=== PATIENT | female | born 1985 | race Caucasian/White ===

== ENCOUNTER 2019-12-17 14:25 | Emergency (ER) | payer OTHER, SELFPAY ==
--- NOTE | ~2019-12-17 | XR_ITS ---
EXAMINATION: XR foot RT min 3V EXAM DATE: 12/17/2019 15:22 INDICATION: Initial encounter following injury, with pain of the right foot. TECHNIQUE: Right foot dorsoplantar, lateral and oblique projections obtained and reviewed. Compariso n is made to prior examination from 11/28/2016. FINDINGS: Right metatarsal bones unremarkable. Small calcaneal spurs. There are no acute fractures or dislocations identified. There is no subcutaneous gas. The soft tissue is unremarkable. There are no radiopaque foreign bodies. IMPRESSION: 1. XR foot RT min 3V exam without acute osseous findings. Reviewed, dictated and finalized at location B. LAB TECHNICIAN
[2019-12-17 14:27] VITALS: BP 145/98; PULSE 103; RESP 18; TEMP 36.2; O2SAT 97
--- NOTE | 2019-12-17 15:18 | PC.NURSE ---
Pt at xray at this time
--- NOTE | 2019-12-17 16:00 | ED.LOWEXIN ---
HPI - Extremity Injury (Lower) General Chief Complaint: Extremity Injury, Lower Stated Complaint: right foot injury Time Seen by Provider: 12/17/19 15:36 Source: patient Mode of arrival: ambulatory Limitations: no limitations History of Present Illness HPI Narrative: This is a 34 year old female that presents to the ER for right foot pain x 1 week. Reports she rolled the ankle. Since she has had increasing pain in the dorsal and lateral surface of the foot. Denies decreased ROM or numbness. Related Data Allergies Allergy/AdvReac Type Severity Reaction Status Date / Time Penicillins Allergy Unknown HIVES Verified 12/17/19 14:29 Review of Systems Review of Systems: Narrative: CONSTITUTIONAL: Denies fever MUSCULOSKELETAL: Reports joint pain, and myalgia. All systems reviewed & are unremarkable except as noted in HPI and below PMFSH Past Medical History Medical History (Updated 12/17/19 @ 16:08 by Marissa Mendoza PA-C) History of depression History of hypertension Surgical History Surgical History (Updated 12/17/19 @ 16:04 by Marissa Mendoza PA-C) History of cholecystectomy History of hernia repair Exam Narrative: Exam Narrative: GENERAL: Well-appearing, well-nourished, and in no acute distress. HEAD: Normocephalic, atraumatic. EYES: EOMI. EXTREMITIES: Normal range of motion. No edema or obvious deformity. Normal DP pulses. Normal sensation SKIN: Warm, dry, no rash. NEURO: No focal deficits. Alert and oriented x3. PSYCH: Normal mood and affect Course Vital Signs Vital signs: Vital Signs Temperature 97.1 F L 12/17/19 14:27 Pulse Rate 103 H 12/17/19 14:27 Respiratory Rate 18 12/17/19 14:27 Blood Pressure 145/98 H 12/17/19 14:27 Pulse Oximetry 97 12/17/19 14:27 Temperature 97.1 F L 12/17/19 14:27 Pulse Rate 103 H 12/17/19 14:27 Respiratory Rate 18 12/17/19 14:27 Blood Pressure 145/98 H 12/17/19 14:27 Pulse Oximetry 97 12/17/19 14:27 MDM - Extremity Injury (Lower) MDM Narrative Medical decision making narrative: Patient presents to the emergency department for right foot pain after an injury 1 week ago. Right foot x-rays without acute osseous abnormalities. Patient was instructed on care of foot sprain. She is to follow-up with primary care doctor. She was given warnings to return to the ER Imaging Data Radiologist's impression: ITS Impressions Foot X-Ray 12/17/19 15:23 IMPRESSION: 1. XR foot RT min 3V exam without acute osseous findings. Critical Care Time Critical Care Time Critical Care Time: No Discharge Plan Discharge Clinical Impression: Right foot sprain Qualifiers: Encounter type: initial encounter Qualified Code(s): S93.601A - Unspecified sprain of right foot, initial encounter Patient Disposition: Home, Self-Care Condition: Stable Instructions: Foot Sprain (ED) Additional Instructions: Return to the emergency department if you experience fever, redness and swelling of your leg, or any other symptoms that are concerning to you Wear BECKI wrap and use crutches. No weight on the affected leg until able to bear weight without pain. Ice and elevate extremity. Pain medication as needed and directed. Follow up with your doctor for further care. Follow-up/Referrals: Jesus,Mesfin Shanks MD [Primary Care Provider] - 1 Week
[2019-12-17] MEDS: KETOROLAC (*BKC) 60 MG/2 ML VIAL IM (16:07)
[2019-12-17 16:22] VITALS: BP 146/100; PULSE 79; RESP 16; TEMP 37; O2SAT 97
== END 2019-12-17 16:23 | disposition home or self-care (01) ==
PROVIDERS: Emergency Provider Emergency Medicine; PCP Family Medicine
DX: S93.601A Unspecified sprain of right foot, initial encounter (principal); X50.0XXA Overexertion from strenuous movement or load, initial encounter
CPT/HCPCS: 73630; 96372; 99283; J1885

== ENCOUNTER 2020-04-21 20:57 | Emergency (ER) | payer OTHER, SELFPAY ==
--- NOTE | ~2020-04-21 | CT_ITS ---
EXAMINATION: CT abdomen pelvis w con INDICATION: Left lower quadrant pain TECHNIQUE: Computed tomographic images of the abdomen and pelvis were obtained after the administrati on of 100 cc of Omnipaque 350 intravenous contrast. The dose-length product (DLP) was 1532.37 mGy-cm. Automated exposure control and iterative reconstruction technique were employed. COMPARISON: 10/18/2012 FINDINGS: Minimal dependent atelectasis is present in the lung bases. The heart size is normal. The g allbladder is surgically absent. There is mild enlargement of the common bile duct and central intrah epatic ducts which is likely due to post cholecystectomy state. The liver, spleen, pancreas,, and adr enal glands are normal. The kidneys are unremarkable. No pathologically enlarged abdominal or pelvic lymph nodes are identified. There is no free intraperitoneal gas or evidence of bowel obstruction. Co lonic diverticula are noted. There is acute inflammatory change adjacent to the distal descending col on. The appendix is normal. There is severe lumbar spondylosis at L4-5. IMPRESSION: 1. Acute, uncomplicated diverticulitis of the distal descending colon. Reviewed, dictated and finalized at location A. R CUTTER
[2020-04-21 21:00] VITALS: BP 148/99; PULSE 87; RESP 16; TEMP 36.4; O2SAT 100
[2020-04-21 22:14] LABS: Add Urine Microscopic? YES; Appearance Urine Clear (Clear); Bilirubin Urine Negative (Negative); Blood Urine 2+ (Negative); Color Urine Yellow (Yellow); Glucose Urine UA Negative (Negative); Ketones Urine Negative (Negative); Leukocyte Esterase Ur Negative LEU/UL (Negative); Mucus Urine Rare /lpf; Nitrate Urine Negative (Negative); Protein Urine Negative (Negative); RBC Urine 0-2 /hpf (0-2); Specific Grav Ur 1.013 (1.001-1.035); Squamous Epithelial Cell Urine Occasional /hpf (Few); Urobilinogen Urine Negative mg/dL (<2.0); WBC Urine 0-3 /hpf
[2020-04-21 22:39] LABS: Basophils Absolute Auto 0.1 K/mm3 (0.0-0.1); Basophils Percent Auto 0.5 % (0.2-1.2); Eosinophils Absolute Auto 1.2 K/mm3 (0-0.3); Eosinophils Percent Auto 6.3 % (0-4.4); Hematocrit 40.2 % (37.0-47.0); Hemoglobin 12.5 g/dL (12.0-15.0); Immature Granulocyte Absolute 0.08 K/mm3 (0.00-0.031); Immature Granulocyte Percent A 0.4 % (0-0.5); Lymphocytes Absolute Auto 4.67 K/mm3 (0.9-3.2); Lymphocytes Percent Auto 24.7 % (18.3-44.2); Mean Corpuscular HGB Conc 31.1 g/dl (32-36); Mean Corpuscular Hemoglobin 25.3 pg (26-34); Mean Corpuscular Volume 81.4 fl (80-100); Mean Platelet Volume 11.1 fl (7.4-10.4); Monocytes Absolute Auto 1.5 K/mm3 (0.1-0.6); Monocytes Percent Auto 7.8 % (2.6-8.5); Neutrophils Absolute Auto 11.4 K/mm3 (1.3-6.7); Neutrophils Percent Auto 60.3 % (45.5-73.1); Platelet Count Result 378 k/mm3 (150-375); Red Blood Count 4.94 M/mm3 (4.2-5.4); Red Cell Distribution Width 16.3 % (11.5-14.5); White Blood Count 18.9 K/mm3 (4.5-10.0)
[2020-04-21 22:50] LABS: Alanine Aminotransferase 16 U/L (4-35); Albumin Level 3.7 g/dL (3.5-5.1); Alkaline Phosphatase 103 U/L (38-126); Anion Gap 5 mmol/L (8-16); Aspartate Amino Transferase 18 U/L (14-36); Bilirubin,Total 0.2 mg/dL (0.2-1.3); Blood Urea Nitrogen 10 mg/dL (7-17); Calcium 8.7 mg/dL (8.4-10.2); Carbon Dioxide 28 mmol/L (22-30); Chloride 107 mmol/L (98-107); Estimated CRCL calculation 175 ml/min; Estimated Glomerular Filt Rate > 60; Glucose 109 mg/dL (65-105); Lipase 94 U/L (23-300); Potassium 3.5 mmol/L (3.4-5.0); Sodium 140 mmol/L (137-145)
--- NOTE | 2020-04-22 00:15 | ED.ABDPAIN ---
HPI - Abdominal Pain General Chief Complaint: Abdominal Pain Stated Complaint: ovarian cyst rupture Time Seen by Provider: 04/21/20 23:38 History of Present Illness HPI narrative: Severe lower abdominal pain since this afternoon. Feels sharp. Assocaited with vaginal spotting. Similar to the pain she had with a rupture ovarian cyst. She does report mild constipation. No nausea, fever, dysuria, hematuria. Related Data Allergies Allergy/AdvReac Type Severity Reaction Status Date / Time Penicillins Allergy Unknown HIVES Verified 12/17/19 14:29 Review of Systems Review of Systems: All systems reviewed & are unremarkable except as noted in HPI and below Constitutional: Constitutional: Denies fever(s) Eyes: Eyes: Reports no additional eye complaints ENT: Reports system reviewed and no additional complaints, except as documented Cardiovascular: Cardiovascular: Denies chest pain Respiratory: Respiratory: Denies dyspnea Gastrointestinal: Gastrointestinal: Reports abdominal pain, Reports constipation, Denies nausea and Denies vomiting Genitourinary: Genitourinary: Reports as per HPI Musculoskeletal: Musculoskeletal: Denies back pain Neurologic: Reports system reviewed and no additional complaints, except as documented [facility] Past Medical History Medical History History of depression History of hypertension Surgical History Surgical History History of cholecystectomy History of hernia repair Social History Social History (Updated 04/22/20 @ 02:50 by Warren Jay MD) Smoking status: Never smoker Exam Const: General: no acute distress and alert Nutritional Appearance: obese Orientation/consciousness: patient oriented x3 HENMT: Head: normal to inspection Neck: Neck: normal visual inspection and no lymphadenopathy Chest: Chest palpation & inspection: no tenderness Resp: Effort & Inspection: normal respiratory effort Auscultation: clear to auscultation bilaterally, no rales, no rhonchi and no wheezes Cardio: Jugular venous distension: no JVD Rate: regular rate Rhythm: regular rhythm Heart sounds: no murmurs GI: Inspection: non-distended GI Palp: Yes Soft to palpation and Yes Tenderness to palpation present (GI) (periumbilical) Skin: General skin exam: normal color Neuro: General: patient oriented x3, moves all extremities, no focal motor deficits and CN's II-XI intact bilaterally Speech: normal speech Extrem: General: normal to inspection and no edema Psych: Appearance: well kempt Affect: normal affect Course Vital Signs Vital signs: Vital Signs Temperature 36.4 C 04/21/20 21:00 Pulse Rate 87 04/21/20 21:00 Respiratory Rate 16 04/21/20 21:00 Blood Pressure 148/99 H 04/21/20 21:00 Pulse Oximetry 100 04/21/20 21:00 Temperature 36.4 C 04/21/20 21:00 Pulse Rate 69 04/22/20 01:55 Respiratory Rate 18 04/22/20 01:55 Blood Pressure 151/102 H 04/22/20 01:55 Pulse Oximetry 100 04/22/20 01:55 MDM - Abdominal Pain MDM Narrative Medical decision making narrative: She has uncomplicated diverticulitis. She is a good candidate fo out patient treatment. Differential Diagnosis Differential diagnosis: Likely acute appendicitis, constipation, diverticulitis, pancreatitis, small bowel obstruction and other (ovarian cyst) Medical Records Attestation: I reviewed the patient's medical records. Lab Data Attestation: I reviewed the patient's lab results. Result diagrams: 04/21/20 21:05 04/21/20 21:05 Labs: Lab Results 04/21/20 04/21/20 04/21/20 Range/Units 21:05 21:05 21:16 WBC 18.9 H (4.5-10.0) K/mm3 RBC 4.94 (4.2-5.4) M/mm3 Hgb 12.5 (12.0-15.0) g/dL Hct 40.2 (37.0-47.0) % MCV 81.4 (80-100) fl MCH 25.3 L (26-34) pg MCHC 31.1 L (32-36) g/dl RDW 16.3 H (11.5-14.5) % Plt Count
[2020-04-22] MEDS: fentaNYL CITRATE INJ (*CRX) 100 MCG/2 ML VIAL 50 MCG IV PUSH (00:53)
[2020-04-22] MEDS: CIPROFLOXACIN 500 MG TAB PO (01:52)
[2020-04-22] MEDS: metroNIDAZOLE 250 MG TABLET 500 MG PO (01:53)
[2020-04-22 01:55] VITALS: BP 151/102; PULSE 69; RESP 18; O2SAT 100
[2020-04-22 03:04] VITALS: BP 149/95; PULSE 71; RESP 20; O2SAT 98
== END 2020-04-22 03:05 | disposition home or self-care (01) ==
PROVIDERS: Emergency Provider Emergency Medicine; PCP Family Medicine
DX: K57.32 Diverticulitis of large intestine without perforation or abscess without bleeding (principal); I10 Essential (primary) hypertension
CPT/HCPCS: 36415; 74177; 80053; 81001; 81025; 83690; 85025; 96374; 99284; A9270; J3010; Q9967

== ENCOUNTER 2021-02-13 14:06 | Emergency (ER) | payer OTHER, SELFPAY ==
--- NOTE | ~2021-02-13 | XR_ITS ---
EXAMINATION: XR chest 1V portable EXAM DATE: 02/13/2021 17:24 INDICATION: Cough TECHNIQUE: Portable AP frontal chest x-ray was obtained. There are no prior studies for comparison. FINDINGS: The lungs are clear. There are no pleural effusions. The cardiomediastinal silhouette is within normal limits. There is no pneumothorax suspected. The bones and soft tissues are unremarkab le. IMPRESSION: No acute cardiopulmonary findings. Reviewed, dictated and finalized at location A. GHT RECEIVER
--- NOTE | ~2021-02-13 | XR_ITS ---
EXAMINATION: XR knee RT min 4V EXAM DATE: 02/13/2021 14:51 INDICATION: Anterior right knee pain, no known injury. TECHNIQUE: Right knee lateral, frontal AP, frontal PA tunnel, sunrise projections. There is no prior study for comparison. FINDINGS: No evidence osteochondral defect or joint body in the right knee joint. There are no acut e fractures or dislocations identified. There is no subcutaneous gas. The soft tissue is unremarkab le. There are no radiopaque foreign bodies. Mild osteoarthritis. IMPRESSION: Mild right knee osteoarthritis. Reviewed, dictated and finalized at location A. CONTROL WORKER
[2021-02-13 14:13] VITALS: BP 150/98; PULSE 126; RESP 22; TEMP 37.8; O2SAT 97
[2021-02-13] MEDS: MORPHINE SULFATE (*CRX) 4 MG/ML INJ IV PUSH (15:16)
[2021-02-13] MEDS: SODIUM CHLORIDE 0.9% IV 1,000 ML 999 ML IV CONT (15:17)
[2021-02-13] MEDS: ACETAMINOPHEN 500 MG TABLET 1000 MG PO (15:17)
[2021-02-13 15:18] LABS: Basophils Absolute Auto 0.1 K/mm3 (0.0-0.1); Basophils Percent Auto 0.5 % (0.2-1.2); Eosinophils Absolute Auto 1.1 K/mm3 (0-0.3); Eosinophils Percent Auto 6.6 % (0-4.4); Hematocrit 38.2 % (37.0-47.0); Hemoglobin 12.4 g/dL (12.0-15.0); Immature Granulocyte Absolute 0.09 K/mm3 (0.00-0.031); Immature Granulocyte Percent A 0.5 % (0-0.5); Lymphocytes Absolute Auto 0.55 K/mm3 (0.9-3.2); Lymphocytes Percent Auto 3.3 % (18.3-44.2); Mean Corpuscular HGB Conc 32.5 g/dl (32-36); Mean Corpuscular Hemoglobin 25.4 pg (26-34); Mean Corpuscular Volume 78.3 fl (80-100); Mean Platelet Volume 10.1 fl (7.4-10.4); Monocytes Absolute Auto 1.5 K/mm3 (0.1-0.6); Monocytes Percent Auto 8.8 % (2.6-8.5); Neutrophils Absolute Auto 13.6 K/mm3 (1.3-6.7); Neutrophils Percent Auto 80.3 % (45.5-73.1); Platelet Count Result 352 k/mm3 (150-375); Red Blood Count 4.88 M/mm3 (4.2-5.4); Red Cell Distribution Width 16.9 % (11.5-14.5); White Blood Count 16.9 K/mm3 (4.5-10.0)
[2021-02-13 15:26] LABS: Lactic Acid Reflex 1.4 mmol/L (0.7-2.1)
[2021-02-13 15:30] LABS: Anion Gap 11 mmol/L (8-16); Blood Urea Nitrogen 8 mg/dL (7-17); CRP 2.3 mg/dL (<1.0); Calcium 9.1 mg/dL (8.4-10.2); Carbon Dioxide 23 mmol/L (22-30); Chloride 101 mmol/L (98-107); Estimated CRCL calculation 130 ml/min; Estimated Glomerular Filt Rate > 60; Glucose 92 mg/dL (65-110); Potassium 3.9 mmol/L (3.4-5.0); Sodium 135 mmol/L (137-145)
--- NOTE | 2021-02-13 15:31 | ED.GENADULT ---
HPI - General Adult General Chief complaint: Extremity Injury, Lower Stated complaint: cant put weight on right leg, prev ACL inj Time Seen by Provider: 02/13/21 14:35 History of Present Illness HPI narrative: Patient is a 36-year-old female who presents ER with right knee pain. Aching over the last couple days. Woke up today and has severe pain in the knee and cannot stand on it. No trauma. She has developed fever today. No redness or swelling to the knee. Patient is vaccinated against COVID-19. 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 Patient is also having a headache at this time. No photophobia or phonophobia. She has not taken any medication for. No numbness or tingling in the arms or legs. No neck stiffness. Patient reports she is sexually active with one partner for the last 4 years. No vaginal discharge or concern for STI. No urinary frequency urgency or dysuria. Related Data Allergies Allergy/AdvReac Type Severity Reaction Status Date / Time Penicillins Allergy Unknown HIVES Verified 12/17/19 14:29 cheese Allergy Rash Verified 02/13/21 14:18 Review of Systems Review of Systems: All systems reviewed & are unremarkable except as noted in HPI and below Constitutional: Constitutional: Reports chills and Reports fever(s) ENT: Denies nasal congestion and Denies sore throat Respiratory: Respiratory: Denies cough and Denies dyspnea Gastrointestinal: Gastrointestinal: Denies abdominal pain, Denies nausea and Denies vomiting Genitourinary: Genitourinary: Denies nocturia, Denies dysuria, Denies urinary urgency and Denies vaginal discharge Musculoskeletal: Musculoskeletal: Reports arthralgias, Denies joint swelling and Denies muscle cramps Neurologic: Reports headache(s), Denies focal weakness and Denies numbness PMFSH Past Medical History Medical History History of depression History of hypertension Surgical History Surgical History History of cholecystectomy History of hernia repair Social History Social History (Updated 04/22/20 @ 02:50 by Warren Jay MD) Smoking status: Never smoker Exam Narrative: GENERAL: Well-appearing, well-nourished, and in no acute distress. HEAD: Normocephalic, atraumatic. EYES: PERRL and EOMI. NECK: Supple. Normal range of motion without meningismus. CHEST: Clear to auscultation. No respiratory distress. HEART: Tachycardic and regular. Normal peripheral pulses. ABDOMEN: Soft, nontender, nondistended. EXTREMITIES: Focused evaluation of right lower extremity reveals normal range of motion without redness or swelling to the knee. No localizing tenderness. SKIN: Warm, dry, no rash. NEURO: Alert and oriented x3. PSYCH: Normal mood and affect. Course Course Emergency Course: Synovial fluid with 1400 white blood cells, yellow and hazy but you can see through it. Not consistent with septic joint as the knee is not red and hot and she has range of motion. Patient feels much better from a pain standpoint in her head and her knee since she has had morphine as well as Toradol and Tylenol. She has no urinary symptoms. No evidence of pneumonia. Influenza negative. Patient will be swabbed for Covid and will self isolate. Vital Signs Vital signs: Vital Signs Temperature 100.1 F H 02/13/21 14:13 Pulse Rate 126 H 02/13/21 14:13 Respiratory Rate 22 H 02/13/21 14:13 Blood Pressure 150/98 H 02/13/21 14:13 Pulse Oximetry 97 02/13/21 14:13 Temperature 100.8 F H 02/13/21 16:42 Pulse Rate 104 H 02/13/21 18:12 Respiratory Rate 17 02/13/21 18:07 Blood Pressure 118/70 02/13/21 18:07 Pulse Oximetry 97 02/13/21 18:12 Procedures Joint Aspiration/Injection Joint Asp./Inject. 1: Joint Aspiration Date: 02/13/21
[2021-02-13 15:49] LABS: Erythrocyte Sedimentation Rate 14 mm/hr (0-20)
[2021-02-13 16:42] VITALS: BP 111/62; PULSE 107; RESP 18; TEMP 38.2; O2SAT 94
[2021-02-13 17:35] LABS: Appearance Synovial Fluid Hazy (Clear); Color Synovial Fluid Yellow (Colorless); Source Synovial Fluid Synovial fluid
[2021-02-13 17:36] LABS: Lymphocytes Synovial Fluid 77 %; Monocytes Synovial Fluid 12 %; Neutrophils Synovial Fluid 11 % (0-25); Nucleated Cell Synovial Fluid 1484 /uL (0-200); RBC Synovial Fluid 0 /uL (0-0)
[2021-02-13 17:40] LABS: Crystals Synovial Fluid None Seen (None Seen)
[2021-02-13 17:46] VITALS: BP 128/84; PULSE 100; RESP 18; O2SAT 94
[2021-02-13] MEDS: KETOROLAC 30 MG/ML VIAL (*BKC) IV PUSH (17:47)
[2021-02-13 18:07] VITALS: BP 118/70; PULSE 108; RESP 17; O2SAT 93
[2021-02-13 18:12] VITALS: PULSE 104; O2SAT 97
[2021-02-13 20:47] VITALS: TEMP 37.6
[2021-02-14 14:14] LABS: SARS-CoV-2 RNA PCR Positive
[2021-02-18 16:24] LABS: Glucose Synovial Fluid 97 mg/dL
== END 2021-02-13 20:48 | disposition home or self-care (01) ==
PROVIDERS: Emergency Provider Emergency Medicine; PCP Family Medicine
DX: U07.1 COVID-19 (principal); M25.561 Pain in right knee; I10 Essential (primary) hypertension
CPT/HCPCS: 20610; 36415; 71045; 73564; 80048; 82945; 83605; 84157; 85025; 85652; 86140; 87040; 87070; 87075; 87205; 87804; 89051; 89060; 96361; 96374; 96375; 99284; A9270; C9803; J1885; J2270; J7030; U0003; U0005

== ENCOUNTER 2021-06-22 17:55 | Emergency (ER) | payer OTHER, SELFPAY ==
--- NOTE | ~2021-06-22 | CT_ITS ---
EXAMINATION: CT abdomen pelvis w con DATE: 06/22/2021 20:37 INDICATION: LLQ pain hx of diverticulitis TECHNIQUE: Computed tomography (CT) of the abdomen and pelvis was performed with 100 mL Omnipaque-300 intravenous contrast. Automated exposure control and iterative reconstruction technique were employe d. The dose-length product was 1499.55 mGy-cm. COMPARISON: 04/22/2020. FINDINGS: Lower thorax: Unremarkable Liver: Normal. Biliary/Gallbladder: Gallbladder is absent. Mild bile duct dilation likely secondary to cholecystecto my. Spleen: Normal. Pancreas: No mass or duct dilation. Adrenals:1.2 cm indeterminate density right adrenal mass. Kidneys: No mass, stone, or hydronephrosis. GI tract: No small or large bowel dilation. Normal appendix. Diverticulosis. Mild short segment peric olonic inflammatory change at the mid descending colon. Mesentery/Peritoneum: No ascites, mass, or free air. Retroperitoneum: No mass. Pelvis: Pelvic organs are within normal limits. Soft Tissues: Soft tissues and body wall unremarkable. Bones: No acute osseous finding. IMPRESSION: Acute uncomplicated diverticulitis involving the mid descending colon. Indeterminate 1.2 cm right adr enal mass, probably benign, consider 12 month follow-up adrenal CT for further evaluation. Reviewed, dictated and finalized at location K. IMPRESSION: Acute uncomplicated diverticulitis involving the mid descending colon. Indeterm inate 1.2 cm right adrenal mass, probably benign, consider 12 month follow-up a drenal CT for further evaluation.
[2021-06-22 18:04] VITALS: BP 151/93; PULSE 69; RESP 18; TEMP 36.5; O2SAT 98
[2021-06-22 18:50] LABS: Basophils Absolute Auto 0.1 K/mm3 (0.0-0.1); Basophils Percent Auto 0.6 % (0.2-1.2); Eosinophils Percent Auto 5.6 % (0-4.4); Hematocrit 37.9 % (37.0-47.0); Hemoglobin 11.4 g/dL (12.0-15.0); Immature Granulocyte Absolute 0.08 K/mm3 (0.00-0.031); Immature Granulocyte Percent A 0.5 % (0-0.5); Lymphocytes Absolute Auto 4.04 K/mm3 (0.9-3.2); Mean Corpuscular HGB Conc 30.1 g/dl (32-36); Mean Corpuscular Hemoglobin 23.6 pg (26-34); Mean Corpuscular Volume 78.3 fl (80-100); Mean Platelet Volume 9.9 fl (7.4-10.4); Monocytes Absolute Auto 1.2 K/mm3 (0.1-0.6); Monocytes Percent Auto 6.6 % (2.6-8.5); Neutrophils Absolute Auto 11.2 K/mm3 (1.3-6.7); Neutrophils Percent Auto 63.7 % (45.5-73.1); Platelet Count Result 406 k/mm3 (150-375); Red Blood Count 4.84 M/mm3 (4.2-5.4); Red Cell Distribution Width 17.1 % (11.5-14.5); White Blood Count 17.6 K/mm3 (4.5-10.0)
[2021-06-22 18:51] LABS: Appearance Urine Clear (Clear); Bilirubin Urine Negative (Negative); Blood Urine Negative (Negative); Color Urine Yellow (Yellow); Glucose Urine UA Negative (Negative); Ketones Urine Negative (Negative); Leukocyte Esterase Ur Negative LEU/UL (Negative); Nitrate Urine Negative (Negative); Protein Urine Negative (Negative); Specific Grav Ur 1.015 (1.001-1.035); Urobilinogen Urine 0.2 mg/dL (<2.0)
[2021-06-22 18:55] LABS: Mucus Urine Rare /lpf; RBC Urine 0-2 /hpf (0-2); Squamous Epithelial Cell Urine Few /hpf (Few); WBC Urine 0-3 /hpf
[2021-06-22 18:56] LABS: Add Urine Microscopic? YES
[2021-06-22 19:00] LABS: Alanine Aminotransferase 19 U/L (6-35); Albumin Level 3.9 g/dL (3.5-5.1); Alkaline Phosphatase 95 U/L (38-126); Anion Gap 5 mmol/L (8-16); Aspartate Amino Transferase 23 U/L (14-36); Bilirubin,Total 0.1 mg/dL (0.2-1.3); Blood Urea Nitrogen 8 mg/dL (7-17); Calcium 8.5 mg/dL (8.4-10.2); Carbon Dioxide 27 mmol/L (22-30); Chloride 106 mmol/L (98-107); Estimated CRCL calculation 114 ml/min; Estimated Glomerular Filt Rate > 60; Glucose 104 mg/dL (65-110); Lipase 89 U/L (23-300); Sodium 138 mmol/L (137-145)
[2021-06-22 19:16] VITALS: BP 154/68; PULSE 68; RESP 26
--- NOTE | 2021-06-22 19:30 | ED.ABDPAIN ---
HPI - Abdominal Pain General Chief Complaint: Abdominal Pain Stated Complaint: ovarian cyst rupture Time Seen by Provider: 06/22/21 19:13 Source: patient History of Present Illness HPI narrative: Patient presents with left lower quadrant abdominal pain. For symptoms been present since yesterday has been getting progressively worse so she came to the ER for further evaluation. Reports a history of ovarian cyst rupture and this feels similar to those episodes. She also reports a history of diverticulitis requiring antibiotics. Denies any nausea or vomiting. Reports pain in her bladder when she is fully distended but it is alleviated when she urinates. Just with some mild diarrhea history of IBS and is unsure if this is due to her IBS or if this is new. Related Data Allergies Allergy/AdvReac Type Severity Reaction Status Date / Time Penicillins Allergy Unknown HIVES Verified 12/17/19 14:29 cheese Allergy Rash Verified 02/13/21 14:18 Review of Systems Review of Systems: CONSTITUTIONAL: Denies fever, chills, or sweats. EYES: Denies visual changes, redness, or discharge. ENT: Denies rhinorrhea, congestion, sore throat, or otalgia. CARDIOVASCULAR: Denies chest pain, palpitations, or edema. RESPIRATORY: Denies cough or dyspnea. GASTROINTESTINAL: Denies nausea, vomiting. GENITOURINARY: Denies dysuria or hematuria. SKIN: Denies rash or itching. MUSCULOSKELETAL: Denies back pain, joint pain, or myalgia. NEUROLOGIC: Denies headache, numbness, dizziness, or weakness. PSYCHIATRIC: Denies anxiety or depression. All systems reviewed & are unremarkable except as noted in HPI and below PMFSH Past Medical History Medical History History of depression History of hypertension Surgical History Surgical History History of cholecystectomy History of hernia repair Social History Social History Smoking status: Never smoker Exam Narrative: GENERAL: Well-appearing, well-nourished, and in no acute distress. HEAD: Normocephalic, atraumatic. EYES: PERRLA and EOMI. ENT: Nares clear, no rhinorrhea or epistaxis. Mucous membranes moist. NECK: Supple. No masses. No JVD CHEST: Clear to auscultation. No respiratory distress. No wheezes rales or rhonchi HEART: Regular rate and rhythm. No murmur heard. Normal peripheral pulses. ABDOMEN: Moderate tenderness in the left lower quadrant with guarding and rebound soft, nondistended. EXTREMITIES: Normal range of motion. No edema. SKIN: Warm, dry, no rash. NEURO: No focal deficits. Alert and oriented x3. PSYCH: Normal mood and affect. Course Reevaluation(s) Reevaluation #1: Patient resting results and plan reviewed with patient. Patient is comfortable outpatient plan. Date: 06/22/21 Time: 21:14 Vital Signs Vital signs: Vital Signs Temperature 36.5 C 06/22/21 18:04 Pulse Rate 69 06/22/21 18:04 Respiratory Rate 18 06/22/21 18:04 Blood Pressure 151/93 H 06/22/21 18:04 Pulse Oximetry 98 06/22/21 18:04 Temperature 36.5 C 06/22/21 18:04 Pulse Rate 61 06/22/21 21:17 Respiratory Rate 18 06/22/21 21:17 Blood Pressure 145/94 H 06/22/21 21:17 Pulse Oximetry 99 06/22/21 21:17 MDM - Abdominal Pain MDM Narrative Medical decision making narrative: H&P as above, vss, pt looks clinically well, exam with left lower abdominal pain, labs with leukocytosis otherwise unremarkable, img with concern for uncomplicated diverticulitis, additional labs/img considered, symptomatic relief available as needed, on reevaluation pt continues to looks clinically well. Suspect diverticulitis, dns perforation, bowel obstruction, severe sepsis, abscess. plan to tx/monitor as op w/ pcm f/u findings/plan discussed with pt, pt agree/comfortable with plan, return precautions given Lab Data Result diagrams: 06/22/21 18:41
[2021-06-22] MEDS: SODIUM CHLORIDE 0.9% IV 1,000 ML 999 ML IV CONT (20:13)
[2021-06-22] MEDS: KETOROLAC 15 MG/ML VIAL (*BKC) IV PUSH (20:15)
[2021-06-22 20:16] VITALS: BP 114/86; PULSE 60; RESP 12
[2021-06-22 20:22] VITALS: BP 114/86; PULSE 71; RESP 18; O2SAT 100
[2021-06-22 21:17] VITALS: BP 145/94; PULSE 61; RESP 18; O2SAT 99
[2021-06-22] MEDS: metroNIDAZOLE 250 MG TABLET 500 MG PO (21:18)
[2021-06-22] MEDS: levoFLOXacin 750 MG TABLET PO (21:36)
== END 2021-06-22 21:42 | disposition home or self-care (01) ==
PROVIDERS: Emergency Provider Emergency Medicine; PCP Family Medicine
DX: K57.32 Diverticulitis of large intestine without perforation or abscess without bleeding (principal); E27.8 Other specified disorders of adrenal gland; D72.829 Elevated white blood cell count, unspecified; I10 Essential (primary) hypertension
CPT/HCPCS: 36415; 74177; 80053; 81001; 81025; 83690; 85025; 96361; 96365; 96375; 99284; A9270; J0131; J1885; J7030; Q9967

== ENCOUNTER 2022-01-26 08:51 | Emergency (ER) | payer OTHER, SELFPAY ==
--- NOTE | 2022-01-26 08:55 | ED.URI ---
HPI - URI/Sore Throat General Chief Complaint: Upper Respiratory Infection Stated Complaint: sore throat Time Seen by Provider: 01/26/22 09:06 Source: patient and RN notes reviewed Mode of arrival: ambulatory Limitations: no limitations History of Present Illness HPI Narrative: 32-year-old female presents concern for sore throat, headache, body aches, cough. Reports symptoms started last night. Reports she took a COVID test last night at work was negative. 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 She reports using cough drops MD elicited complaint: cough and sore throat Related Data Home Medications Medication Instructions Recorded Confirmed gabapentin 600 mg tablet 300 mg PO DIRECTED 01/26/22 01/26/22 Allergies Allergy/AdvReac Type Severity Reaction Status Date / Time Penicillins Allergy Unknown HIVES Verified 01/26/22 09:04 cheese Allergy Rash Verified 01/26/22 09:04 Review of Systems Review of Systems: CONSTITUTIONAL: Reports malaise, chills, sweats EYES: Denies visual changes, redness, or discharge. ENT: Reports rhinorrhea, congestion and sore throat. CARDIOVASCULAR: Denies chest pain, palpitations, or edema. RESPIRATORY: Reports cough. Denies dyspnea. GASTROINTESTINAL: Denies abdominal pain, nausea, vomiting, diarrhea SKIN: Denies rash or itching. MUSCULOSKELETAL: Reports myalgia. NEUROLOGIC: Denies headache. All systems reviewed & are unremarkable except as noted in HPI and below PMFSH Past Medical History Medical History History of depression History of hypertension Surgical History Surgical History History of cholecystectomy History of hernia repair Social History Social History Smoking status: Never smoker Comments At time of signature, agree with nursing past medical, surgical, social and family history. There is no relevant family history pertinent to the presenting complaint Exam Narrative: GENERAL: Well-appearing, well-nourished, and in no acute distress. HEAD: Normocephalic EYES: PERRLA, conjunctivae clear ENT: Nares clear, clear discharge. Mucous membranes moist. TM pearly patel with dull light reflex bilaterally; no tragal tenderness. Oropharynx erythematous without lesions. Tonsils enlarged and without exudate, no drooling, no hoarseness, no trismus, uvula midline. NECK: Supple. No lymphadenopathy CHEST: Clear to auscultation, breath sounds equal. No wheezing, rhonchi, rales, or stridor. No respiratory distress, speaks in full sentences. Cough noted HEART: Regular rate and rhythm. No murmur heard. SKIN: Warm, dry, no rash. NEURO: Alert and oriented x3. PSYCH: Normal mood and affect Course Course Emergency Course: Patient is aware of diagnosis, understands and agrees to treatment plan. Anticipatory guidance given. Patient agrees to follow-up as directed and is aware of reasons to seek care at the emergency department. Portions of this record may have been created with voice recognition software Level of Care: Express Care Visit Vital Signs Vital signs: Reviewed. MDM - URI/Sore Throat MDM Narrative Medical decision making narrative: Differential diagnosis considered: Escoto virus, strep pharyngitis, allergic rhinitis, upper respiratory tract infection, sinusitis, rhinosinusitis, nasopharyngitis. viral pharyngitis, otitis media, otitis externa, pneumonia, bronchitis, viral cough syndrome, viral syndrome, and influenza. Exam findings show no acute concerns or changes; patient is non-toxic appearing and is in no distress. Patient is appropriate for outpatient treatment and follow-up. Lab Data Attestation: I reviewed the patient's lab results. Critical Care Time Critical Care Time Critical Care Time: No Discharge Plan Discharge Clinical Impression: Acute viral syndrome Patient Disposition: Home, Self
[2022-01-26 08:59] VITALS: BP 143/88; PULSE 93; RESP 16; TEMP 37.4; O2SAT 99
== END 2022-01-26 09:50 | disposition home or self-care (01) ==
PROVIDERS: Emergency Provider Nurse Practitioner; PCP Family Medicine
DX: B34.9 Viral infection, unspecified (principal); I10 Essential (primary) hypertension
CPT/HCPCS: 87081; 87804; 87880; 99213; G0463

== ENCOUNTER 2022-02-27 21:10 | Emergency (ER) | payer OTHER, SELFPAY ==
--- NOTE | ~2022-02-27 | XR_ITS ---
EXAMINATION: XR chest 2V DATE: 02/27/2022 21:20 INDICATION: Left sided chest pain. Hypertension. TECHNIQUE: PA and lateral views of the chest were obtained. COMPARISON: Chest radiograph dated 02/13/2021 FINDINGS: The lungs remain clear with no focal airspace opacities, pulmonary edema, pleural effusion or pneumot horax. The cardiomediastinal silhouette is normal. Mild thoracic spondylosis. IMPRESSION: 1. No acute cardiopulmonary disease. Reviewed, dictated and finalized at location A. HANDLER
--- NOTE | 2022-02-27 21:11 | ECG_ITS ---
Measurements Intervals Rector Rate: 79 P: 50 OR: 153 QRS: 53 QRSD: 97 T: 39 QT: 369 QTc: 424 Interpretive Statements SINUS RHYTHM WITH SINUS ARRHYTHMIA BASELINE ARTIFACT- I, III, AVL, V6 NORMAL ECG NO PREVIOUS ECG AVAILABLE FOR COMPARISON Electronically Signed On 02-28-2022 7:54:55 [employer] by Waylon Morales D.O.
[2022-02-27 21:14] VITALS: BP 146/96; PULSE 98; RESP 18; TEMP 36.3; O2SAT 99
[2022-02-27 21:36] LABS: Basophils Absolute Auto 0.1 K/mm3 (0.0-0.1); Basophils Percent Auto 0.5 % (0.2-1.2); Eosinophils Absolute Auto 0.7 K/mm3 (0-0.3); Hemoglobin 12.6 g/dL (12.0-15.0); Immature Granulocyte Absolute 0.07 K/mm3 (0.00-0.031); Immature Granulocyte Percent A 0.5 % (0-0.5); Lymphocytes Percent Auto 25.6 % (18.3-44.2); Mean Corpuscular Hemoglobin 23.2 pg (26-34); Mean Corpuscular Volume 77.2 fl (80-100); Mean Platelet Volume 9.7 fl (7.4-10.4); Monocytes Absolute Auto 0.7 K/mm3 (0.1-0.6); Monocytes Percent Auto 5.7 % (2.6-8.5); Neutrophils Absolute Auto 8.1 K/mm3 (1.3-6.7); Neutrophils Percent Auto 62.7 % (45.5-73.1); Platelet Count Result 423 k/mm3 (150-375); Red Blood Count 5.44 M/mm3 (4.2-5.4); White Blood Count 12.9 K/mm3 (4.5-10.0)
--- NOTE | 2022-02-27 21:37 | ED.CHESTPAIN ---
HPI - Chest Pain General Chief Complaint: Chest Pain Stated Complaint: Cp Time Seen by Provider: 02/27/22 21:35 History of Present Illness HPI narrative: 37-year-old female with a history of smoking, obesity, here for evaluation of chest pain. Patient states that she was getting ready for work when she felt some discomfort in the left side of her chest/neck that moved down her left arm. Described as sharp and shooting with intermittent paresthesias. She has had no previous similar sensation. The pain is worse when she turns her head. No nausea, shortness of breath, diaphoresis. She has not taken any medication for symptoms. She has noticed that her blood pressures have been running high at home but she is taking them with a wrist cuff. She is not on antihypertensives. Related Data Home Medications Medication Instructions Recorded Confirmed gabapentin 600 mg tablet 300 mg PO DIRECTED 01/26/22 01/26/22 Allergies Allergy/AdvReac Type Severity Reaction Status Date / Time Penicillins Allergy Unknown HIVES Verified 02/27/22 21:43 cheese Allergy Rash Verified 02/27/22 21:43 Review of Systems Review of Systems: Gen.: Denies fevers or chills Eyes: Denies eye pain or visual change ENT: Denies congestion Respiratory: Denies shortness of breath or cough CV: Reports left-sided chest pain GI: Denies abdominal pain nausea, emesis or diarrhea denies burning, urgency, frequency or hematuria Musculoskeletal: Denies back pain or muscle pain Neuro: Denies numbness, tingling, weakness or focal weakness Skin: Denies rash Except as documented, all other systems reviewed and negative PMFSH Past Medical History Medical History History of depression History of hypertension Surgical History Surgical History History of cholecystectomy History of hernia repair Social History Social History Smoking status: Never smoker Exam Narrative: APPEARANCE: Well appearing, no pain in distress, well-nourished. Head: Normocephalic and atraumatic. EYES: PERRLA/EOMI, conjunctivae clear NOSE: No nasal drainage EARS: External ear normal in appearance THROAT: Oropharynx is clear. Mucous membranes are moist. NECK: Supple. No adenopathy, no masses. RESPIRATORY: Airway patent, respirations nonlabored. Clear to auscultation bilaterally, no rales, rhonchi, wheezing. CARDIOVASCULAR: Equal pulses in all 4 extremities. Regular rate and rhythm without murmurs, rubs, or gallops. ABDOMINAL: Normoactive bowel sounds. Soft, nontender, nondistended. No rebound tenderness or guarding. MUSCULOSKELETAL: Spurling's test is positive. Palpable muscle spasm to the left trapezius muscle along the insertion of the neck. Extremities are warm and well-perfused. Moves all extremities well. No edema. NEURO: Normal speech. No focal neurologic deficits. SKIN: Skin is warm and dry. No rashes. PSYCHIATRIC: Normal affect/mood. Course Vital Signs Vital signs: Vital Signs Temperature 97.4 F L 02/27/22 21:14 Pulse Rate 98 02/27/22 21:14 Respiratory Rate 18 02/27/22 21:14 Blood Pressure 146/96 H 02/27/22 21:14 Pulse Oximetry 99 02/27/22 21:14 Oxygen Delivery Room Air 02/27/22 21:14 Temperature 97.4 F L 02/27/22 21:14 Pulse Rate 84 02/28/22 01:00 Respiratory Rate 20 02/28/22 01:00 Blood Pressure 111/77 02/28/22 01:00 Pulse Oximetry 95 02/28/22 01:00 Oxygen Delivery Room Air 02/27/22 21:14 MDM - Chest Pain MDM Narrative Medical decision making narrative: 37-year-old female here for evaluation of chest pain and left upper extremity numbness and tingling, worse with position of her head. Clinical picture and physical exam sounds like cervical radiculopathy but given her risk factors and chest pain a cardiac work-up was initiated. Heart and lung
--- NOTE | 2022-02-27 21:40 | PC.NURSE ---
pt c/o l sided cp that radiates to l arm and neck. states pain is worse with movement. states pain started when she was getting ready for work. denies any n/v or sob.
[2022-02-27 21:47] LABS: Prothrombin Time 12.9 Seconds (11.1-14.7)
[2022-02-27 21:49] LABS: Alanine Aminotransferase 26 U/L (6-35); Albumin Level 4.3 g/dL (3.5-5.1); Alkaline Phosphatase 122 U/L (38-126); Anion Gap 6 mmol/L (8-16); Aspartate Amino Transferase 21 U/L (14-36); Bilirubin,Total 0.1 mg/dL (0.2-1.3); Blood Urea Nitrogen 14 mg/dL (7-17); Calcium 8.8 mg/dL (8.4-10.2); Carbon Dioxide 24 mmol/L (22-30); Chloride 108 mmol/L (98-107); Estimated CRCL calculation 128 ml/min; Estimated Glomerular Filt Rate > 60; Glucose 135 mg/dL (65-110); Lipase 130 U/L (23-300); Potassium 4.2 mmol/L (3.4-5.0); Sodium 138 mmol/L (137-145)
[2022-02-27 22:00] LABS: Troponin I < 0.012 ng/mL (0.000-0.034)
[2022-02-27 22:20] LABS: D Dimer 0.38 ug/mL (<0.48)
[2022-02-27] MEDS: HYDROcodone/acetaminophen (*CRX) 5-325 MG TABLET 1 TAB PO (22:49)
[2022-02-27 23:00] VITALS: BP 122/62; PULSE 79; RESP 20; O2SAT 100
[2022-02-28 01:00] VITALS: BP 111/77; PULSE 84; RESP 20; O2SAT 95
[2022-02-28 01:13] LABS: Troponin I < 0.012 ng/mL (0.000-0.034)
== END 2022-02-28 01:46 | disposition home or self-care (01) ==
PROVIDERS: Emergency Medicine; Emergency Provider Physician Assistant; PCP Family Medicine
DX: R07.89 Other chest pain (principal); M54.12 Radiculopathy, cervical region; I10 Essential (primary) hypertension; E66.9 Obesity, unspecified; Z68.41 Body mass index [BMI] 40.0-44.9, adult
CPT/HCPCS: 36415; 71046; 80053; 83690; 84484; 85025; 85380; 85610; 85730; 93005; 99284; A9270

== ENCOUNTER 2022-05-05 06:38 | Emergency (ER) | payer OTHER, SELFPAY ==
--- NOTE | ~2022-05-05 | US_ITS ---
Duplex Sonography of the left extremity: Indication: Pain Findings: Sagittal and transverse B-mode images as well as color-flow imaging were performed on the l eft femoral and popliteal veins. B-mode examination was done without and with compression in the tra nsverse plane. There is good visualization of the common femoral, proximal profunda femoral, superfi cial femoral, greater saphenous, and popliteal veins. Normal flow was seen on color-flow imaging. No rmal compressibility was demonstrated. Left posterior tibial and peroneal veins also appear patent. Small left-sided Perez cyst present. Impression: No evidence of deep vein thrombosis involving the left lower extremity. Probable small left-sided Perez's cyst. Reviewed, dictated and finalized at location M. Impression: No evidence of deep vein thrombosis involving the left lower extremity. Probable small left-sided Perez's cyst.
[2022-05-05 06:45] VITALS: PULSE 106; RESP 20; TEMP 36.1; O2SAT 98
--- NOTE | 2022-05-05 07:01 | PC.NURSE ---
pt states she has been working all day and notice she had swelling to BLE. states has back problems and took pain meds without any relief. states she has tingling to l foot.
--- NOTE | 2022-05-05 07:10 | ED.EXTPRO ---
HPI - Extremity Problem General Chief complaint: Extremity Problem,Nontraumatic Stated complaint: left leg swelling and pain Time Seen by Provider: 05/05/22 06:58 History of Present Illness HPI Narrative: Patient is a 37-year-old female presenting with left leg pain and swelling. Patient states that starting yesterday while at work she noticed soreness in her left calf. States that when she got home from work when she took off her clothes she noticed that her legs looked swollen. States that they both look swollen but the left is worse than the right. States that she only has pain in the left leg. Describes it as sharp and stabbing. States that she took a Vicodin last night and then some Tylenol and ibuprofen this morning with minimal relief. She denies recent injuries. Denies fevers, chest pain, shortness of breath, abdominal pain, vomiting, numbness or weakness. Related Data Home Medications Medication Instructions Recorded Confirmed gabapentin 600 mg tablet 300 mg PO DIRECTED 01/26/22 01/26/22 Allergies Allergy/AdvReac Type Severity Reaction Status Date / Time Penicillins Allergy Unknown HIVES Verified 05/05/22 06:51 cheese Allergy Rash Verified 05/05/22 06:51 Review of Systems Review of Systems: All systems reviewed & are unremarkable except as noted in HPI and below PMFSH Past Medical History Medical History History of depression History of hypertension Surgical History Surgical History History of cholecystectomy History of hernia repair Social History Social History Smoking status: Never smoker Exam Narrative: GENERAL: Well-appearing, well-nourished, and in no acute distress. HEAD: Normocephalic, atraumatic. EYES: PERRLA and EOMI. ENT: Nares clear, no rhinorrhea or epistaxis. Mucous membranes moist. NECK: Supple. CHEST: Clear to auscultation. No respiratory distress. HEART: Regular rate and rhythm. No murmur heard. Normal peripheral pulses. ABDOMEN: Soft, nontender, nondistended, normal active bowel sounds. EXTREMITIES: Normal range of motion. I do not appreciate significant edema to either lower extremity, no erythema, DP pulses 2+, soft compartments, no skin changes SKIN: Warm, dry, no rash. NEURO: No focal deficits. Alert and oriented x3. PSYCH: Normal mood and affect. Course Vital Signs Vital signs: Vital Signs Temperature 97.0 F L 05/05/22 06:45 Pulse Rate 106 H 05/05/22 06:45 Respiratory Rate 20 05/05/22 06:45 Pulse Oximetry 98 05/05/22 06:45 Oxygen Delivery Room Air 05/05/22 06:45 Temperature 97.0 F L 05/05/22 06:45 Pulse Rate 89 05/05/22 08:44 Respiratory Rate 16 05/05/22 08:44 Blood Pressure 142/84 H 05/05/22 08:44 Pulse Oximetry 97 05/05/22 08:44 Oxygen Delivery Room Air 05/05/22 06:45 MDM - Extremity (Nontraumatic) MDM Narrative Medical decision making narrative: Patient is a 37-year-old female presenting with left leg pain and swelling. Vitals within normal limits. Exam remarkable for the above. Plan for IM Toradol, ultrasound of the left leg. Do not feel that an x-ray is warranted given the lack of injury and reassuring exam. Doppler of the left lower extremity shows no DVT. There is evidence of a small Perez's cyst. This is likely the cause of her symptoms. Discussed the findings and advised close PCP follow-up. Recommended Tylenol and ibuprofen for pain control. Appropriate return precautions given. Patient voiced understanding and is agreeable with plan. Discharged in stable condition. Critical Care Time Critical Care Time Critical Care Time: No Discharge Plan Discharge Clinical Impression: Perez's cyst Patient Disposition: Home, Self-Care Condition: Stable Instructions: Antibiotic Form, Perez Cyst (ED) Additional Instructions:
[2022-05-05] MEDS: KETOROLAC 30 MG/ML VIAL (*BKC) IM (07:49)
[2022-05-05 08:44] VITALS: BP 142/84; PULSE 89; RESP 16; O2SAT 97
== END 2022-05-05 08:45 | disposition home or self-care (01) ==
PROVIDERS: Emergency Provider Emergency Medicine; PCP Family Medicine
DX: M71.22 Synovial cyst of popliteal space [Baker], left knee (principal); I10 Essential (primary) hypertension; F32.A Depression, unspecified
CPT/HCPCS: 93971; 96372; 99284; J1885

== ENCOUNTER 2023-01-20 02:20 | Emergency (ER) | payer SELFPAY ==
[2023-01-20] VITALS (10 sets, daily range): BP systolic 121–156; BP diastolic 70–94; PULSE 55–70; RESP 14–20; TEMP 36.3; O2SAT 94–100
--- NOTE | ~2023-01-20 | US_ITS ---
Pelvic ultrasound. Clinical History: Left adnexal pain Technique: Realtime transabdominal and transvaginal scanning of the pelvis was performed. Color flow Doppler and Doppler spectral analysis were performed. Findings: The uterus is retroverted.. The endometrial stripe has a thickness of 14 mm. No focal mass is identified. Tiny amount of fluid present in the endometrial cavity. The right ovary measures 4.8 x 4.2 x 4.1 cm. There is a 3.8 cm mildly complex right ovarian cyst, sug gestive of resolving hemorrhagic cyst. The left ovary measures 3.3 x 1.7 x 1.9 cm. No significant left ovarian or adnexal mass is seen. Vascular flow present in both ovaries on Doppler spectral analysis. There is trace free fluid in the cul de sac. Impression: No evidence for torsion. 3.8 cm mildly complex right ovarian cyst, likely resolving hemorrhagic cyst. Reviewed, dictated and finalized at [facility]. [place] [employer] WORK[employer] Impression: No evidence for torsion. 3.8 cm mildly complex right ovarian cyst, likely resolving hemorrhagic cyst.
--- NOTE | ~2023-01-20 | CT_ITS ---
CT of the Abdomen and Pelvis: Indication: Abdominal pain Technique: 2.5 mm axial scans were obtained through the abdomen and pelvis following intravenous adm inistration of 100 cc of Omnipaque 350. Dose reduction technique was used on this scan by utilizing a utomated exposure control and iterative reconstruction technique. The dose-length product (DLP) was 1 757.87 mGy-cm. COMPARISON: 06/22/2021 Findings: Scans through the lung bases demonstrates stable 3 mm left lower lobe pulmonary nodule. The liver, spleen, pancreas, left adrenal gland, and kidneys are within normal limits. Cholecystectom y clips are present. Stable 1.1 cm right adrenal nodule present. No evidence of aortic aneurysm. No lymphadenopathy. No bowel obstruction or bowel wall thickening. There is no evidence to suggest acute appendicitis. Images through the pelvis were performed. Urinary bladder unremarkable. 3.5 cm right ovarian cyst pre sent. No other adnexal mass seen. No ascites. Impression: 3.5 cm right ovarian cyst. 1.1 cm right adrenal nodule is indeterminate, but stable since 06/22/2021, therefore most likely benig n. Reviewed, dictated and finalized at [facility]. INE IR[employer]ER Impression: 3.5 cm right ovarian cyst. 1.1 cm right adrenal nodule is indeterminate, but stable since 06/22/2021, there fore most likely benign.
[2023-01-20] MEDS: ONDANSETRON INJ 4 MG/2 ML VIAL IV PUSH ×2 (03:18→05:19)
[2023-01-20] MEDS: SODIUM CHLORIDE 0.9% IV 1,000 ML 999 ML IV CONT (03:18)
[2023-01-20] MEDS: MORPHINE SULFATE (*CRX) 4 MG/ML INJ IV PUSH (03:18)
[2023-01-20 03:34] LABS: Basophils Absolute Auto 0.1 K/mm3 (0.0-0.1); Basophils Percent Auto 0.7 % (0.2-1.2); Eosinophils Absolute Auto 0.5 K/mm3 (0-0.3); Eosinophils Percent Auto 3.4 % (0-4.4); Hematocrit 41.5 % (37.0-47.0); Hemoglobin 12.7 g/dL (12.0-15.0); Immature Granulocyte Absolute 0.06 K/mm3 (0.00-0.031); Immature Granulocyte Percent A 0.4 % (0-0.5); Lymphocytes Absolute Auto 3.83 K/mm3 (0.9-3.2); Lymphocytes Percent Auto 25.7 % (18.3-44.2); Mean Corpuscular HGB Conc 30.6 g/dl (32-36); Mean Corpuscular Volume 75.2 fl (80-100); Monocytes Absolute Auto 1.1 K/mm3 (0.1-0.6); Monocytes Percent Auto 7.6 % (2.6-8.5); Neutrophils Absolute Auto 9.3 K/mm3 (1.3-6.7); Neutrophils Percent Auto 62.2 % (45.5-73.1); Platelet Count Result 495 k/mm3 (150-375); Red Blood Count 5.52 M/mm3 (4.2-5.4); Red Cell Distribution Width 17.3 % (11.5-14.5); White Blood Count 14.9 K/mm3 (4.5-10.0)
[2023-01-20 03:35] LABS: Appearance Urine Clear (Clear); Bilirubin Urine Negative (Negative); Blood Urine Negative (Negative); Color Urine Yellow (Yellow); Glucose Urine UA Negative (Negative); Ketones Urine Negative (Negative); Leukocyte Esterase Ur Negative LEU/UL (Negative); Nitrate Urine Negative (Negative); Protein Urine Negative (Negative); Specific Grav Ur 1.003 (1.001-1.035); Urobilinogen Urine 0.2 mg/dL (<2.0)
[2023-01-20 03:46] LABS: Add Urine Microscopic? NO
[2023-01-20 03:48] LABS: Potassium 3.9 mmol/L (3.4-5.0)
[2023-01-20 04:02] LABS: Alanine Aminotransferase 26 U/L (6-35); Albumin Level 4.4 g/dL (3.5-5.1); Alkaline Phosphatase 130 U/L (38-126); Anion Gap 10 mmol/L (8-16); Aspartate Amino Transferase 26 U/L (14-36); Bilirubin,Total 0.4 mg/dL (0.2-1.3); Blood Urea Nitrogen 9 mg/dL (7-17); Calcium 9.7 mg/dL (8.4-10.2); Carbon Dioxide 22 mmol/L (22-30); Chloride 108 mmol/L (98-107); Estimated CRCL calculation 176 ml/min; Estimated Glomerular Filt Rate > 60; Glucose 105 mg/dL (65-110); Lipase 96 U/L (23-300); Sodium 140 mmol/L (137-145)
--- NOTE | 2023-01-20 04:55 | PC.NURSE ---
Pt reports pain improved, but nausea continues. Dr Cobb notified and orders received.
--- NOTE | 2023-01-20 05:06 | ED.ABDPAIN ---
HPI - Abdominal Pain General Chief Complaint: Abdominal Pain Stated Complaint: Abdominal pain, vomiting Time Seen by Provider: 01/20/23 02:46 History of Present Illness HPI narrative: patient is a 38-year-old female who presents ER with left lower quadrant abdominal pain. Worsening over last 2 days. Initially started after having intercourse with her boyfriend. She had severe pain when trying a bowel movement this evening prior to coming in. Pain is worse with movements. Has history of ovarian cyst but also diverticulitis. No diarrhea. No fevers or chills or sweats. Denies urinary frequency urgency or dysuria. She is without vaginal discharge or vaginal bleeding. Related Data Home Medications Medication Instructions Recorded Confirmed gabapentin 600 mg tablet 300 mg PO DIRECTED 01/26/22 01/26/22 Allergies Allergy/AdvReac Type Severity Reaction Status Date / Time Penicillins Allergy Unknown HIVES Verified 01/20/23 03:28 cheese Allergy Rash Verified 01/20/23 03:28 Review of Systems Review of Systems: All systems reviewed & are unremarkable except as noted in HPI and below Constitutional: Constitutional: Reports no additional constitutional complaints ENT: Reports system reviewed and no additional complaints, except as documented Cardiovascular: Cardiovascular: Reports no additional cardiovascular complaints Respiratory: Respiratory: Reports no additional respiratory complaints Gastrointestinal: Gastrointestinal: Reports abdominal pain, Denies diarrhea, Denies nausea and Denies vomiting Genitourinary: Genitourinary: Denies abnormal vaginal bleeding, Denies hematuria, Denies nocturia, Denies dysuria, Reports pelvic pain and Denies vaginal discharge PMFSH Past Medical History Medical History History of depression History of hypertension Surgical History Surgical History History of cholecystectomy History of hernia repair Social History Social History Smoking status: Never smoker Exam Narrative: GENERAL: Well-appearing, Morbidly obese, and in no acute distress. HEAD: Normocephalic, atraumatic. ENT: Nares clear, no rhinorrhea or epistaxis. Mucous membranes moist. NECK: Supple. CHEST: Clear to auscultation. No respiratory distress. HEART: Regular rate and rhythm. Normal peripheral pulses. ABDOMEN: Soft, tender palpation left lower quadrant and suprapubic region with guarding. extremities: Normal range of motion. No edema. SKIN: Warm, dry, no rash. NEURO: Alert and oriented x3. PSYCH: Normal mood and affect. Course Course Emergency Course: patient resting comfortably. Informed of lab results and imaging reports. Patient felt appropriate for discharge home with pain control follow up with Gynecology. Vital Signs Vital signs: Vital Signs Temperature 97.3 F L 01/20/23 02:22 Pulse Rate 70 01/20/23 02:22 Respiratory Rate 20 01/20/23 02:22 Blood Pressure 156/94 H 01/20/23 02:22 Pulse Oximetry 100 01/20/23 02:22 Oxygen Delivery Room Air 01/20/23 02:22 Temperature 97.3 F L 01/20/23 02:22 Pulse Rate 61 01/20/23 06:21 Respiratory Rate 14 01/20/23 06:21 Blood Pressure 123/79 01/20/23 06:21 Pulse Oximetry 97 01/20/23 06:21 Oxygen Delivery Room Air 01/20/23 02:22 MDM - Abdominal Pain Lab Data 01/20/23 03:24 01/20/23 03:24 Labs: Lab Results 01/20/23 01/20/23 Range/Units 03:17 03:24 WBC 14.9 H (4.5-10.0) K/mm3 RBC 5.52 H (4.2-5.4) M/mm3 Hgb 12.7 (12.0-15.0) g/dL Hct 41.5 (37.0-47.0) % MCV 75.2 L (80-100) fl MCH 23.0 L (26-34) pg MCHC 30.6 L (32-36) g/dl RDW 17.3 H (11.5-14.5) % Plt Count 495 H (150-375) k/mm3 MPV 10.0 (7.4-10.4) fl Immature Gran % (Auto) 0.4 (0-0.5) % Neut % (Auto)
== END 2023-01-20 06:57 | disposition home or self-care (01) ==
PROVIDERS: Emergency Provider Emergency Medicine; PCP Family Medicine
DX: N83.201 Unspecified ovarian cyst, right side (principal); Z90.49 Acquired absence of other specified parts of digestive tract
CPT/HCPCS: 36415; 74177; 76830; 76856; 80053; 81003; 81025; 83690; 85025; 96361; 96374; 96375; 96376; 99284; J2270; J2405; J7030; Q9967

== ENCOUNTER 2023-01-30 20:11 | Emergency (ER) | payer SELFPAY ==
[2023-01-30 20:12] VITALS: BP 156/108; PULSE 72; RESP 18; TEMP 36.4; O2SAT 100
== END 2023-01-30 21:20 | disposition left against medical advice (07) ==
PROVIDERS: PCP Family Medicine
DX: M25.512 Pain in left shoulder (principal)
CPT/HCPCS: 99199

== ENCOUNTER 2023-01-31 11:10 | Emergency (ER) | payer OTHER, SELFPAY ==
--- NOTE | ~2023-01-31 | XR_ITS ---
EXAMINATION: XR chest 1V INDICATION: Chest pain TECHNIQUE: PA view of the chest is obtained. COMPARISON: 02/27/2022 FINDINGS: The lungs are free of acute opacities. No pleural effusion or pneumothorax. The cardiomedia stinal silhouette is normal. IMPRESSION: 1. No acute cardiopulmonary abnormality. Reviewed, dictated and finalized at location L. GER LINE
--- NOTE | ~2023-01-31 | XR_ITS ---
EXAMINATION: XR shoulder LT min 2V INDICATION: Left shoulder pain TECHNIQUE: Four views of the left shoulder are submitted. COMPARISON: None FINDINGS: Normal alignment. No fracture. There is mild osteoarthritis of the glenohumeral and acromio clavicular joints. Soft tissues are unremarkable. IMPRESSION: 1. Mild osteoarthritis without acute osseous abnormality. Reviewed, dictated and finalized at location L. SAFETY MANAGER
[2023-01-31 11:11] VITALS: BP 153/94; PULSE 79; RESP 20; TEMP 36.4; O2SAT 99
[2023-01-31 12:46] VITALS: BP 168/107; PULSE 79; RESP 18; O2SAT 98
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
[2023-01-31] MEDS: diazePAM (*CRX) 5 MG TABLET PO (13:54)
[2023-01-31] MEDS: KETOROLAC 30 MG/ML VIAL (*BKC) 15 MG IM (13:54)
[2023-01-31 14:04] VITALS: BP 166/98; PULSE 62; RESP 19; TEMP 36.3; O2SAT 100
[2023-01-31 14:30] VITALS: BP 154/101; PULSE 66; RESP 17; O2SAT 100
== END 2023-01-31 14:54 | disposition home or self-care (01) ==
PROVIDERS: Emergency Provider Student in an Organized Health Care Education/Training Program; PCP Family Medicine
DX: S13.4XXA Sprain of ligaments of cervical spine, initial encounter (principal); M62.830 Muscle spasm of back; M54.2 Cervicalgia; F32.A Depression, unspecified; I10 Essential (primary) hypertension; V43.52XA Car driver injured in collision with other type car in traffic accident, initial encounter
CPT/HCPCS: 71045; 73030; 81025; 96372; 99284; A9270; J1885

== ENCOUNTER 2023-05-31 15:23 | Emergency (ER) | payer BC, SELFPAY ==
[2023-05-31 15:27] VITALS: BP 170/96; PULSE 102; RESP 16; TEMP 36.4; O2SAT 98
[2023-05-31] MEDS: dexAMETHasone SOD PHOS INJ 10 MG/ML 1 ML VIAL IM (15:37)
[2023-05-31 15:41] VITALS: O2SAT 100
--- NOTE | 2023-05-31 15:45 | ED.ALLEREA ---
HPI - Allergic Reaction General Chief complaint: Allergic Reaction Stated complaint: allergic reaction Time Seen by Provider: 05/31/23 15:30 Source: patient Mode of arrival: ambulatory Limitations: no limitations History of Present Illness HPI narrative: Ele is a 38-year-old female patient presenting to the emergency room today with complaints of possible allergic reaction. Reports that she is currently taking clindamycin, has just finished up taking Tylenol with codeine and Vicodin. States that the rash and itching began yesterday. Denies any new environmental changes, soaps, detergents, lotions, or foods. Related Data Home Medications Medication Instructions Recorded Confirmed gabapentin 600 mg tablet 300 mg PO DIRECTED 01/26/22 01/26/22 Allergies Allergy/AdvReac Type Severity Reaction Status Date / Time Penicillins Allergy Unknown HIVES Verified 05/31/23 15:30 cheese Allergy Rash Verified 05/31/23 15:30 Review of Systems Review of Systems: Pertinent positives per HPI. Patient denies any fever, chills, headache, visual changes, dizziness, cough, runny nose, sore throat, shortness of breath, chest pain, palpitations, nausea, vomiting, diarrhea, constipation, abdominal pain, or any urinary issues. [facility] Past Medical History Medical History History of depression History of hypertension Surgical History Surgical History History of cholecystectomy History of hernia repair Social History Social History Smoking status: Never smoker Comments At the time of my signature, I reviewed and agree with the nursing past medical, surgical, social, and family history. There is no relevant family history pertinent to the patient complaint. Exam Narrative: General: Well-developed, morbidly obese, in no apparent distress Head: Normocephalic, atraumatic Eyes: Pupils equally round and reactive to light bilaterally, EOM intact, sclera and conjunctive clear, no discharge, lids normal Ears: TMs intact and clear, ear canals clear, no drainage, grossly hearing normal. Nose: Nares patent, no discharge, no inflammation, no sinus tenderness. Mouth: Oropharynx without lesions or masses, good dentition, MMM. Neck: Supple, trachea midline, no enlargement of anterior or posterior cervical nodes, no thyroid masses or goiter palpable. Cardio: Regular rate and rhythm, s1 and s2 normal, no murmur appreciated. Resp: Clear to auscultation bilaterally anteriorly and posteriorly, no rhonchi, rales, wheezing or rubs Integumentary: [place], warm, and dry, intact without lesion, itchy, blanchable, red, raised papular rash to arms, face, neck, chest, trunk, and legs. Course Course Emergency Course: Portions of this record may have been created with voice recognition software. Vital Signs Vital signs: Vital Signs Temperature 36.4 C 05/31/23 15:27 Pulse Rate 102 H 05/31/23 15:27 Respiratory Rate 16 05/31/23 15:27 Blood Pressure 170/96 H 05/31/23 15:27 Pulse Oximetry 98 05/31/23 15:27 Oxygen Delivery Room Air 05/31/23 15:27 Temperature 36.4 C 05/31/23 15:27 Pulse Rate 102 H 05/31/23 15:27 Respiratory Rate 16 05/31/23 15:27 Blood Pressure 170/96 H 05/31/23 15:27 Pulse Oximetry 100 05/31/23 15:41 Oxygen Delivery Room Air 05/31/23 15:41 Vital signs reviewed MDM - Allergic Reaction MDM Narrative Medical decision making narrative: At the time of visit patient is resting comfortably on the exam table. Patient appears to be nontoxic. Medications: Dexamethasone 10 mg IM Plan: I suspect patient may be having a allergic drug reaction to either clindamycin or the pain medication she was taking. She is finished taking these medications. Decadron 10 mg IM given in the clinic today. Will send in prescription
[2023-05-31 16:11] VITALS: BP 151/90; PULSE 89; RESP 16; TEMP 36.8; O2SAT 100
== END 2023-05-31 16:12 | disposition home or self-care (01) ==
PROVIDERS: Emergency Provider Nurse Practitioner Family; PCP Family Medicine
DX: T78.40XA Allergy, unspecified, initial encounter (principal); R21 Rash and other nonspecific skin eruption; I10 Essential (primary) hypertension; Z90.49 Acquired absence of other specified parts of digestive tract; X58.XXXA Exposure to other specified factors, initial encounter
CPT/HCPCS: 96372; 99283; J1100

== ENCOUNTER 2024-01-02 19:11 | Emergency (ER) | payer BC, SELFPAY ==
[2024-01-02 19:14] VITALS: BP 144/111; PULSE 109; RESP 22; TEMP 36.8; O2SAT 99
--- NOTE | 2024-01-02 19:28 | ED_ITS ---
HPI - Skin/Abscess/Foreign Bdy General Chief complaint: Skin/Abscess/Foreign Body Stated complaint: abscess on L. thigh Time Seen by Provider: 01/02/24 19:18 History of Present Illness HPI narrative: 38-year-old female with history of hypertension presents to emergency department with complaints of an abscess to her left upper thigh for 2 days. Patient states she woke up with an abscess 2 days ago the area has been getting larger and more painful with time. She denies fever. Reports nausea but no vomiting. Related Data Home Medications Medication Instructions Recorded Confirmed gabapentin 600 mg tablet 300 mg PO DIRECTED 01/26/22 01/26/22 Allergies Allergy/AdvReac Type Severity Reaction Status Date / Time Penicillins Allergy Unknown HIVES Verified 01/02/24 19:12 cheese Allergy Rash Verified 01/02/24 19:12 Review of Systems Review of Systems: All systems reviewed & are unremarkable except as noted in HPI and below PMFSH Past Medical History Medical History History of depression History of hypertension Surgical History Surgical History History of cholecystectomy History of hernia repair Social History Social History Smoking status: Never smoker Exam Narrative: GENERAL: Well-appearing, well-nourished, and in no acute distress. HEAD: Normocephalic, atraumatic. EYES: EOMI. ENT: Nares clear, no rhinorrhea or epistaxis. Mucous membranes moist. NECK: Supple. CHEST: Clear to auscultation. No respiratory distress. HEART: Regular rate and rhythm. No murmur heard. Normal peripheral pulses. EXTREMITIES: Normal range of motion. No edema. SKIN: 2 cm palpable abscess to the left upper medial aspect of the thigh with fluctuation. minimal overlying erythema. Area is tender to palpation. No induration, no crepitus. No spontaneous drainage. NEURO: No focal deficits. Alert and oriented x3 Course Vital Signs Vital signs: Vital Signs Temperature 98.2 F 01/02/24 19:14 Pulse Rate 109 H 01/02/24 19:14 Respiratory Rate 22 H 01/02/24 19:14 Blood Pressure 144/111 H 01/02/24 19:14 Pulse Oximetry 99 01/02/24 19:14 Oxygen Delivery Room Air 01/02/24 19:14 Temperature 98.2 F 01/02/24 19:14 Pulse Rate 87 01/02/24 21:11 Respiratory Rate 16 01/02/24 21:11 Blood Pressure 142/80 H 01/02/24 21:11 Pulse Oximetry 100 01/02/24 21:11 Oxygen Delivery Room Air 01/02/24 19:14 Procedures Abscess I/D lower extremity: Date of Incision: 01/02/24 Time of Incision: 22:00 Side (if applicable): right Local Anesthetic: lidocaine 1% and with epi Amount of anesthesia used (mL): 6 Technique: incised with #11 blade Amount of fluid expressed (mL): 4 Packing used?: none I&D Results: Pus MDM - Skin/Abscess/Foreign Bdy MDM Narrative Medical decision making narrative: 38-year-old female presents emergency department for an abscess to the left upper medial aspect of the thigh for 2 days. Triage vitals with hypertension of 144/111, tachycardia 109 and tachypnea of 22. She does appear anxious, will recheck vitals later in the visit. She is afebrile. Exam is significant for the above. Local anesthetic applied and abscess I&D with 5 cc of purulence e xpressed. No complications. Patient was started on Bactrim (denies possibility of ) and advised to follow-up with her PCP. Vitals normalized. Discussed strict ED return precautions. She is agreeable with the plan verbalized understanding. Discharged in stable condition. Discharge Plan Discharge Clinical Impression: Abscess Patient Disposition: Home, Self-Care Condition: Stable Instructions: Antibiotic Form, Abscess (ED) Additional Instructions: You were evaluated in the emergency department for an abscess. We were able to drain pus out of it. Please take antibiotics as directed and follow-up with her primary care provider. Return to the emergency department if you develop worsening abscess, redness, fever, or other concerning symptoms. Prescriptions: New sulfamethoxazole-trimethoprim 800-160 mg tablet 1 tablet PO Q12H Qty: 14 0RF No Action gabapentin 600 mg tablet 300 mg PO DIRECTED pseudoephedrine HCl [12 Hour Decongestant] 120 mg tablet extended release 120 mg PO Q12H PRN (Reason: nasal congestion) Qty: 12 0RF fluticasone propionate [Flonase Allergy Relief] 50 mcg/actuation spray,suspension 2 spray NASAL DAILY 14 Days Qty: 15.8 0RF Rx Instructions: administer into each nostril naproxen 375 mg tablet 375 mg PO BID Qty: 14 0RF hydrocodone-acetaminophen 5-325 mg tablet 1 tablet PO Q6H PRN (Reason: pain) Qty: 12 0RF cyclobenzaprine 5 mg tablet 5 mg PO TID PRN (Reason: muscle spasm) Qty: 30 0RF acetaminophen 500 mg tablet 500 mg PO Q6H PRN (Reason: pain) Qty: 30 0RF ibuprofen 400 mg tablet 400 mg PO Q6H PRN (Reason: pain) Qty: 30 0RF prednisone 10 mg tablet 10 mg PO DAILY Qty: 30 0RF Rx Instructions: 60mg po daily on day 1, 40mg po daily on days 2-4, 30mg po daily on days 5-6, 20mg po daily on days 7-8, 10mg po daily on days 9-10 famotidine [Pepcid] 40 mg tablet 40 mg PO DAILY 10 Days Qty: 10 0RF Follow-up/Referrals: Jesus,Mesfin Shanks MD [Primary Care Provider] - Stand Alone Forms: Work/School Release IP
[2024-01-02] MEDS: SULFAMETHOXAZOLE/TRIMETHOPRIM 800/160 MG DS TABLET 1 TAB PO (21:06)
[2024-01-02 21:11] VITALS: BP 142/80; PULSE 87; RESP 16; O2SAT 100
== END 2024-01-02 21:12 | disposition home or self-care (01) ==
PROVIDERS: Emergency Provider Physician Assistant; PCP Family Medicine
DX: L02.416 Cutaneous abscess of left lower limb (principal); I10 Essential (primary) hypertension; Z90.49 Acquired absence of other specified parts of digestive tract
CPT/HCPCS: 10060; 99283; A9270

== ENCOUNTER 2024-02-11 12:52 | Emergency (ER) | payer BC, OTHER, SELFPAY ==
--- NOTE | ~2024-02-11 | XR_ITS ---
HISTORY: fall, L arm injury COMPARISON: None TECHNIQUE: 2 views of the left forearm were performed FINDINGS: No acute fracture is identified. No elevation of the anterior or posterior fat pads are identified to suggest a supracondylar fracture . Overlying soft tissues are unremarkable. Bone mineralization is age-appropriate. IMPRESSION: No acute fracture, as detailed above Reviewed, dictated and finalized at location A. CAL FRONT DESK COORDINATOR
--- NOTE | ~2024-02-11 | CT_ITS ---
History: Fall with lower back pain PROCEDURE: CT lumbar spine without intravenous contrast. COMPARISON: None TECHNIQUE: Multiple contiguous axial images of the lumbar spine were performed without the administration of int ravenous contrast. DLP: 1269 mGy-cm FINDINGS: Straightening of the normal lordotic curvature of the lumbar spine is identified, possibly muscular i n origin. No acute compression fractures are present. No soft tissue abnormality is noted. Degenerative disease is identified at the levels of L4/L5 and L5/S1 with osteophyte formation and dis c space narrowing. Impression: Straightening of the normal lordotic curvature of the lumbar spine, likely muscular in origin. No acute compression fracture. Reviewed, dictated and finalized at location A. ENER HELPER Impression: Straightening of the normal lordotic curvature of the lumbar spine, likely musc ular in origin. No acute compression fracture.
[2024-02-11 13:00] VITALS: BP 138/84; PULSE 80; RESP 16; TEMP 36.6; O2SAT 96
--- NOTE | 2024-02-11 14:34 | ED.FALL ---
HPI - Fall General Chief Complaint: Fall Stated Complaint: slip and fall at work, low back and LUE pain Time Seen by Provider: 02/11/24 14:02 Source: patient Mode of arrival: ambulatory Limitations: no limitations History of Present Illness HPI Narrative: This is a 39-year-old female who presents to the ED for chief complaint of a fall at work today. States that she slipped and fell onto her back. Reports left forearm pain and lumbar spine pain. Denies any further sites of pain or injury. Denies LOC. Does not take any blood thinners. Denies numbness or weakness. Denies bowel or bladder dysfunction Related Data Home Medications ?Medication ?Instructions ?Recorded ?Confirmed ?Last Taken ?Type gabapentin 600 mg tablet 300 mg PO DIRECTED 01/26/22 01/26/22 Unknown History Allergies Allergy/AdvReac Type Severity Reaction Status Date / Time Penicillins Allergy Unknown HIVES Verified 02/11/24 12:53 cheese Allergy Rash Verified 02/11/24 12:53 Review of Systems Review of Systems: All systems as dictated in [facility] Past Medical History Medical History History of depression History of hypertension Surgical History Surgical History History of cholecystectomy History of hernia repair Social History Social History Smoking status: Never smoker Exam Narrative: GENERAL: Well-appearing, well-nourished, and in no acute distress. HEAD: Normocephalic, atraumatic. EYES: PERRLA and EOMI. ENT: Nares clear, no rhinorrhea or epistaxis. Mucous membranes moist. Oropharynx without tonsillar hypertrophy exudate or other lesions. NECK: Supple. No adenopathy or masses. CHEST: No respiratory distress. Clear to auscultation. No wheezes rales or rhonchi HEART: Regular rate and rhythm. No murmur heard. Normal peripheral pulses. ABDOMEN: Soft, nontender, nondistended, normal active bowel sounds. MSK: Normal range of motion. No edema. Ambulatory without assistance. Mild tenderness to the lumbar spine. SKIN: Warm, dry, no rash. NEURO: Alert and oriented x4. No focal deficits. 5/5 strength and sensation in the upper and lower extremities. PSYCH: Normal mood and affect. Course Vital Signs Vital signs: Vital Signs Temperature 97.9 F 02/11/24 13:00 Pulse Rate 80 02/11/24 13:00 Respiratory Rate 16 02/11/24 13:00 Blood Pressure 138/84 02/11/24 13:00 Pulse Oximetry 96 02/11/24 13:00 Temperature 98.1 F 02/11/24 17:58 Pulse Rate 68 02/11/24 17:58 Respiratory Rate 14 02/11/24 17:58 Blood Pressure 129/83 02/11/24 17:58 Pulse Oximetry 100 02/11/24 17:58 MDM - Fall MDM Narrative Medical decision making narrative: This is a 39-year-old female who presents to ED for chief complaint of back injury and left arm injury that occurred at work. Vitals are normal. Exam remarkable for the above. Imaging of the left forearm and lumbar spine are negative for acute osseous findings. Patient was given Toradol injection here. Patient will be discharged in stable condition. Supportive measures discussed and return precautions given. Patient is understanding and agreeable with plan for discharge with PCP follow-up. Lab Data Labs: Lab Results 02/11/24 Range/Units 15:09 POC Urine HCG, Qual Negative (Negative) Discharge Plan Discharge Clinical Impression: Fall Patient Disposition: Home, Self-Care Condition: Stable Instructions: Antibiotic Form Additional Instructions: Your evaluated today for a fall. Your exam and imaging today are reassuring. Please take Tylenol 500 mg and ibuprofen 600 mg every 6 hours as needed for pain control. Follow-up with PCP on this issue If you have any new or worsening symptoms please return to the ER for further evaluation. Patient Language: Setswana Prescriptions: No Action gabapentin 600 mg tablet 300 mg PO DIRECTED pseudoephedrine HCl [12 Hour Decongestant] 120 mg tablet extended release 120 mg PO Q12H PRN (Reason: nasal congestion) Qty: 12 0RF fluticasone propionate [Flonase Allergy Relief] 50 mcg/actuation spray,suspension 2 spray NASAL DAILY 14 Days Qty: 15.8 0RF Rx Instructions: administer into each nostril sulfamethoxazole-trimethoprim 800-160 mg tablet 1 tablet PO Q12H Qty: 14 0RF naproxen 375 mg tablet 375 mg PO BID Qty: 14 0RF hydrocodone-acetaminophen 5-325 mg tablet 1 tablet PO Q6H PRN (Reason: pain) Qty: 12 0RF cyclobenzaprine 5 mg tablet 5 mg PO TID PRN (Reason: muscle spasm) Qty: 30 0RF acetaminophen 500 mg tablet 500 mg PO Q6H PRN (Reason: pain) Qty: 30 0RF ibuprofen 400 mg tablet 400 mg PO Q6H PRN (Reason: pain) Qty: 30 0RF prednisone 10 mg tablet 10 mg PO DAILY Qty: 30 0RF Rx Instructions: 60mg po daily on day 1, 40mg po daily on days 2-4, 30mg po daily on days 5-6, 20mg po daily on days 7-8, 10mg po daily on days 9-10 famotidine [Pepcid] 40 mg tablet 40 mg PO DAILY 10 Days Qty: 10 0RF Follow-up/Referrals: Jesus,Mesfin Shanks MD [Primary Care Provider] - Time of Disposition: 17:35
[2024-02-11] MEDS: KETOROLAC 30 MG/ML VIAL (*BKC) IM (15:08)
[2024-02-11 15:12] LABS: BEDSIDEPREGUCG Negative (Negative)
[2024-02-11 17:58] VITALS: BP 129/83; PULSE 68; RESP 14; TEMP 36.7; O2SAT 100
--- OUTSIDE RECORDS SUMMARY | 2024-02-18 17:01 | XMS_ITS | Encounter Summary ---
Author Organization [facility] Address [address] [place] [address]. [place] [address] [place] [address] Care Team Providers Care Psychology Assistant Name Role Phone Mesfin Lee MD Primary Care Provider + [phone] , Generic Conversion Primary Care Provider Unavailable Md Generic Conversion Primary Care Provider Unavailable Encounter Details Date Type Department Care Team (Late st Contact Info) Description 05/05/2015 Emergency [facility] Emergency Room [address] [place], [place] [id number] Charly Costello N, DO [address] [facility] [address] [place], [place] [id number] Social History Tobacco Use Types Packs/Day Years Used Date Smoking Tobacco: Never Assessed Comments Unknown Sex and Gender Information Value Date Recorded Sex Assigned at Not on file Legal Sex Female 7:08 PM CDT Gender Identity Not on file Sexual Orientation Not on file documented as of this encounter Plan of Treatment Not on file documented as of this encounter Procedures Procedure Name Priority Date/Time Associated Diagnosis Comments URINALYSIS WI REFLEX TO CULTURE STAT 05/05/2015 2:59 AM CDT COMPREHENSIVE METABOLIC PANEL STAT 05/05/2015 2:54 AM CDT CHORIONIC GONADOTROPIN HCG QL STAT 05/05/2015 2:54 AM CDT CBC W/DIFF AUTOMATED STAT 05/05/2015 2:54 AM CDT AMYLASE STAT 05/05/2015 2:54 AM CDT LIPASE STAT 05/05/2015 2:54 AM CDT documented in this encounter Results * URINALYSIS WI REFLEX TO CULTURE (05/05/2015 2:59 AM CDT) SOURCE (FLUID) URINE CLEAN CATCH 05/05/2015 2:44 AM CDT [facility] COLOR (U) STRAW 05/05/2015 3:19 AM CDT [facility] TRANSPARENCY CLEAR 05/05/2015 3:19 AM CDT [facility] SPECIFIC GRAVITY (U) 1.004 1.001 - 1.030 05/05/2015 3:19 AM CDT [facility] U PH 6.0 5.0 - 9.0 05/05/2015 3:19 AM CDT [facility] LEUKOCYTES (U) NEGATIVE NEGATIVE 05/05/2015 3:19 AM CDT [facility] NITRITES NEGATIVE NEGATIVE 05/05/2015 3:19 AM CDT [facility] PROTEIN (U) NEGATIVE <30 MG/DL 05/05/2015 3:19 AM T [facility] URINE GLUCOSE NEGATIVE NEGATIVE MG/DL 05/05/2015 3:19 AM CDT [facility] KETONES MG/DL (U) NEGATIVE NEGATIVE MG/DL 05/05/2015 3:19 AM CDT [facility] UROBILINOGEN NEGATIVE NEGATIVE MG/DL 05/05/2015 3:19 AM CDT [facility] BILIRUBIN (U) NEGATIVE NEGATIVE MG/DL 05/05/2015 3:19 AM CDT [facility] BLOOD (U) NEGATIVE NEGATIVE 05/05/2015 3:19 AM CDT [facility] CULTURE & SENSITIVITY INDICATED? CULTURE IS NOT INDICATED 05/05/2015 3:19 AM CDT [facility] SQUAMOUS EPITHELIALS FEW /LPF 05/05/2015 3:19 AM CDT [facility] WBC/HPF <1 <6 /HPF 05/05/2015 3:19 AM CDT [facility] RBC/HPF 1 <6 /HPF 05/05/2015 3:19 AM CDT [facility] 05/05/2015 2:59 AM CDT 05/05/2015 3:08 AM CDT us Generic Conversion Md GOMEZ URINE ORDERABLES Final Result Performing Organization Address [facility] Co de Phone Number [facility] [address] [place] [address], * CHORIONIC GONADOTROPINHCG QL (05/05/2015 2:54 AM CDT) PREG SCREEN-SERUM NEGATIVE 05/05/2015 3:34 AM CDT [facility] 05/05/2015 2:54 AM CDT 05/05/2015 3:33 AM CDT us Generic Conversion Md GOMEZ LABORATORY Final R esult Performing Organization Address City/[facility] Co de Phone Number [facility] [address] [place] [address], * LIPASE (05/05/2015 2:54 AM CDT) LIPASE 37 13 - 60 U/L 05/05/2015 3:21 AM CDT [facility] SERUM OR PLASMA SPECIMEN / Unknown 05/05/2015 2:54 AM CDT 05/05/2015 3:03 AM CDT us Generic Conversion Md GOMEZ LABORATORY Final R esult [facility] [address] [place] [address], [place] [phone] * (ABNORMAL) COMPREHENSIVE METABOLIC PANEL (05/05/2015 2:54 AM CDT) GLUCOSE 139(H) 70 - 99 mg/dL 05/05/2015 3:21 AM CDT [facility] BUN 9 8 - 23 mg/dL 05/05/2015 3:21 AM CDT [facility] CREATININE S/P/B 0.74 0.60 - 1.10 mg/dL 05/05/2015 3:21 AM CDT [facility] SODIUM S/P/B 136 136 - 145 mmol/L 05/05/2015 3:21 AM CDT [facility] POTASSIUM S/P/B 4.0 3.5 - 5.1 mmol/L 05/05/2015 3:21 AM CDT [facility] CHLORIDE S/P/B 99 98 - 107 mmol/L 05/05/2015 3:21 AM CDT [facility] CO2 25 22 - 29 mmol/L 05/05/2015 3:21 AM CDT [facility] BILIRUBIN TOTAL S/P/B <0.1(L) 0.2 - 1.2 mg/dL 05/05/2015 3:24 AM CDT [facility] CALCIUM S/P/B 9.4 8.6 - 10.2 mg/dL 05/05/2015 3:21 AM CDT [facility] ALKALINE PHOSPHATASE S/P/B 119(H) 35 - 104 IU/L 05/05/2015 3:21 AM CDT [facility] AST 18 0 - 32 IU/L 05/05/2015 3:21 AM CDT [facility] TOTAL PROTEIN S/P/B 7.8 6.4 - 8.3 g/dL 05/05/2015 3:21 AM CDT [facility] ALBUMIN S/P/B 4.1 3.5 - 5.2 g/dL 05/05/2015 3:21 AM CDT [facility] ALT 22 0 - 33 IU/L 05/05/2015 3:21 AM CDT [facility] GLOBULIN 3.7(H) 2.3 - 3.6 g/dL 05/05/2015 3:21 AM CDT [facility] A/G RATIO 1.1 1.0 - 2.0 05/05/2015 3:21 AM CDT [facility] ANION GAP 16 8 - 20 05/05/2015 3:21 AM CDT [facility] EGFR NON-AFR. AMER. >60 >60 mL/min/1.7 3m'2 05/05/2015 3:21 AM CDT [facility] EGFR AFR. AMER. >60 >60 mL/min/1.7 3m'2 05/05/2015 3:21 AM CDT [facility] Comment: NOTE: eGFR is not calculated for patients <18 years of age. This is an estimated GFR (CKD EPI) and should not be used for calculating drug doses. 05/05/2015 2:54 AM CDT 05/05/2015 3:03 AM CDT us Generic Conversion Md GOMEZ LABORATORY Final R esult [facility] [address] [place] [address], * (ABNORMAL) CBC W/DIFF AUTOMATED (05/05/2015 2:54 AM CDT) WBC 23.8(H) 4.8 - 10.8 X10'3/uL 05/05/2015 3:13 AM CDT [facility] RBC 5.60(H) 4.20 - 5.40 X10'6/uL 05/05/2015 3:13 AM T [facility] HGB 13.9 12.0 - 16.0 g/dL 05/05/2015 3:13 AM T [facility] HCT 44.0 38.0 - 48.0 % 05/05/2015 3:13 AM T [facility] MCV 78.6(L) 81.0 - 99.0 fL 05/05/2015 3:13 AM [facility] MCH 24.8(L) 27.0 - 31.0 pg 05/05/2015 3:13 AM [facility] MCHC 31.6(L) 32.0 - 36.0 g/dL 05/05/2015 3:13 AM [facility] RDW 18.0(H) 11.5 - 14.5 % 05/05/2015 3:13 AM [facility] PLT 396 130 - 400 X10'3/uL 05/05/2015 3:13 AM [facility] MPV 10.6 9.3 - 12.2 fL 05/05/2015 3:13 AM [facility] DIFFERENTIAL TYPE AUTOMATED 05/05/2015 3:13 AM T [facility] NEUTROPHILS % 68.7(H) 43.0 - 65.0 % 05/05/2015 3:13 AM [facility] LYMPHOCYTES % 17.0(L) 20.0 - 46.0 % 05/05/2015 3:13 AM [facility] MONOCYTES % 4.9(L) 5.0 - 12.0 % 05/05/2015 3:13 AM T [facility] EOSINOPHILS 8.4(H) 1.0 - 3.0 % 05/05/2015 3:13 AM CDT [facility] BASOPHILS 0.5 0.0 - 1.0 % 05/05/2015 3:13 AM CDT [facility] IMMATURE GRANS % 0.5 0.0 - 1.0 % 05/05/2015 3:13 AM CDT [facility] 05/05/2015 2:54 AM CDT 05/05/2015 3:03 AM CDT us Generic Conversion Md GOMEZ LABORATORY Final R esult Performing Organization Address City/[facility]/ZIP Co de Phone Number [facility] [address] [place] [address], [place] [phone] * AMYLASE (05/05/2015 2:54 AM CDT) AMYLASE S/P/B 50 28 - 100 U/L 05/05/2015 3:21 AM CDT [facility] SERUM OR PLASMA SPECIMEN / Unknown 05/05/2015 2:54 AM CDT 05/05/2015 3:03 AM CDT us Generic Conversion Md GOMEZ LABORATORY Final R esrosanne Performing Organization Address City/[facility]/ZIP Co de Phone Number [facility] [address] [place] [address], [place] [phone] documented in this encounter Visit Diagnoses Diagnosis Ovarian cyst Other and unspecified ovarian cyst documented in this encounter Care Teams Psychology Assistant Relationship Specialty Start Date End Date Mesfin Lee MD [address] [place] [address] PCP - General 03/20/16 Gemma Gomez MD PCP - General 10/06/15 7 Gemma Gomez MD PCP - General 05/05/15 documented as of this encounter
--- OUTSIDE RECORDS SUMMARY | 2024-02-18 17:01 | XMS_ITS | Encounter Summary ---
Author Organization [facility] Address [address] [place] [address]. [place] [address] [place] [address] Care Team Providers Care De Icer Name Role Phone Mesfin Lee MD Primary Care Provider [phone] Md Generic Linus GOMEZ Primary Care Provider Unavailable Gemma Gomez MD Primary Care Provider Unavailable Gemma Gomez MD Primary Care Provider Unavailable Encounter Details Date Type Department Care Team (Late st Contact Info) Description 06/29/2010 [place] [address] Gemma Gomez MD Social History Tobacco Use Types Packs/Day Years Used Date Smoking Tobacco: Never Assessed Comments Unknown Sex and Gender Information Value Date Recorded Sex Assigned at Not on file Legal Sex Female 7:08 PM CDT Gender Identity Not on file Sexual Orientation Not on file documented as of this encounter Plan of Treatment Not on file documented as of this encounter Visit Diagnoses Diagnosis Cervical incompetence, antepartum condition or complication ([facility]) Cervical incompetence, antepartum condition or complication documented in this encounter Care Teams De Icer Relationship Specialty Start Date End Date Mesfin Lee MD [address] [place] [address] PCP - General 03/20/16 Gemma Gomez MD PCP - General 10/06/15 7 Gemma Gomez MD PCP - General 05/05/15 Gemma Gomez MD PCP - General 09/02/11 documented as of this encounter
--- OUTSIDE RECORDS SUMMARY | 2024-02-18 17:01 | XMS_ITS | Encounter Summary ---
Author Organization [facility] Address [address] [place] [address]. [place] [address] [place] [address] Care Team Providers Care Miniature Set Constructor Name Role Phone Mesfin Lee MD Primary Care Provider [phone] Encounter Details Date Type Department Care Team (Late st Contact Info) Description 03/20/2016 Emergency [facility] Emergency Room [address] [place], [place] [id number] Tess Logan MD [address] [place], [place] [address] Social History Tobacco Use Types Packs/Day Years Used Date Smoking Tobacco: Never Assessed Comments Unknown Sex and Gender Information Value Date Recorded Sex Assigned at Not on file Legal Sex Female 7:08 PM CDT Gender Identity Not on file Sexual Orientation Not on file documented as of this encounter Plan of Treatment Not on file documented as of this encounter Visit Diagnoses Diagnosis Pain in ankle Pain in joint, ankle and foot documented in this encounter Care Teams Miniature Set Constructor Relationship Specialty Start Date End Date Mesfin Lee MD [address] [place], [place] [id number] PCP - General 03/20/16 documented as of this encounter
--- OUTSIDE RECORDS SUMMARY | 2024-02-18 17:01 | XMS_ITS | Encounter Summary ---
Author Organization [facility] Address [address] [place] [address]. 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
--- OUTSIDE RECORDS SUMMARY | 2024-02-18 17:01 | XMS_ITS | Encounter Summary ---
Author Organization [facility] Address [address] [place] [address]. [place] [address] [place] [address] Care Team Providers Care Rail Track Maintainer Name Role Phone Mesfin Lee MD Primary Care Provider [phone] Reason for Referral * Imaging (Emergency) - Closed Specialty Diagnoses / Procedures Referred By Marlo t Referred To Contact Procedures CT ABD+PEL W IV CON ONLY Stacia Mabry MD [address] [address] Phone: tel: fax: Referral ID Status Reason Start Date Expiration Date Visits Re quested Visits Authorized [id number] Closed 06/28/2017 07/29/2018 1 1 Reason for Visit * Reason Comments Abdominal Pain Encounter Details Date Type Department Care Team (Late st Contact Info) Description 06/28/2017 6:38 PM CDT - 06/29/2017 12:15 AM CDT Emergency [facility] Emergency [facility] [place] [address] Stacia Mabry MD [address] [phone] Abdominal Pain Discharge Disposition: Home or Self Care (Routine Discharge) Social History Tobacco Use Types Packs/Day Years Used Date Smoking Tobacco: Every Day Smokeless Tobacco: Current Comments:e cigarettes Alcohol Use Standard Drinks/Week Comments Yes 0 (1 standard drink = 0.6 oz pur e alcohol) social drinker Comments No Sex and Gender Information Value Date Recorded Sex Assigned at Not on file Legal Sex Female 7:08 PM CDT Gender Identity Not on file Sexual Orientation Not on file documented as of this encounter Last Filed Vital Signs Vital Sign Reading Time Taken Comments Blood Pressure 143/83 06/28/2017 11:56 PM CDT Pulse 63 06/28/2017 11:56 PM CDT Temperature 37.2 ??C (99 ??F) 06/28/2017 6:35 PM CDT Respiratory Rate 18 06/28/2017 11:56 PM CDT Oxygen Saturation 99% 06/28/2017 11:56 PM CDT Inhaled Oxygen Concentration - - Weight 118.4 kg (261 lb 2 oz) 06/28/2017 6:35 PM CDT Height 172.7 cm (5' 8 ) 06/28/2017 6:35 PM CDT Body Mass Index 39.7 06/28/2017 6:35 PM CDT documented in this encounter Discharge Instructions * Discharge Instructions* Stacia Mabry MD - 06/28/2017 11:26 PM CDT Images from the original note were not included. Patient Education Gastritis Discharge Instructions About this topic Gastritis is swelling in the lining of the stomach. Many things may cause gastritis. Sometimes, it is caused by an infection with a germ called H. pylori. Other times, it is caused by using nonsteroidal anti-inflammatory drugs called NSAIDs. These are things like ibuprofen (Advil, Motrin) or naproxen (Aleve, Naprosyn). Gastritis may be caused by alcohol. Sometimes, a serious infection or life-threatening illness is the cause. It may lead to ulcers and stomach cancer if not treated. What care is needed at home? ?? Ask your doctor what you need to do when you go home. Make sure you ask questions if you do not understand what the doctor says. This way you will know what you need to do. ?? Wash your hands often with soap and water for at least 15 seconds, especially after coughing or sneezing. Alcohol-based hand sanitizers also work to kill germs. ?? Take all your drugs as ordered by your doctor. Be sure to ask your doctor before you take any dsem-gxk-nwhnkbf (OTC) drugs or other alternative drugs or treatments. ?? Do not eat foods that bother your stomach. ?? Quit smoking. ?? Do not drink beer, wine, and mixed drinks (alcohol). ?? Eat small meals more often. ?? Learn how to handle stress. ?? If possible, avoid long-term use of aspirin and other anti-inflammatory drugs. What follow-up care is needed? Your doctor may ask you to make visits to the office to check on your progress. Be sure to keep these visits. What drugs may be needed? The doctor may order drugs to: ?? Fight an infection ?? Control how much acid your stomach makes ?? Help healing Will physical activity be limited? You may want to limit your activity if you have belly pain. Having an upset stomach or throwing up may also limit what you do. You may need more rest if you feel weak or tired. What problems could happen? ?? Stomach ulcer or bleeding ?? Stomach cancer When do I need to call the doctor? ?? Signs of infection. These include a fever of 100.4??F (38??C) or higher, chills. ?? Throwing up blood ?? Black stools or blood in your stools ?? Pain in the upper part of the belly ?? You are not feeling better in 2 to 3 days or you are feeling worse Teach Back: Helping You Understand The Teach Back Method helps you understand the information we are giving you. The idea is simple. After talking with the staff, tell them in your own words what you were just told. This helps to makesure the staff has covered each thing clearly. It also helps to explain things that may have been abit confusing. Before going home, make sure you are able to do these: ?? I can tell you about my condition. ?? I can tell you what changes I need to make with my diet or drugs. ?? I can tell you what I will do if I throw up blood or have bloody or black tarry stools. Where can I learn more? Kids Health http://kidshealth.org/en/parents/h-pylori.html National Digestive Diseases Information Clearinghouse http://digestive.niddk.nih.gov/ddiseases/pubs/gastritis/ Last Reviewed Date 2017-01-18 Consumer Information Use and Disclaimer This information is not specific medical advice and does not replace information you receive from your health care provider. This is only a brief summary of general information. It does NOT include all information about conditions, illnesses, injuries, tests, procedures, treatments, therapies, discharge instructions or life-style choices that may apply to you. You must talk with your health care provider for complete information about your health and treatment options. This information should not be used to decide whether or not to accept your health care provider???s advice, instructions or recommendations. Only your health care provider has the knowledge and training to provide advice that is right for you. Copyright Copyright ?? 2018 [employer]. and its affiliates and/or licensors. All rights reserved. documented in this encounter Medications at Time of Discharge ondansetron 4 MG disintegrating tablet Take 1 tablet (4 mg total) by mouth every 8 (eight) hours as needed for Nausea. 20 tablet 06/28/2017 famotidine 40 MG tablet Take 1 tablet (40 mg total) by mouth 2 (two) times daily. 60 tablet 06/28/2017 9 traMADol 50 MG tablet Take 1 tablet (50 mg total) by mouth every 6 (six) hours as needed for Pain. 20 tablet 06/28/2017 8 documented as of this encounter ED Notes * Stacia Mabry MD - 06/28/2017 9:56 PM CDT Chief Complaint Chief Complaint Patient presents with ??? Abdominal Pain History of Present Illness This patient is a 32yo WF with no pertinent PMH who presents with acute onset of epigastric pain ~5pm today. The pain is severe at times and constant. She denies chest pain, dyspnea, cough, fever/chills. She did have nausea/vomiting yesterday (nonbilious, nonbloody). No diarrhea, constipation, or lower GI bleeding. The patient is s/p cholecystectomy. Medical History ALLERGIES: Allergies Allergen Reactions ??? Penicillins Unknown MEDICATIONS: Prior to Admission medications Not on File PAST MEDICAL HISTORY: No past medical history on file. PAST SURGICAL HISTORY: No past surgical history on file. FAMILY HISTORY: No family history on file. SOCIAL HISTORY: Social History Substance Use Topics ??? Smoking status: Not on file ??? Smokeless tobacco: Not on file ??? Alcohol use Not on file Review of Systems Review of Systems Constitutional: Negative. HENT: Negative. Respiratory: Negative. Cardiovascular: Negative. Gastrointestinal: Positive for abdominal pain, nausea and vomiting. Negative for blood in stool, constipation and diarrhea. Genitourinary: Negative. Musculoskeletal: Negative. Neurological: Negative. All other systems reviewed and are negative. Physical Exam Filed Vitals: 06/28/17 1835 06/28/17200706/28/172128 BP: (!) 142/100 119/85 118/82 Pulse: 94 64 59 Resp: 18 18 20 Temp: 99 ??F (37.2 ??C) TempSrc: Temporal SpO2: 97% 100% 96% Weight: 118.4 kg (261 lb 2 oz) Height: 5' 8 (1.727 m) Physical Exam Constitutional: She is oriented to person, place, and time. She appears well- developed and well-nourished. HENT: Head: Normocephalic and atraumatic. Eyes: Conjunctivae are normal. Pupils are equal, round, and reactive to light. Neck: Normal range of motion. Neck supple. Cardiovascular: Normal rate, regular rhythm, normal heart sounds and intact distal pulses. Pulmonary/Chest: Effort normal and breath sounds normal. Abdominal: Soft. She exhibits no distension and no mass. There is tenderness. There is no rebound and no guarding. Mild epigastric tenderness. Musculoskeletal: Normal range of motion. Neurological: She is alert and oriented to person, place, and time. Skin: Skin is warm and dry. Nursing note and vitals reviewed. Diagnostic Studies / Procedures ELECTROCARDIOGRAMS: No results found for this visit on 06/28/17. LABORATORY STUDIES: Results for orders placed or performed during the hospital encounter of 06/28/17 CHORIONIC GONADOTROPIN HCG QL Result Value Ref Range PREG SCREEN-SERUM NEGATIVE CBC W/DIFF AUTOMATED Result Value Ref Range WBC 15.7 (H) 4.8 - 10.8 x10'3/uL RBC 5.27 4.20 - 5.40 x10'6/uL HGB 13.3 12.0 - 16.0 G/DL HCT 42.8 38.0 - 48.0 % MCV 81.2 81.0 - 99.0 FL MCH 25.2 (L) 27.0 - 31.0 PG MCHC 31.1 (L) 32.0 - 36.0 G/DL RDW 15.9 (H) 11.5 - 14.5 % PLT 392 130 - 400 x10'3/uL MPV 10.2 9.3 - 12.2 FL NEUTROPHILS 62.9 43.0 - 65.0 % LYMPHOCYTES 25.9 20.0 - 46.0 % MONOCYTES 7.8 5.0 - 12.0 % EOSINOPHILS 2.7 1.0 - 3.0 % BASOPHILS 0.4 0.0 - 1.0 % IMMATURE GRANS 0.3 0.0 - 1.0 % COMPREHENSIVE METABOLIC PANEL Result Value Ref Range GLUCOSE 85 70 - 99 MG/DL BUN 9 7 - 18 MG/DL CREATININE 0.75 0.55 - 1.02 MG/DL SODIUM 141 136 - 145 MMOL/L POTASSIUM 3.9 3.5 - 5.1 MMOL/L CHLORIDE 109 (H) 100 - 108 MMOL/L CO2 25.8 21 - 32 MMOL/L CALCIUM 8.8 8.5 - 10.1 MG/DL TOTAL BILIRUBIN 0.2 0.2 - 1.2 MG/DL TOTAL PROTEIN 7.3 6.4 - 8.2 G/DL ALBUMIN 3.4 3.4 - 5.0 G/DL AST 59 (H) 15 - 37 U/L ALT 55 14 - 55 U/L ALK PHOS 131 50 - 136 U/L ANION GAP 10.1 8 - 20 MMOL/L BUN CREATININE RATIO 12.0 6 - 26 A/G RATIO 0.9 (L) 1.0 - 2.0 RATIO eGFR Non-Afr. Amer. >90 >90 ML/MIN/1.73 M2 eGFR Afr. Amer. >90 >90 ML/MIN/1.73 M2 LIPASE Result Value Ref Range LIPASE 107 73 - 393 UNITS/L URINALYSIS WI REFLEX TO CULTURE Result Value Ref Range Specimen Type URINE CLEAN CATCH COLOR YELLOW TRANSPARENCY CLEAR Specific Hanna (U) 1.020 1.001 - 1.030 U PH 5.0 5.0 - 9.0 LEUKOCYTE ESTERASE NEGATIVE NEGATIVE NITRITES NEGATIVE NEGATIVE PROTEIN, URINE NEGATIVE <30 MG/DL URINE GLUCOSE NEGATIVE NEGATIVE MG/DL U KETONES NEGATIVE NEGATIVE MG/DL UROBILINOGEN 2.0 (A) NEGATIVE MG/DL Urine Bilirubin NEGATIVE NEGATIVE MG/DL BLOOD SMALL (A) NEGATIVE CULTURE & SENSITIVITY INDICATED? CULTURE IS NOT INDICATED SQUAMOUS EPITHELIALS MANY /LPF MUCUS FEW /LPF WBC/HPF 2 <6 /HPF RBC/HPF 5 <6 /HPF IMAGING STUDIES CT ABD+PEL W IV CON ONLY (Results Pending) ED Course / Medical Decision Making The patient rested comfortably throughout her ED stay. Workup revealed on nonspecific leukocytosis.Given her symptoms, I suspect gastritis vs. PUD. Plan for H2 sandeep, pain and nausea control, and primary care followup. Clinical Impression: Gastritis Disposition: Discharged, stable. Stacia Mabry MD 06/30/17 1105 * Rosa Lee RN - 06/28/2017 6:37 PM CDT Came to ED via EMS for right upper quad abdominal pain that started today. Reports vomiting last night documented in this encounter Plan of Treatment Not on file documented as of this encounter Procedures Procedure Name Priority Date/Time Associated Diagnosis Comments ECG 12-LEAD STAT 06/29/2017 11:[address] ABD+PEL W CON STAT 06/28/2017 11:0 2 PM CDT URINALYSIS WI REFLEX TO CULTURE STAT 06/28/2017 7:55 PM CDT COMPREHENSIVE METABOLIC PANEL STAT 06/28/2017 7:54 PM CDT CHORIONIC GONADOTROPIN HCG QL STAT 06/28/2017 7:54 PM CDT CBC W/DIFF AUTOMATED STAT 06/28/2017 7:54 PM CDT LIPASE STAT 06/28/2017 7:54 PM CDT documented in this encounter Results * ECG 12 lead (06/29/2017 11:55 PM CDT) 06/29/2017 11:5 5 PM CDT Narrative [facility] - 06/29/2017 11:55 PM CDT ?[facility] ? [address] ? Test Date: ?2017-06-28 Pat Name: ? AROLDO VILLALPANDO ?Department: ?? 41 ? Room: ? BJ Gender: ? Female ? Dry Molder: ?? pl : ?1985 ? Requested By: STACIA MABRY Order Number: [id number] ? Reading MD: ?? Akshat House ? Measurements Intervals ?[place] ? Rate: ? 51 ? P: ?26 AK: ? 174 ?QRS: ?41 QRSD: ? 96 ? T: ?18 QT: ? 433 ? QTc: ?402 ? Interpretive Statements SINUS BRADYCARDIA WITH SINUS ARRHYTHMIA Compared to ECG 05/05/2015 02:55:00 Sinus rate has decreased Intraventricular conduction delay no longer present Procedure Note Akshat House MD - 06/29/[address] Test Date: 2017-06-28 Pat Name: AROLDO VILLALPANDO Department: 41 Room: BJ Gender: Female Dry Molder: elva : 1985 Requested By: STACIA MABRY Order Number: [id number] Reading MD: Akshat House Measurements Intervals [place] Rate: 51 P: 26 AK: 174 QRS: 41 QRSD: 96 T: 18 QT: 433 QTc: 402 Interpretive Statements SINUS BRADYCARDIA WITH SINUS ARRHYTHMIA Compared to ECG 05/05/2015 02:55:00 Sinus rate has decreased Intraventricular conduction delay no longer present us Stacia Mabry MD ECG ORDERABLES Final Re sult [facility] * CT ABD+PEL W IV CON ONLY (06/28/2017 11:02 PM CDT) Anatomical Region Laterality Modality Abdomen Computed Tomogra phy 06/28/2017 11:1 6 PM CDT Impressions 06/28/2017 11:20 PM CDT IMPRESSION: 1. No acute abdominal or pelvic process appreciated. Narrative 06/28/2017 11:20 PM CDT EXAMINATION: CT Abdomen and Pelvis with contrast CLINICAL HISTORY: Right upper quadrant pain. Vomiting last night. COMPARISON: 10/07/2015 TECHNIQUE: Computed tomography of the abdomen and pelvis was obtained after administration of intravenous contrast, 100 mL of Isovue-370, without immediate complication according to routine protocol. A dose lowering technique was used for this procedure, which may include, but is not limited to, dose reduction technique, automated exposure control, the use of iterative reconstruction, and ALARA (As Low As Reasonably Achievable) / Image Gently techniques. FINDINGS: No free fluid, free air or areas of inflammation present within the abdomen or pelvis. Gallbladder surgically absent. No biliary ductal dilatation other than the expected mild compensatory prominence of the common duct after cholecystectomy. Liver, spleen, kidneys, adrenal glands, pancreas and uterus unremarkable. No adnexal masses. Corpus luteal cyst seen within the left ovary. Gastrointestinal tract shows no evidence of obstruction or other significant pathology. The appendix is normal. No abdominal or pelvic lymphadenopathy. Major vascular structures are of normal course and caliber. Visible lung bases are clear. Visualized bones show no suspicious lytic or blastic lesions. L4-5 DDD noted. Procedure Note Scott Fontenot MD - 06/28/2017 EXAMINATION: CT Abdomen and Pelvis with contrast CLINICAL HISTORY: Right upper quadrant pain. Vomiting last night. COMPARISON: 10/07/2015 TECHNIQUE: Computed tomography of the abdomen and pelvis was obtainedafter administration of intravenous contrast, 100 mL of Isovue-370, without immediate complication according to routine protocol. A dose lowering technique was used for this procedure, which mayinclude, but is not limited to, dose reduction technique, automated exposure control, the use of iterative reconstruction, and ALARA (As Low As Reasonably Achievable) / Image Gently techniques. FINDINGS: No free fluid, free air or areas of inflammation present within theabdomen or pelvis. Gallbladder surgically absent. No biliary ductal dilatation other thanthe expected mild compensatory prominence of the common duct after cholecystectomy. Liver, spleen, kidneys, adrenal glands, pancreas and uterus unremarkable. No adnexal masses. Corpus luteal cyst seen withinthe left ovary. Gastrointestinal tract shows no evidence of obstruction or other significant pathology. The appendix is normal. No abdominal or pelvic lymphadenopathy. Major vascular structures are of normal course and caliber. Visible lung bases are clear. Visualized bones show no suspicious lyticor blastic lesions. L4-5 DDD noted. IMPRESSION: 1. No acute abdominal or pelvic process appreciated. us Stacia Mabry MD CT Final Re sult * (ABNORMAL) URINALYSIS WI REFLEX TO CULTURE (06/28/2017 7:55 PM CDT) SPECIMEN TYPE URINE CLEAN CATCH 06/28/2017 7:55 PM CDT [facility] COLOR (U) YELLOW 06/28/2017 8:15 PM CDT [facility] TRANSPARENCY CLEAR 06/28/2017 8:15 PM CDT [facility] SPECIFIC GRAVITY (U) 1.020 1.001 - 1.030 06/28/2017 8:15 PM CDT [facility] U PH 5.0 5.0 - 9.0 06/28/2017 8:15 PM CDT [facility] LEUKOCYTES (U) NEGATIVE NEGATIVE 06/28/2017 8:15 PM CDT [facility] NITRITES NEGATIVE NEGATIVE 06/28/2017 8:15 PM CDT [facility] PROTEIN (U) NEGATIVE <30 MG/DL 06/28/2017 8:15 PM CDT [facility] URINE GLUCOSE NEGATIVE NEGATIVE MG/DL 06/28/2017 8:15 PM CDT [facility] KETONES MG/DL (U) NEGATIVE NEGATIVE MG/DL 06/28/2017 8:15 PM CDT [facility] UROBILINOGEN 2.0(A) NEGATIVE MG/DL 06/28/2017 8:15 PM CDT [facility] BILIRUBIN (U) NEGATIVE NEGATIVE MG/DL 06/28/2017 8:15 PM CDT [facility] BLOOD (U) SMALL(A) NEGATIVE 06/28/2017 8:15 PM CDT [facility] CULTURE & SENSITIVITY INDICATED? CULTURE IS NOT INDICATED 06/28/2017 8:15 PM CDT [facility] SQUAMOUS EPITHELIALS MANY /LPF 06/28/2017 8:15 PM CDT [facility] MUCUS FEW /LPF 06/28/2017 8:15 PM CDT [facility] WBC/HPF 2 <6 /HPF 06/28/2017 8:15 PM CDT [facility] RBC/HPF 5 <6 /HPF 06/28/2017 8:15 PM CDT [facility] URINE SPECIMEN OBTAINED BY CLEAN CATCH PROCEDURE / Unknown 06/28/2017 7:55 PM CDT Byron Perez DNP URINE ORDERABLES Final Resul t Performing Organization Address City/[facility]/ZIP Co de Phone Number [facility] [address] [place] [address], [place] [phone] * LIPASE (06/28/2017 7:54 PM CDT) LIPASE 107 73 - 393 UNITS/L 06/28/2017 8:29 PM CDT [facility] 06/28/2017 7:54 PM CDT us Byron Perez DNP LABORATORY Final Result Performing Organization Address City/[facility]/ZIP Co de Phone Number [facility] [address] [place] [address], * (ABNORMAL) COMPREHENSIVE METABOLIC PANEL (06/28/2017 7:54 PM CDT) [facility] GLUCOSE 85 70 - 99 MG/DL 06/28/2017 8:29 PM CDT [facility] BUN 9 7 - 18 MG/DL 06/28/2017 8:29 PM CDT [facility] CREATININE S/P/B 0.75 0.55 - 1.02 MG/DL 06/28/2017 8:29 PM CDT [facility] SODIUM S/P/B 141 136 - 145 MMOL/L 06/28/2017 8:29 PM CDT [facility] POTASSIUM S/P/B 3.9 3.5 - 5.1 MMOL/L 06/28/2017 8:29 PM CDT [facility] CHLORIDE S/P/B 109(H) 100 - 108 MMOL/L 06/28/2017 8:29 PM CDT [facility] CO2 25.8 21 - 32 MMOL/L 06/28/2017 8:29 PM CDT [facility] CALCIUM S/P/B 8.8 8.5 - 10.1 MG/DL 06/28/2017 8:29 PM CDT [facility] BILIRUBIN TOTAL S/P/B 0.2 0.2 - 1.2 MG/DL 06/28/2017 8:29 PM CDT [facility] TOTAL PROTEIN S/P/B 7.3 6.4 - 8.2 G/DL 06/28/2017 8:29 PM CDT [facility] ALBUMIN S/P/B 3.4 3.4 - 5.0 G/DL 06/28/2017 8:29 PM CDT [facility] AST 59(H) 15 - 37 U/L 06/28/2017 8:29 PM CDT [facility] ALT 55 14 - 55 U/L 06/28/2017 8:29 PM CDT [facility] ALKALINE PHOSPHATASE S/P/B 131 50 - 136 U/L 06/28/2017 8:29 PM CDT [facility] ANION GAP 10.1 8 - 20 MMOL/L 06/28/2017 8:29 PM CDT [facility] BUN CREATININE RATIO 12.0 6 - 26 06/28/2017 8:29 PM CDT [facility] A/G RATIO 0.9(L) 1.0 - 2.0 RATIO 06/28/2017 8:29 PM CDT [facility] EGFR NON-AFR. AMER. >90 >90 ML/MIN/1.7 3 M2 06/28/2017 8:29 PM CDT [facility] EGFR AFR. AMER. >90 >90 ML/MIN/1.7 3 M2 06/28/2017 8:29 PM CDT [facility] Comment: NOTE: eGFR is not calculated for patients <18 years of age. This is an estimated GFR (CKD EPI) and should not be used for calculating drug doses. 06/28/2017 7:54 PM CDT Byron Perez DNP LABORATORY Final Result [facility] [address] [place] [address], [place] [phone] * (ABNORMAL) CBC W/DIFF AUTOMATED (06/28/2017 7:54 PM CDT) WBC 15.7(H) 4.8 - 10.8 x10'3/uL 06/28/2017 8:20 PM CDT [facility] RBC 5.27 4.20 - 5.40 x10'6/uL 06/28/2017 8:20 PM CDT [facility] HGB 13.3 12.0 - 16.0 G/DL 06/28/2017 8:20 PM CDT [facility] HCT 42.8 38.0 - 48.0 % 06/28/2017 8:20 PM CDT [facility] MCV 81.2 81.0 - 99.0 FL 06/28/2017 8:20 PM CDT [facility] MCH 25.2(L) 27.0 - 31.0 PG 06/28/2017 8:20 PM CDT [facility] MCHC 31.1(L) 32.0 - 36.0 G/DL 06/28/2017 8:20 PM CDT [facility] RDW 15.9(H) 11.5 - 14.5 % 06/28/2017 8:20 PM CDT [facility] PLT 392 130 - 400 x10'3/uL 06/28/2017 8:20 PM CDT [facility] MPV 10.2 9.3 - 12.2 FL 06/28/2017 8:20 PM CDT [facility] NEUTROPHILS % 62.9 43.0 - 65.0 % 06/28/2017 8:20 PM CDT [facility] LYMPHOCYTES % 25.9 20.0 - 46.0 % 06/28/2017 8:20 PM CDT [facility] MONOCYTES % 7.8 5.0 - 12.0 % 06/28/2017 8:20 PM CDT [facility] EOSINOPHILS 2.7 1.0 - 3.0 % 06/28/2017 8:20 PM CDT [facility] BASOPHILS 0.4 0.0 - 1.0 % 06/28/2017 8:20 PM CDT [facility] IMMATURE GRANS % 0.3 0.0 - 1.0 % 06/28/2017 8:20 PM CDT [facility] 06/28/2017 7:54 PM CDT Byron Perez [facility] Final Result Performing Organization Address City/[facility]/ZIP Co de Phone Number [facility] [address] [place] [address], [place] [phone] * CHORIONIC GONADOTROPIN HCG QL (06/28/2017 7:54 PM CDT) PREG SCREEN-SERUM NEGATIVE 06/28/2017 8:21 PM CDT [facility] 06/28/2017 7:54 PM CDT Byron Perez [facility] Final Result Performing Organization Address [facility] de Phone Number [facility] [address] [place] [address], [place] [phone] documented in this encounter Visit Diagnoses Diagnosis Acute gastritis without hemorrhage, unspecified gastritis type- Primary documented in this encounter Administered Medications Inactive Administered Medications - up to 3 most recent administrations Medication Order MAR Action Action Date Dose Rate Site famotidine (PEPCID) injection 20 mg 20 mg, Intravenous, Once, 1 dose, On Mon06/28/17 at 2330, IV Push over 2 minutes Given 06/28/2017 11:51 PM CDT 20 mg iopamidol (ISOVUE-300) 61 % injection 100 mL 100 mL, Intravenous, IMG once as needed, Contrast, 1 dose, Starting on Mon06/28/17 at 2306, Until Mon06/28/17 at 2306 Given 06/28/2017 11:06 PM CDT 100 mLs Right Arm morphine (PF) injection 4 mg 4 mg, Intravenous, Once, 1 dose, On Mon06/28/17 at 2200 Given 06/28/2017 10:30 PM CDT 4 mg morphine (PF) injection 4 mg 4 mg, Intravenous, Once, 1 dose, On Mon06/28/17 at 2330 Given 06/28/2017 11:51 PM CDT 4 mg ondansetron (ZOFRAN) injection 4 mg 4 mg, Intravenous, Once, 1 dose, On Mon06/28/17 at 2200, IV push over 2-5 minutes. Given 06/28/2017 10:30 PM CDT 4 mg sodium chloride 0.9% bolus infusion SOLN 1,000 mL 1,000 mL, Intravenous, Administer over 15 Minutes, Once, 1 dose, On Mon06/28/17 at 2200 New Bag 06/28/2017 10:27 PM CDT 1,000 mLs documented in this encounter Active and Recently Administered Medications Times are shown in CDT. Scheduled Medication Order 06/27/2017 06/28/2017 06/29/2017 famotidine (PEPCID) injection 20 mg (COMPLETED) 20 mg, Intravenous, Once, 1 dose, On Mon06/28/17 at 2330, IV Push over 2 minutes 2351 (Given - Provider: Shaun Espinal RN) morphine (PF) injection 4 mg (COMPLETED) 4 mg, Intravenous, Once, 1 dose, On Mon06/28/17 at 2200 2230 (Given - Provider: Shaun Espinal RN) morphine (PF) injection 4 mg (COMPLETED) 4 mg, Intravenous, Once, 1 dose, On Mon06/28/17 at 2330 2351 (Given - Provider: Shaun Espinal RN) ondansetron (ZOFRAN) injection 4 mg (COMPLETED) 4 mg, Intravenous, Once, 1 dose, On Mon06/28/17 at 2200, IV push over 2-5 minutes. 2230 (Given - Provider: Shaun Espinal RN) sodium chloride 0.9% bolus infusion SOLN 1,000 mL (COMPLETED) 1,000 mL, Intravenous, Administer over 15 Minutes, Once, 1 dose, On Mon06/28/17 at 2200 2227 (New Bag - Provider: Marilou Espinal RN)2354 (Infusion Stop Time - Provider: Chastity Espinal RN) PRN Medication Order 06/27/2017 06/28/2017 06/29/2017 iopamidol (ISOVUE-300) 61 % injection 100 mL (COMPLETED) 100 mL, Intravenous, IMG once as needed, Contrast, 1 dose, Starting on Mon06/28/17 at 2306, Until Mon06/28/17 at 2306 2306 (Given - Provider: Gavi Saravia RTR - Comment: rt forearm) documented in this encounter Care Teams Rail Track Maintainer Relationship Specialty Start Date End Date Mesfin Lee MD [address] [place], [place] [id number] PCP - General 03/20/16 documented as of this encounter
--- OUTSIDE RECORDS SUMMARY | 2024-02-18 17:01 | XMS_ITS | Encounter Summary ---
Author Organization [facility] Address [address] [place] [address]. [place] [address] [place] [address] Care Team Providers Care Ship Rigger Apprentice Name Role Phone Mesfin Lee MD Primary Care Provider [phone] Encounter Details Date Type Department Care Team (Late st Contact Info) Description 12/17/2016 [place] [address] , Generic Conversion, Social History Tobacco Use Types Packs/Day Years Used Date Smoking Tobacco: Never Assessed Comments Unknown Sex and Gender Information Value Date Recorded Sex Assigned at Not on file Legal Sex Female 7:08 PM CDT Gender Identity Not on file Sexual Orientation Not on file documented as of this encounter Plan of Treatment Not on file documented as of this encounter Visit Diagnoses Not on filedocumented in this encounter Care Teams Ship Rigger Apprentice Relationship Specialty Start Date End Date Mesfin Lee MD [address] [place] [address] PCP - General 03/20/16 documented as of this encounter
--- OUTSIDE RECORDS SUMMARY | 2024-02-18 17:01 | XMS_ITS | Encounter Summary ---
Author Organization [facility] Address [address] [place] [address]. [place] [address] [place] [address] Care Team Providers Care Information Technology Technician Name Role Phone Mesfin Lee MD Primary Care Provider [phone] Gemma Blackburn MD Primary Care Provider Unavailable Gemma Blackburn MD Primary Care Provider Unavailable Gemma Blackburn MD Primary Care Provider Unavailable Encounter Details Date Type Department Care Team (Late st Contact Info) Description 08/02/2010 [place] [address] Gemma Blackburn MD Social History [...] as of this encounter Visit Diagnoses Diagnosis Obesity complicating , childbirth, or puerperium, antepartum (HHS/HCC) Obesity complicating , childbirth, or the puerperium, antepartum condition or complication documented in this encounter Care Teams Information Technology Technician Relationship Specialty Start Date End Date Mesfin Lee MD [address] [place], [place] [id number] PCP - General 03/20/16 Gemma Blackburn MD PCP - General 10/06/15 7 Gemma Blackburn MD PCP - General 05/05/15 Gemma Blackburn MD PCP - General 09/02/11 documented as of this encounter
--- OUTSIDE RECORDS SUMMARY | 2024-02-18 17:01 | XMS_ITS | Encounter Summary ---
Author Organization [facility] Address [address] [place] [address]. [place] [address] [place] [address] Care Team Providers Care Weight Reducing Technician Name Role Phone Mesfin Lee MD Primary Care Provider [phone] Gemma Blackburn MD Primary Care Provider Unavailable Gemma Blackburn MD Primary Care Provider Unavailable Gemma Blackburn MD Primary Care Provider Unavailable Encounter Details Date Type Department Care Team (Late st Contact Info) Description 06/01/2010 [place] [address] Gemma Blackburn MD Social History [...] as of this encounter Visit Diagnoses Diagnosis Other known or suspected abnormality, not elsewhere classified, affecting management of mother, antepartum condition or complication ([facility]/HCC) Other known or suspected abnormality, not elsewhere classified, affecting management of mother, antepartum condition or complication documented in this encounter Care Teams Weight Reducing Technician Relationship Specialty Start Date End Date Mesfin Lee MD [address] [place] [address] PCP - General 03/20/16 Gemma Blackburn MD PCP - General 10/06/15 7 Gemma Blackburn MD PCP - General 05/05/15 Md, Generic Conversion, MD PCP - General 09/02/11 documented as of this encounter
--- OUTSIDE RECORDS SUMMARY | 2024-02-18 17:01 | XMS_ITS | Clinical Summary ---
Author Organization [facility] Address [address] [place] [address]. [place] [address] [place] [address] Care Team Providers Care Sign Board Erector Name Role Phone Mesfin Lee MD Primary Care Provider [phone] Allergies Active Allergy Reactions Criticality Noted Date Comments Penicillins Unknown 06/28/2017 Medications ondansetron 4 MG disintegrating tablet Take 1 tablet (4 mg total) by mouth every 8 (eight) hours as needed for Nausea. 20 tablet 8 Active amlodipine 5 MG tablet 9 Active divalproex ER 250 MG 24 hr tablet 0 Active divalproex ER 500 MG 24 hr tablet 0 Active gabapentin 300 MG capsule 0 Active Family History Medical History Relation Comments Cancer Mother Diabetes Mother Relation Status Comments Father Alive Mother Alive Social History Tobacco Use Types Packs/Day Years Used Date Smoking Tobacco: Every Day Cigarettes Smokeless Tobacco: Never Comments:e cigarettes Alcohol Use Standard Drinks/Week Comments Yes 0 (1 standard drink = 0.6 oz pur e alcohol) social drinker Comments No Sex and Gender Information Value Date Recorded Sex Assigned at Not on file Legal Sex Female 7:08 PM CDT Gender Identity Not on file Sexual Orientation Not on file Last Filed Vital Signs Vital Sign Reading Time Taken Comments Blood Pressure 134/104 12/18/2021 5:55 AM CDT Pulse 94 12/18/2021 5:55 AM CDT Temperature 36.5 ??C (97.7 ??F) 12/18/2021 5:55 AM CD T Respiratory Rate 16 12/18/2021 5:55 AM CDT Oxygen Saturation 95% 12/18/2021 5:55 AM CDT Inhaled Oxygen Concentration - - Weight 123.7 kg (272 lb 11.3 oz) 2021 11:02 PM CDT Height 172.7 cm (5' 8 ) 12/17/2021 11:0 2 PM CDT Body Mass Index 41.47 12/17/2021 11:02 PM CDT Plan of Treatment Health Maintenance Due Date Last Done Comments Cervical Cancer Screening Pa p Smear (Age 30 to 64) Every 3 Years 1983 Annual Physical 1986 Pneumococcal Vaccine: Pediatrics (0 to 5 Years) and At-Risk Patients (6 to 64 Years) (1 of 2 - PCV) 1989 Hepatitis C 2001 Hepatitis B Vaccines (1 of 3 - 19+ 3-dose series) 2002 Cervical Cancer Screening Pa p with HPV Testing (Age 30 to 64) Every 5 Years 2013 Cervical Cancer Screening wi th HPV 2013 DTaP, Tdap and Td Vaccines ( 2 - Td or Tdap) 01/17/2022 01/18/2012 Mammogram Screening 2023 COVID-19 Vaccine (3 - 2023-2 5 season) 2023 03/07/2020, 02/15/2020 Influenza Adult (#1) 2023 12/06/2018, 11/26/2017, 11/21/2017 HPV Vaccines Aged Out No longer eligi ble based on patient's age to complete this topic Meningococcal Vaccine Aged Out No ayad erickson eligible based on patient's age to complete this topic RSV Immunizations Under 20 Months Aged Out No longer eligible b ased on patient's age to complete this topic Insurance Dr [place] [id number] [place] Care Teams Sign Board Erector Relationship Specialty Start Date End Date Mesfin Lee MD [address] [place] [address] PCP - General 03/20/16
--- OUTSIDE RECORDS SUMMARY | 2024-02-18 17:01 | XMS_ITS | Encounter Summary ---
Author Organization [facility] Address [address] [place] [address]. [place] [address] [place] [address] Care Team Providers Care Head Still Operator Name Role Phone Mesfin Lee MD Primary Care Provider [phone] Encounter Details Date Type Department Care Team (Latest Contact Info) Description 12/17/2021 Travel Social History Tobacco Use Types Packs/Day Years [...] on file Sexual Orientation Not on file COVID-19 Exposure Response Date Recorded In the last 10 days, have yo u been in contact with someone who was confirmed or suspected to have Coronavirus/COVID-19? No / Unsure 12/17/2021 10:17 PM CDT documented as of this encounter Plan of Treatment Not on file documented as of this encounter Visit Diagnoses Not on filedocumented in this encounter Additional Health Concerns Infection Onset Date Last Indicated Resolved Time COVID-19 Rule Out 12/17/2021 12/17/2021 12/18/2021 8:09 AM CDT documented as of this encounter Care Teams Head Still Operator Relationship Specialty Start Date End Date Mesfin Lee MD [address] [place] [address] PCP - General 03/20/16 documented as of this encounter
--- OUTSIDE RECORDS SUMMARY | 2024-02-18 17:01 | XMS_ITS | Encounter Summary ---
Author Organization [facility] Address [address] [place] [address]. [place], [place] [id number] [place] [id number] Care Team Providers Care Aircraft Design Engineer Name Role Phone Mesfin Lee MD Primary Care Provider + [phone] Reason for Visit * Reason Comments Hypertension Headache Heartburn Encounter Details Date Type Department Care Team (Late st Contact Info) Description 12/18/2021 12:25 AM CDT - 12/18/2021 6:04 AM CDT Emergency [facility] [place] [address] Yovany Sanchez MD [address] [place] [id number] Hypertension; Headache; Heartburn Discharge Disposition: Home or Self Care (Routine [...] PM CDT documented as of this encounter Last Filed [...] Mass Index 41.47 12/17/2021 11:02 PM CDT documented in this encounter Discharge Instructions * Attachments The following attachments cannot be sent through Care Everywhere. * Dehydration Discharge Instructions, Adult ([facility]) * Headache Discharge Instructions, Adult ([facility]) * Near Fainting Discharge Instructions ([facility]) documented in this encounter Medications at Time of Discharge amlodipine 5 MG tablet 02/04/2019 divalproex ER 250 MG 24 hr tablet 03/21/2019 divalproex ER 500 MG 24 hr tablet 02/28/2019 gabapentin 300 MG capsule 03/21/2019 ondansetron 4 MG disintegrating tablet Take 1 tablet (4 mg total) by mouth every 8 (eight) hours as needed for Nausea. 20 tablet 06/28/2017 documented as of this encounter ED Notes * Avril White RN - 12/18/2021 6:03 AM CDT Provider discussed today's findings with the patient/family. The patient has been given informationregarding their treatment, follow up and concerning symptoms for which they should seek urgent or emergent attention. I have expressed the the importance of seeking attention should there be any new,or worsening symptoms or persistence of their condition. Patient verbalized understanding of the discharge instructions. Pt A/Ox4 at time of DC and left with mom out front parking lot. Took all belongings. * Luke Davis CNA - 12/18/2021 2:57 AM CDT This tech attempted to obtain konstantin swabbed on pt, pt refused. Luke Youngblood CNA, Lining Presser * Avril White RN - 12/18/2021 2:43 AM CDT Pt blood redrawn as precaution. * Yovany Sanchez MD - 12/18/2021 1:46 AM CDTAssociated Order(s): EKG Reading Chief Complaint Chief Complaint Patient presents with ??? Hypertension ??? Headache ??? Heartburn History of Present Illness 36 yo F pw multiple complaints - was at work when she first experienced nausea, lightheadedness & diaphoresis followed by vomiting 4-5 times. Subsequent onset of headache. Denies abdominal pain, flank pain, cough, sore throat, diarrhea, urinary symptoms. No recent illness. Was in usual state ofhealth before onset of symptoms. No alleviating or exacerbating factors. 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 Pcn [Penicillins] Unknown MEDICATIONS: Prior to Admission medications Medication Sig Start Date End Date Taking? Authorizing Provider amlodipine 5 MG tablet 02/04/19 [facility] divalproex ER 250 MG 24 hr tablet 03/21/19 [facility] divalproex ER 500 MG 24 hr tablet 02/28/19 [facility] gabapentin 300 MG capsule 03/21/19 [facility] ondansetron 4 MG disintegrating tablet Take 1 tablet (4 mg total) by mouth every 8 (eight) hours asneeded for Nausea. 06/28/17 Manuel Mabry MD PAST MEDICAL HISTORY: Past Medical History: Diagnosis Date ??? Bipolar 1 disorder, depressed (CMS/HCC) ??? Hypertension PAST SURGICAL HISTORY: Past Surgical History: Procedure Laterality Date ??? CHOLECYSTECTOMY ??? EXCISION CYST ovarian ??? HAND SURGERY ??? HERNIA REPAIR ??? TUBAL LIGATION FAMILY HISTORY: Family History Problem Relation Name Age of Onset ??? Cancer Mother ??? Diabetes Mother SOCIAL HISTORY: Social History Tobacco Use ??? Smoking status: Current Every Day Smoker Packs/day: 0.25 Types: Cigarettes ??? Smokeless tobacco: Never Used ??? Tobacco comment: e cigarettes Vaping Use ??? Vaping Use: Never used Substance Use Topics ??? Alcohol use: Yes Comment: social drinker ??? Drug use: No Review of Systems Review of Systems Constitutional: Positive for diaphoresis. HENT: Negative for rhinorrhea and sore throat. Respiratory: Negative for cough and shortness of breath. Cardiovascular: Negative for chest pain. Gastrointestinal: Positive for nausea and vomiting. Genitourinary: Negative for dysuria. Musculoskeletal: Negative for myalgias. Skin: Negative for rash. Neurological: Positive for light-headedness and headaches. All other systems reviewed and are negative. Physical Exam Filed Vitals: 12/18/21 0030 12/18/21 0230 12/18/21 0418 12/18/21 0555 BP: (!) 126/99 129/63 129/76 (!) 134/104 Pulse: 76 69 94 Resp: 16 Temp: 97.7 ??F (36.5 ??C) TempSrc: Oral SpO2: 96% 95% 96% (P) 95% Weight: Height: Physical Exam Vitals and nursing note reviewed. Constitutional: Appearance: Normal appearance. Comments: Appears uncomfortable HENT: Head: Normocephalic and atraumatic. Nose: Nose normal. Mouth/Throat: Mouth: Mucous membranes are moist. Pharynx: No posterior oropharyngeal erythema. Eyes: Extraocular Movements: Extraocular movements intact. Conjunctiva/sclera: Conjunctivae normal. Cardiovascular: Rate and Rhythm: Normal rate and regular rhythm. Pulses: Normal pulses. Pulmonary: Effort: Pulmonary effort is normal. No respiratory distress. Breath sounds: Normal breath sounds. Abdominal: General: There is no distension. Palpations: Abdomen is soft. Tenderness: There is no abdominal tenderness. Musculoskeletal: General: Normal range of motion. Cervical back: Normal range of motion and neck supple. No rigidity. Lymphadenopathy: Cervical: No cervical adenopathy. Skin: General: Skin is warm and dry. Capillary Refill: Capillary refill takes less than 2 seconds. Findings: No rash. Neurological: General: No focal deficit present. Mental Status: She is alert and oriented to person, place, and time. Psychiatric: Mood and Affect: Mood normal. Behavior: Behavior normal. Diagnostic Studies / Procedures ELECTROCARDIOGRAMS: No results found for this visit on 12/18/21. LABORATORY STUDIES: Results for orders placed or performed during the hospital encounter of 12/18/21 CBC W/DIFF AUTOMATED Result Value Ref Range WBC 18.7 (H) 4.5 - 11.0 x10'3/uL RBC 5.12 4.20 - 5.40 x10'6/uL HGB 12.4 12.0 - 16.0 G/DL HCT 41.0 38.0 - 48.0 % MCV 80.1 (L) 81.0 - 99.0 FL MCH 24.2 (L) 27.0 - 31.0 PG MCHC 30.2 (L) 32.0 - 36.0 G/DL RDW 18.2 (H) 11.5 - 14.5 % PLT 391 130 - 400 x10'3/uL MPV 9.8 9.3 - 12.2 FL DIFFERENTIAL TYPE MANUAL DIFFERENTIAL SEG NEUTROPHILS 67 % LYMPHOCYTES 22 % MONOCYTES 3 % EOSINOPHILS 7 % BASOPHILS 1 % ABS. NEUTROPHIL COUNT 12.53 (H) 1.80 - 7.70 x10'3/uL ABS.LYMPHOCYTES CALCULATED 4.11 1.00 - 4.80 x10'3/uL ABS. MONOCYTES CALCULATED 0.56 0.24 - 0.86 x10'3/uL ABS. EOSINOPHIL CALCULATED 1.31 (H) 0.04 - 0.36 x10'3/uL ABS. BASOPHIL CALCULATED 0.19 (H) 0.01 - 0.08 x10'3/uL RBC MORPHOLOGY SLIDE REVIEWED DORINDA 1+ PLT EST. ADEQUATE COMPREHENSIVE METABOLIC PANEL Result Value Ref Range GLUCOSE 77 70 - 99 MG/DL BUN 20 (H) 7 - 18 MG/DL CREATININE S/P/B 0.77 0.55 - 1.02 MG/DL SODIUM 134 (L) 136 - 145 MMOL/L POTASSIUM 6.6 (HH) 3.5 - 5.1 MMOL/L CHLORIDE S/P/B 108 100 - 108 MMOL/L CO2 20.0 (L) 21 - 32 MMOL/L CALCIUM 8.7 8.5 - 10.1 MG/DL BILIRUBIN TOTAL S/P/B 0.3 0.2 - 1.2 MG/DL TOTAL PROTEIN S/P/B 7.8 6.4 - 8.2 G/DL ALBUMIN S/P/B 3.4 3.4 - 5.0 G/DL AST 40 (H) 15 - 37 U/L ALT 31 14 - 55 U/L ALKALINE PHOSPHATASE S/P/B 115 50 - 136 U/L ANION GAP 6.0 5 - 15 MMOL/L BUN CREATININE RATIO 25.9 6 - 26 A/G RATIO 0.8 (L) 1.0 - 2.0 RATIO GFR ESTIMATE >90 >90 ML/MIN/1.73 M2 TROPONIN, QUANT Result Value Ref Range TROPONIN I HIGH SENSITIVITY 5 <54 ng/L COMPREHENSIVE METABOLIC PANEL Result Value Ref Range GLUCOSE 81 70 - 99 MG/DL BUN 21 (H) 7 - 18 MG/DL CREATININE S/P/B 0.64 0.55 - 1.02 MG/DL SODIUM 140 136 - 145 MMOL/L POTASSIUM 4.0 3.5 - 5.1 MMOL/L CHLORIDE S/P/B 110 (H) 100 - 108 MMOL/L CO2 22.4 21 - 32 MMOL/L CALCIUM 8.6 8.5 - 10.1 MG/DL BILIRUBIN TOTAL S/P/B 0.1 (L) 0.2 - 1.2 MG/DL TOTAL PROTEIN S/P/B 7.4 6.4 - 8.2 G/DL ALBUMIN S/P/B 3.4 3.4 - 5.0 G/DL AST 16 15 - 37 U/L ALT 29 14 - 55 U/L ALKALINE PHOSPHATASE S/P/B 106 50 - 136 U/L ANION GAP 7.6 5 - 15 MMOL/L BUN CREATININE RATIO 32.6 (H) 6 - 26 A/G RATIO 0.8 (L) 1.0 - 2.0 RATIO GFR ESTIMATE >90 >90 ML/MIN/1.73 M2 CBC W/DIFF AUTOMATED Result Value Ref Range WBC 17.2 (H) 4.5 - 11.0 x10'3/uL RBC 5.08 4.20 - 5.40 x10'6/uL HGB 12.0 12.0 - 16.0 G/DL HCT 41.2 38.0 - 48.0 % MCV 81.1 81.0 - 99.0 FL MCH 23.6 (L) 27.0 - 31.0 PG MCHC 29.1 (L) 32.0 - 36.0 G/DL RDW 18.2 (H) 11.5 - 14.5 % PLT 461 (H) 130 - 400 x10'3/uL MPV 9.9 9.3 - 12.2 FL DIFFERENTIAL TYPE MANUAL DIFFERENTIAL SEG NEUTROPHILS 62 % LYMPHOCYTES 25 % MONOCYTES 4 % EOSINOPHILS 9 % ABS. NEUTROPHIL COUNT 10.66 (H) 1.80 - 7.70 x10'3/uL ABS.LYMPHOCYTES CALCULATED 4.30 1.00 - 4.80 x10'3/uL ABS. MONOCYTES CALCULATED 0.69 0.24 - 0.86 x10'3/uL ABS. EOSINOPHIL CALCULATED 1.55 (H) 0.04 - 0.36 x10'3/uL RBC MORPHOLOGY SLIDE REVIEWED POIKLO 1+ POLY 1+ PLT EST. INCREASED TROPONIN, QUANT Result Value Ref Range TROPONIN I HIGH SENSITIVITY 6 <54 ng/L URINALYSIS Result Value Ref Range Specimen Type URINE CLEAN CATCH COLOR (U) LIGHT YELLOW TRANSPARENCY CLEAR Specific [place] (U) 1.021 1.001 - 1.030 U PH 5.5 5.0 - 9.0 LEUKOCYTE ESTERASE NEGATIVE NEGATIVE NITRITES NEGATIVE NEGATIVE PROTEIN (U) NEGATIVE <30 MG/DL URINE GLUCOSE NORMAL NORMAL MG/DL U KETONES NEGATIVE NEGATIVE MG/DL UROBILINOGEN NORMAL NORMAL MG/DL BILIRUBIN (U) NEGATIVE NEGATIVE MG/DL BLOOD NEGATIVE NEGATIVE CULTURE & SENSITIVITY INDICATED? CULTURE IS NOT INDICATED LACTIC ACID Result Value Ref Range LACTIC ACID 1.7 0.4 - 2.0 MMOL/L IMAGING STUDIES XR CHEST PORTABLE Final Result by User, [id number] (12/19 419) EXAMINATION: XR Portable CXR, 1 View INDICATION: 36-year-old female with hypertension, headache, heartburn, dizzy spells, nausea. COMPARISON: None FINDINGS: The cardiomediastinal silhouette is within normal limits. Pulmonary vascularity is normal. No acute infiltrate, consolidation, pneumothorax, or pleural effusion. No acute osseous abnormality. IMPRESSION: 1. No acute pulmonary disease. Referred By: Interpreted By: Mojgan Brock MD, 12/18/2021 4:19 AM EKG Reading Date/Time: 12/18/2021 4:46 AM Performed by: Yovany Sanchez MD Authorized by: Yovany Sanchez MD Interpreted by ED physician Rhythm: sinus rhythm Rate: normal BPM: 60 QRS axis: normal Conduction: conduction normal ST Segments: ST segments normal T Waves: T waves normal Clinical impression: normal ECG ED Course / Medical Decision Making MDM Number of Diagnoses or Management Options Dehydration Headache Leukocytosis Near syncope Diagnosis management comments: 36 yo F pw symptoms suggestive of near syncope ?vagal? Followed by development of persistent headache without any meningeal signs or infectious symptoms. Broad workup to evaluate for possible early infectious vs metabolic etiology. No arrhythmogenic pathology on ekg//cardiac monitoring. Preordered bloodwork significant for leukocytosis (without meeting other SIRs criteria) & elevated bun/cr ratio suggestive of dehydration however with nml lactic acid & no infectious changes on UA or CXR. Questionable early infection as etiology vs reactive leukocytosis (initial CMP was hemolyzed specimen). Extensive discussion with patient regarding strict return precautions Amount and/or Complexity of Data Reviewed Clinical lab tests: reviewed Tests in the radiology section of CPT??: reviewed Decide to obtain previous medical records or to obtain history from someone other than the patient:yes Patient Progress Patient progress: (Very slight improvement) ED Course as of 12/18/21556 Sat Dec 18, 2021 0336 BUN CREATININE RATIO(!): 32.6 [CA] 0441 WBC(!): 17.2 No bandemia or neutrophile predominance [CA] 0523 LACTIC ACID: 1.7 [CA] ED Course User Index [CA] Yovany Sanchez MD Clinical Impression Headache (Primary) Leukocytosis Dehydration Near syncope Disposition: Discharge Yovany Sanchez MD 12/18/21556 * Avril White RN - 12/18/2021 12:40 AM CDT Pt refused covid swab - reports she took home test on Monday morning due to feeling so bad and it was negative. 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 * Adrián Pacheco APRN - 12/17/2021 11:06 PM CDT [place], [place] EMERGENCY DEPARTMENT ENCOUNTER Medical Screening Examination 12/17/21 11:07 PM Chief Complaint : Hypertension, Headache, and Heartburn HPI : Aroldo Villalpando is a 36-year-old female who presents to the ED today for evaluation of HTN, headache, heartburn, dizzy spells. Nausea. States her BP usually runs high but it spiked up to 170s/100 at work. She states just feels like shhe is burning up. Unsure if she took her BP medication today. Vital Signs: Filed Vitals: 12/17/212301 BP: (!) 152/102 Pulse: 74 Resp: 20 Temp: 97.9 ??F (36.6 ??C) SpO2: 99% Weight: 123.7 kg (272 lb 11.3 oz) Height: 5' 8 (1.727 m) Physical exam: A brief physical exam was completed to facilitate/expedite patient care. [place] findings include: alert, stable, no acute distress noted Plan: Plan: Necessary labs/imaging/medications ordered to initiate pt care. Adrián Pacheco APRN, dictated portions of this note using [employer] speech recognition software. Occasional wrong word or sound-alike substitutions may have occurred due to the inherent limitations of voice recognition software. Please read carefully and recognize, using context, where the substitutions may have occurred. Adrián Pacheco APRN 12/17/212306 Cosigned by Yovany Sanchez MD at 12/18/2021 10:54 PM CDT * Yan Brown RN - 12/17/2021 11:05 PM CDT Patient ambulatory to triage from home with complaint of hypertension headache and nausea, patient states that she takes amlodipine for hypertension and cannot remember if she took it today, patient states that she was starting to feel like her BP was elevated and she took it at work noting it to be 170s/120s, patient is A&Ox4 denies any other complaints at this time. documented in this encounter Plan of Treatment Not on file documented as of this encounter Procedures Procedure Name Priority Date/Time Associated Diagnosis Comments LACTIC ACID TIMED 12/18/2021 4:52 AM CDT ELECTROCARDIOGRAM REPORT Routine 022 4:46 AM CDT XR CHEST PORTABLE STAT 12/18/2021 4:1 0 AM CDT HC URINALYSIS AUTO W/O MICRO STAT 12/18/2021 3:10 AM CDT CBC W/DIFF AUTOMATED STAT 12/18/2021 2:43 AM CDT TROPONIN, QUANT STAT 12/18/2021 2:43 AM CDT ECG 12-LEAD Routine 12/18/2021 2:37 AM CDT COMPREHENSIVE METABOLIC PANEL STAT 12/18/2021 2:32 AM CDT COMPREHENSIVE METABOLIC PANEL STAT 12/18/2021 1:50 AM CDT CBC W/DIFF AUTOMATED STAT 12/18/2021 1:50 AM CDT TROPONIN, QUANT STAT 12/18/2021 1:50 AM CDT documented in this encounter Results * LACTIC ACID (12/18/2021 4:52 AM CDT) LACTIC ACID VENOUS 1.7 0.4 - 2.0 MMOL/L 12/18/2021 5:22 AM CDT [facility] 12/18/2021 4:52 AM CDT Yovany Sanchez MD LABORATORY Final Result [facility] [address] [place] [address], [place] [phone] * EKG Reading (12/18/2021 4:46 AM CDT) Narrative Yovany Sanchez MD - 12/18/2021 4:46 AM CDT Yovany Sanchez MD ? 12/18/2021 ??5:57 AM EKG Reading Date/Time: 12/18/2021 4:46 AM Performed by: Yovany Sanchez MD Authorized by: Yovany Sanchez MD Interpreted by ED physician Rhythm: sinus rhythm Rate: normal BPM: 60 QRS axis: normal Conduction: conduction normal ST Segments: ST segments normal T Waves: T waves normal Clinical impression: normal ECG Yovany Sanchez MD [place] [facility] Final Result * XR CHEST PORTABLE (12/18/2021 4:10 AM CDT) Anatomical Region Laterality Modality Chest Fluoroscopy 12/18/2021 4:19 AM CDT Impressions 12/18/2021 4:19 AM CDT IMPRESSION: 1. No acute pulmonary disease. Referred By: ?? Interpreted By: Mojgan Brock MD, 12/18/2021 4:19 AM Narrative 12/18/2021 4:19 AM CDT EXAMINATION: XR Portable CXR, 1 View INDICATION: 36-year-old female with hypertension, headache, heartburn, dizzy spells, nausea. COMPARISON: None FINDINGS: The cardiomediastinal silhouette is within normal limits. Pulmonary vascularity is normal. No acute infiltrate, consolidation, pneumothorax, or pleural effusion. No acute osseous abnormality. Procedure Note Mojgan Brock MD - 12/18/2021 EXAMINATION: XR Portable CXR, 1 View INDICATION: 36-year-old female with hypertension, headache, heartburn,dizzy spells, nausea. COMPARISON: None FINDINGS: The cardiomediastinal silhouette is within normal limits. Pulmonaryvascularity is normal. No acute infiltrate, consolidation, pneumothorax,or pleural effusion. No acute osseous abnormality. IMPRESSION: 1. No acute pulmonary disease. Referred By: Interpreted By: Mojgan Brock MD, 12/18/2021 4:19 AM Yovany Sanchez MD GENERAL IMAGING Final Result * URINALYSIS (12/18/2021 3:10 AM CDT) SPECIMEN TYPE URINE CLEAN CATCH 12/18/2021 3:10 AM CDT [facility] COLOR (U) LIGHT YELLOW 12/18/2021 3:20 AM CDT [facility] TRANSPARENCY CLEAR 12/18/2021 3:20 AM CDT [facility] SPECIFIC GRAVITY (U) 1.021 1.001 - 1.030 12/18/2021 3:20 AM CDT [facility] U PH 5.5 5.0 - 9.0 12/18/2021 3:20 AM CDT [facility] LEUKOCYTES (U) NEGATIVE NEGATIVE 12/18/2021 3:20 AM CDT [facility] NITRITES NEGATIVE NEGATIVE 12/18/2021 3:20 AM CDT [facility] PROTEIN (U) NEGATIVE <30 MG/DL 12/18/2021 3:20 AM CDT [facility] URINE GLUCOSE NORMAL NORMAL MG/DL 12/18/2021 3:20 AM CDT [facility] KETONES MG/DL (U) NEGATIVE NEGATIVE MG/DL 12/18/2021 3:20 AM CDT [facility] UROBILINOGEN NORMAL NORMAL MG/DL 12/18/2021 3:20 AM CDT [facility] BILIRUBIN (U) NEGATIVE NEGATIVE MG/DL 12/18/2021 3:20 AM CDT [facility] BLOOD (U) NEGATIVE NEGATIVE 12/18/2021 3:20 AM CDT [facility] CULTURE & SENSITIVITY INDICATED? CULTURE IS NOT INDICATED 12/18/2021 3:20 AM CDT [facility] URINE SPECIMEN OBTAINED BY CLEAN CATCH PROCEDURE / Unknown 12/18/2021 3:10 AM CDT Yovany Sanchez MD URINE ORDERABLES Final Result Performing Organization Address City/[facility]/ZIP Co de Phone Number [facility] [address] [place] [address], [place] [phone] * TROPONIN, QUANT (12/18/2021 2:43 AM CDT) [facility] TROPONIN I HIGH SENSITIVITY 6 <54 ng/L 12/18/2021 3:18 AM CDT [facility] Comment: HIGH DOSES OF BIOTIN, TROPONIN-SPECIFIC AUTOANTIBODIES, AND ANTIBODY THERAPY CONTAINING HAMA MAY INTERFERE WITH THIS TEST RESULT. CORRELATION TO CLINICAL HISTORY AND PRESENTATION RECOMMENDED. 12/18/2021 2:43 AM CDT Yovany Sanchez MD LABORATORY Final Result [facility] [address] [place] [address], [place] [phone] * (ABNORMAL) CBC W/DIFF AUTOMATED (12/18/2021 2:43 AM CDT) [facility] WBC 17.2(H) 4.5 - 11.0 x10'3/uL 12/18/2021 2:59 AM CDT [facility] RBC 5.08 4.20 - 5.40 x10'6/uL 12/18/2021 2:59 AM CDT [facility] HGB 12.0 12.0 - 16.0 G/DL 12/18/2021 2:59 AM CDT [facility] HCT 41.2 38.0 - 48.0 % 12/18/2021 2:59 AM CDT [facility] MCV 81.1 81.0 - 99.0 FL 12/18/2021 2:59 AM CDT [facility] MCH 23.6(L) 27.0 - 31.0 PG 12/18/2021 2:59 AM CDT [facility] MCHC 29.1(L) 32.0 - 36.0 G/DL 12/18/2021 2:59 AM CDT [facility] RDW 18.2(H) 11.5 - 14.5 % 12/18/2021 2:59 AM CDT [facility] PLT 461(H) 130 - 400 x10'3/uL 12/18/2021 2:59 AM CDT [facility] MPV 9.9 9.3 - 12.2 FL 12/18/2021 2:59 AM CDT [facility] DIFFERENTIAL TYPE MANUAL DIFFERENTIAL 12/18/2021 3:21 AM CDT [facility] SEG NEUTROPHILS 62 % 3:21 AM CDT [facility] LYMPHOCYTES 25 % 12/18/2021 3:21 AM CDT [facility] MONOCYTES 4 % 12/18/2021 3:21 AM CDT [facility] EOSINOPHILS 9 % 12/18/2021 3:21 AM CDT [facility] ABS. NEUTROPHILS CALCULATED 10.66(H) 1.80 - 7.70 x10'3/uL 12/18/2021 3:21 AM CDT [facility] ABS.LYMPHOCYTES CALCULATED 4.30 1.00 - 4.80 x10'3/uL 12/18/2021 3:21 AM CDT [facility] ABS. MONOCYTES CALCULATED 0.69 0.24 - 0.86 x10'3/uL 12/18/2021 3:21 AM CDT [facility] ABS. EOSINOPHIL CALCULATED 1.55(H) 0.04 - 0.36 x10'3/uL 12/18/2021 3:21 AM CDT [facility] RBC MORPHOLOGY SLIDE REVIEWED 2021 3:21 AM CDT [facility] POIKLO 1+ 12/18/2021 3:21 AM CDT [facility] POLY 1+ 12/18/2021 3:21 AM CDT [facility] PLT EST. 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 [address], [place] ? Test Date: ?2021-12-18 Pat Name: ? AROLDO ANGELITA ?Department: ?? 41 ? Room: ? Gender: ? Female ? Heel Varnisher: ?? : ?1985 ? Requested By: ADRIÁN KACI Order Number: [id number] ? Reading MD: ?? Jose Carlos Mckeno ? Measurements Intervals ?[place] ? Rate: ? 60 ? P: ?27 [place]: ? 177 ?QRS: ?54 QRSD: ? 96 ? T: ?32 QT: ? 419 ? QTc: ?419 ? Interpretive Statements SINUS RHYTHM CRITICAL ALERT ISSUED ON 12-18-2021 2:50:20 Compared to ECG 06/28/2017 22:36:53 Sinus bradycardia no longer present Sinus arrhythmia no longer present LE ENDING MACHINE OPERATOR Procedure Note Jose Carlos Mckeon MD - 12/20/[address] [facility] Test Date: 2021-12-18 Pat Name: AROLDO VILLALPANDO Department: 41 Room: Gender: Female Heel Varnisher: : 1985 Requested By: ADRIÁN PACHECO Order Number: [id number] Reading MD: Jose Carlos Mckeon Measurements Intervals [place] Rate: 60 P: 27 [place]: 177 QRS: 54 QRSD: 96 T: 32 QT: 419 QTc: 419 Interpretive Statements SINUS RHYTHM CRITICAL ALERT ISSUED ON 12-18-2021 2:50:20 Compared to ECG 06/28/2017 22:36:53 Sinus bradycardia no longer present Sinus arrhythmia no longer present LE ENDING MACHINE OPERATOR us Adrián Pacheco LIVESTOCK SLAUGHTERER ECG ORDERABLES Final Result [facility] * (ABNORMAL) COMPREHENSIVE METABOLIC PANEL (12/18/2021 2:32 AM CDT) GLUCOSE 81 70 - 99 MG/DL 12/18/2021 3:13 AM CDT [facility] BUN 21(H) 7 - 18 MG/DL 12/18/2021 3:13 AM CDT [facility] CREATININE S/P/B 0.64 0.55 - 1.02 MG/DL 12/18/2021 3:13 AM CDT [facility] SODIUM S/P/B 140 136 - 145 MMOL/L 12/18/2021 3:13 AM CDT [facility] POTASSIUM S/P/B 4.0 3.5 - 5.1 MMOL/L 12/18/2021 3:13 AM T [facility] CHLORIDE S/P/B 110(H) 100 - 108 MMOL/L 12/18/2021 3:13 AM CDT [facility] CO2 22.4 21 - 32 MMOL/L 12/18/2021 3:13 AM CDT [facility] CALCIUM S/P/B 8.6 8.5 - 10.1 MG/DL 12/18/2021 3:13 AM CDT [facility] BILIRUBIN TOTAL S/P/B 0.1(L) 0.2 - 1.2 MG/DL 12/18/2021 3:13 AM T [facility] Comment: THIS ASSAY IS NOT RECOMMENDED FOR PATIENTS UNDERGOING TREATMENT WITH ELTROMBOPAG DUE TO THE POTENTIAL FOR FALSELY ELEVATED RESULTS. TOTAL PROTEIN S/P/B 7.4 6.4 - 8.2 G/DL 12/18/2021 3:13 AM CDT [facility] ALBUMIN S/P/B 3.4 3.4 - 5.0 G/DL 12/18/2021 3:13 AM CDT [facility] AST 16 15 - 37 U/L 12/18/2021 3:13 AM CDT [facility] ALT 29 14 - 55 U/L 12/18/2021 3:13 AM CDT [facility] ALKALINE PHOSPHATASE S/P/B 106 50 - 136 U/L 12/18/2021 3:13 AM CDT [facility] ANION GAP 7.6 5 - 15 MMOL/L 12/18/2021 3:13 AM CDT [facility] BUN CREATININE RATIO 32.6(H) 6 - 26 12/18/2021 3:13 AM CDT [facility] A/G RATIO 0.8(L) 1.0 - 2.0 RATIO 12/18/2021 3:13 AM CDT [facility] GFR ESTIMATE >90 >90 ML/MIN/1.7 3 M2 12/18/2021 3:13 AM CDT [facility] Comment: NOTE: eGFR is not calculated for patients <18 years of age. This is an estimated GFR calculation using the new CKD EPI creatinine equation without race and so does not require a correction factor for race. This estimated GFR should not be used for calculating drug doses. 12/18/2021 2:32 AM CDT Yovany Sanchez MD LABORATORY Final Result [facility] [address] [place] [address], [place] [phone] * TROPONIN, QUANT (12/18/2021 1:50 AM CDT) TROPONIN I HIGH SENSITIVITY 5 <54 ng/L 12/18/2021 2:30 AM CDT [facility] Comment: HIGH DOSES OF BIOTIN, TROPONIN-SPECIFIC AUTOANTIBODIES, AND ANTIBODY THERAPY CONTAINING HAMA MAY INTERFERE WITH THIS TEST RESULT. CORRELATION TO CLINICAL HISTORY AND PRESENTATION RECOMMENDED. 12/18/2021 1:50 AM CDT us Adrián Pacheco LIVESTOCK SLAUGHTERER LABORATORY Final Result [facility] [address] [place] [address], * (ABNORMAL) COMPREHENSIVE METABOLIC PANEL (12/18/2021 1:50 AM CDT) [facility] GLUCOSE 77 70 - 99 MG/DL 12/18/2021 2:30 AM CDT [facility] BUN 20(H) 7 - 18 MG/DL 12/18/2021 2:30 AM CDT [facility] CREATININE S/P/B 0.77 0.55 - 1.02 MG/DL 12/18/2021 2:30 AM CDT [facility] SODIUM S/P/B 134(L) 136 - 145 MMOL/L 12/18/2021 2:30 AM CDT [facility] POTASSIUM S/P/B 6.6(HH) 3.5 - 5.1 MMOL/L 12/18/2021 2:30 AM CDT [facility] Comment:SLIGHT HEMOLYSIS, RE SULT MAY BE AFFECTED. CHLORIDE S/P/B 108 100 - 108 MMOL/L 12/18/2021 2:30 AM CDT [facility] CO2 20.0(L) 21 - 32 MMOL/L 12/18/2021 2:30 AM CDT [facility] CALCIUM S/P/B 8.7 8.5 - 10.1 MG/DL 12/18/2021 2:30 AM CDT [facility] BILIRUBIN TOTAL S/P/B 0.3 0.2 - 1.2 MG/DL 12/18/2021 2:30 AM CDT [facility] Comment: THIS ASSAY IS NOT RECOMMENDED FOR PATIENTS UNDERGOING TREATMENT WITH ELTROMBOPAG DUE TO THE POTENTIAL FOR FALSELY ELEVATED RESULTS. TOTAL PROTEIN S/P/B 7.8 6.4 - 8.2 G/DL 12/18/2021 2:30 AM CDT [facility] ALBUMIN S/P/B 3.4 3.4 - 5.0 G/DL 12/18/2021 2:30 AM CDT [facility] AST 40(H) 15 - 37 U/L 12/18/2021 2:30 AM CDT [facility] Comment:SLIGHT HEMOLYSIS, RE SULT MAY BE AFFECTED. ALT 31 14 - 55 U/L 12/18/2021 2:30 AM CDT [facility] ALKALINE PHOSPHATASE S/P/B 115 50 - 136 U/L 12/18/2021 2:30 AM CDT [facility] ANION GAP 6.0 5 - 15 MMOL/L 12/18/2021 2:30 AM CDT [facility] BUN CREATININE RATIO 25.9 6 - 26 12/18/2021 2:30 AM T [facility] A/G RATIO 0.8(L) 1.0 - 2.0 RATIO 12/18/2021 2:30 AM T [facility] GFR ESTIMATE >90 >90 ML/MIN/1.7 3 M2 12/18/2021 2:30 AM T [facility] Comment: NOTE: eGFR is not calculated for patients <18 years of age. This is an estimated GFR calculation using the new CKD EPI creatinine equation without race and so does not require a correction factor for race. This estimated GFR should not be used for calculating drug doses. 12/18/2021 1:50 AM CDT us Adrián Pacheco APRN LABORATORY Final Result [facility] [address] [place] [address], [place] [phone] * (ABNORMAL) CBC W/DIFF AUTOMATED (12/18/2021 1:50 AM CDT) [facility] Signature WBC 18.7(H) 4.5 - 11.0 x10'3/uL 12/18/2021 2:36 AM CDT [facility] RBC 5.12 4.20 - 5.40 x10'6/uL 12/18/2021 2:36 AM CDT [facility] HGB 12.4 12.0 - 16.0 G/DL 12/18/2021 2:36 AM CDT [facility] HCT 41.0 38.0 - 48.0 % 12/18/2021 2:36 AM CDT [facility] MCV 80.1(L) 81.0 - 99.0 FL 12/18/2021 2:36 AM CDT [facility] MCH 24.2(L) 27.0 - 31.0 PG 12/18/2021 2:36 AM CDT [facility] MCHC 30.2(L) 32.0 - 36.0 G/DL 12/18/2021 2:36 AM CDT [facility] RDW 18.2(H) 11.5 - 14.5 % 12/18/2021 2:36 AM CDT [facility] PLT 391 130 - 400 x10'3/uL 12/18/2021 2:36 AM CDT [facility] MPV 9.8 9.3 - 12.2 FL 12/18/2021 2:36 AM CDT [facility] DIFFERENTIAL TYPE MANUAL DIFFERENTIAL 12/18/2021 2:38 AM CDT [facility] SEG NEUTROPHILS 67 % 2:38 AM CDT [facility] LYMPHOCYTES 22 % 12/18/2021 2:38 AM CDT [facility] MONOCYTES 3 % 12/18/2021 2:38 AM CDT [facility] EOSINOPHILS 7 % 12/18/2021 2:38 AM CDT [facility] BASOPHILS 1 % 12/18/2021 2:38 AM CDT [facility] ABS. NEUTROPHILS CALCULATED 12.53(H) 1.80 - 7.70 x10'3/uL 12/18/2021 2:38 AM CDT [facility] ABS.LYMPHOCYTES CALCULATED 4.11 1.00 - 4.80 x10'3/uL 12/18/2021 2:38 AM CDT [facility] ABS. MONOCYTES CALCULATED 0.56 0.24 - 0.86 x10'3/uL 12/18/2021 2:38 AM CDT [facility] ABS. EOSINOPHIL CALCULATED 1.31(H) 0.04 - 0.36 x10'3/uL 12/18/2021 2:38 AM CDT [facility] ABS. BASOPHIL CALCULATED 0.19(H) 0.01 - 0.08 x10'3/uL 12/18/2021 2:38 AM CDT [facility] RBC MORPHOLOGY SLIDE REVIEWED 2021 2:38 AM CDT [facility] POIKLO 1+ 12/18/2021 2:38 AM CDT [facility] PLT EST. ADEQUATE 12/18/2021 2:38 AM CDT [facility] 12/18/2021 1:50 AM CDT us Adrián Pacheco LIVESTOCK SLAUGHTERER LABORATORY Final Result [facility] [address] [place] [address], documented in this encounter Visit Diagnoses Diagnosis Headache- Primary Leukocytosis Leukocytosis, unspecified Dehydration Near syncope Syncope and collapse documented in this encounter Administered Medications Inactive Administered Medications - up to 3 most recent administrations Medication Order MAR Action Action Date Dose Rate Site famotidine (PF) (PEPCID) injection 20 mg 20 mg, Intravenous, Once, 1 dose, On Mon12/17/21 at 2315, IV Push over 2 minutes Given 12/18/2021 2:28 AM CDT 20 mg ketorolac (TORADOL) injection 15 mg 15 mg, Intravenous, Once, 1 dose, On 12/18/21 at 0515, For IV administration, give over 15 seconds. Given 12/18/2021 5:03 AM CDT 15 mg ketorolac (TORADOL) injection 30 mg 30 mg, Intravenous, Once, 1 dose, On Mon12/17/21 at 2315, For IV administration, give over 15 seconds. Given 12/18/2021 2:27 AM CDT 30 mg ondansetron (ZOFRAN) injection 4 mg 4 mg, Intravenous, Once, 1 dose, On Mon12/17/21 at 2315, IV push over 2-5 minutes. Given 12/18/2021 2:28 AM CDT 4 mg sodium chloride 0.9% bolus infusion 1,000 mL 1,000 mL, Intravenous, Administer over 30 Minutes, Once, 1 dose, On 12/18/21 at 0345 New Bag 12/18/2021 4:22 AM CDT 1,000 mLs documented in this encounter Active and Recently Administered Medications Times are shown in CDT. Scheduled Medication Order 12/16/2021 12/17/2021 12/18/2021 amLODIPine (NORVASC) tablet 5 mg 5 mg, Oral, Once, 1 dose, On Mon12/17/21 at 2315 0228 (Not Given - Pr ovider: Avril White RN - Reason: Patient already took - Comment: pt states she took this @ home this evening before coming in; not hypertensive) famotidine (PF) (PEPCID) injection 20 mg (COMPLETED) 20 mg, Intravenous, Once, 1 dose, On Mon12/17/21 at 2315, IV Push over 2 minutes 0228 (Given - Provid er: Avril White RN) ketorolac (TORADOL) injection 15 mg (COMPLETED) 15 mg, Intravenous, Once, 1 dose, On 12/18/21 at 0515, For IV administration, give over 15 seconds. 0503 (Given - Provid er: Avril White, CHRISTIAN) ketorolac (TORADOL) injection 30 mg (COMPLETED) 30 mg, Intravenous, Once, 1 dose, On Mon12/17/21 at 2315, For IV administration, give over 15 seconds. 0227 (Given - Provid er: Avril White RN) ondansetron (ZOFRAN) injection 4 mg (COMPLETED) 4 mg, Intravenous, Once, 1 dose, On Mon12/17/21 at 2315, IV push over 2-5 minutes. 0228 (Given - Provid er: Avril White RN) sodium chloride 0.9% bolus infusion 1,000 mL (COMPLETED) 1,000 mL, Intravenous, Administer over 30 Minutes, Once, 1 dose, On 12/18/21 at 0345 0422 (New Bag - Prov ider: Avril White RN)0505 (Infusion Stop Time - Provider: Avril White RN) documented in this encounter Additional Health Concerns Infection Onset Date Last Indicated Resolved Time COVID-19 Rule Out 12/17/2021 12/17/2021 12/18/2021 8:09 AM CDT documented as of this encounter Care Teams Aircraft Design Engineer Relationship Specialty Start Date End Date Mesfin Lee MD [address] [place], [place] [id number] PCP - General 03/20/16 documented as of this encounter
--- OUTSIDE RECORDS SUMMARY | 2024-02-18 17:01 | XMS_ITS | Encounter Summary ---
Author Organization [facility] Address [address] [place] [address]. [place] [address] [place] [address] Care Team Providers Care Licensing Officer Name Role Phone Mesfin Lee MD Primary Care Provider [phone] Gemma Blackburn MD Primary Care Provider Unavailable Gemma Blackburn MD Primary Care Provider Unavailable Gemma Blackburn MD Primary Care Provider Unavailable Encounter Details Date Type Department Care Team (Late st Contact Info) Description 05/06/2010 [place] [address] Gemma Blackburn MD Social History [...] management of mother, antepartum condition or complication ([facility]/HCC) Other known or suspected abnormality, not elsewhere classified, affecting management of mother, antepartum condition or complication documented in this encounter Care Teams Licensing Officer Relationship Specialty Start Date End Date Mesfin Lee MD [address] [place] [address] PCP - General 03/20/16 Gemma Blackburn MD PCP - General 10/06/15 7 Gemma Blackburn MD PCP - General 05/05/15 Md, Generic Conversion, MD PCP - General 09/02/11 documented as of this encounter
--- OUTSIDE RECORDS SUMMARY | 2024-02-18 17:01 | XMS_ITS | Encounter Summary ---
Author Organization [facility] Address [address] [place] [address]. [place] [address] [place] [address] Care Team Providers Care Pharmacist Helper Name Role Phone Mesfin Lee MD Primary Care Provider [phone] Md Generic Linus GOMEZ Primary Care Provider Unavailable Md Generic Linus GOMEZ Primary Care Provider Unavailable Md Generic Linus GOMEZ Primary Care Provider Unavailable Encounter Details Date Type Department Care Team (Late st Contact Info) Description 09/02/2011 Emergency [facility] [place] [address] Vicente Alejandra MD [address] [place] [address] Social History Tobacco Use Types Packs/Day Years Used Date Smoking Tobacco: Never Assessed Comments Unknown Sex and Gender Information Value Date Recorded Sex Assigned at Not on file Legal Sex Female 7:08 PM CDT Gender Identity Not on file Sexual Orientation Not on file documented as of this encounter Plan of Treatment Not on file documented as of this encounter Visit Diagnoses Diagnosis Closed fracture of phalanx of foot Closed fracture of one or more phalanges of foot documented in this encounter Care Teams Pharmacist Helper Relationship Specialty Start Date End Date Mesfin Lee MD [address] [place] [address] PCP - General 03/20/16 Gemma Gomez MD PCP - General 10/06/15 7 Gemma Gomez MD PCP - General 05/05/15 , Generic Conversion, PCP - General 09/02/11 documented as of this encounter
--- OUTSIDE RECORDS SUMMARY | 2024-02-18 17:01 | XMS_ITS | Encounter Summary ---
Author Organization [facility] Address [address] [place] [address]. [place] [address] [place] [address] Care Team Providers Care As400 Programmer Name Role Phone Mesfin Lee MD Primary Care Provider [phone] Encounter Details Date Type Department Care Team (Latest Contact Info) Description 04/16/2019 Travel Social History Tobacco Use Types Packs/Day [...] on filedocumented in this encounter Care Teams As400 Programmer Relationship Specialty Start Date End Date Mesfin Lee MD [address] [place] [address] PCP - General 03/20/16 documented as of this encounter
--- OUTSIDE RECORDS SUMMARY | 2024-02-18 17:01 | XMS_ITS | Encounter Summary ---
Author Organization [facility] Address [address] [place] [address]. [place], [place] [id number] [place] [address] Care Team Providers Care Chlorine Operator Name Role Phone Chey Lee MD Primary Care Provider + [phone] Reason for Visit * Reason Comments Flu Like Symptoms Encounter Details Date Type Department Care Team (Latest Contact Info) Description 04/16/2019 8:15 AM BOOK TRIMMER - 04/16/2019 9:08 AM BOOK TRIMMER Hospital Encounter [facility] [address] [place] [address] Candida Colbert, PA [address] [address] Flu Like Symptoms Discharge Disposition: Home or Self Care (Routine [...] Sign Reading Time Taken Comments Blood Pressure 126/74 04/16/2019 8:21 AM BOOK TRIMMER Pulse 90 04/16/2019 8:21 AM BOOK TRIMMER Temperature 36.6 ??C (97.8 ??F) 04/16/2019 8:21 AM CS T Respiratory Rate 20 04/16/2019 8:21 AM BOOK TRIMMER Oxygen Saturation 97% 04/16/2019 8:24 AM BOOK TRIMMER Inhaled Oxygen Concentration - - Weight 117.9 kg (260 lb) 04/16/2019 8:21 AM BOOK TRIMMER Height 172.7 cm (5' 8 ) 04/16/2019 8:21 AM BOOK TRIMMER Body Mass Index 39.53 04/16/2019 8:21 AM BOOK TRIMMER documented in this encounter Discharge Instructions * Discharge Instructions* CHINO Harden - 04/16/2019 8:58 AM BOOK TRIMMER Thank you for giving us the opportunity to care for you today. If at any point you are becoming more ill, please call your doctor, return here, or go to the ER. You are always welcome back. If you have any questions about this visit, concerns about your symptoms, questions about your medications or other concerns, please give us a call... - CECE Rhoades PA-C - Emergency Medicine Provider ADDITIONAL DISCHARGE INSTRUCTIONS: --Please follow all the instructions that we have discussed or are provided here. Take all medications as directed. --While the tests and exam we have performed at Urgent Care did not show anything dangerous or lifethreatening it is important for you to follow up with your doctor for further evaluation of your symptoms. It is also important to return to Urgent Care of the ER if your symptoms become worse or youhave new or further concerns. -- Please mention to your follow-up physician that you were at urgent care and request that they review your labs and/or imaging to ensure all findings are followed up on. --Again, it was a pleasure taking care of you. TRIMMER * Attachments The following attachments cannot be sent through Care Everywhere. * Nausea and Vomiting, Adult (Armenian) * Viral Upper Respiratory Infection Discharge Instructions, Adult (Armenian) * Flu (Armenian) documented in this encounter Medications at Time of Discharge amlodipine 5 MG tablet 02/04/2019 divalproex ER 250 MG 24 hr tablet 03/21/2019 divalproex ER 500 MG 24 hr tablet 02/28/2019 gabapentin 300 MG capsule 03/21/2019 ondansetron 4 MG disintegrating tablet Take 1 tablet (4 mg total) by mouth every 8 (eight) hours as needed for Nausea. 20 tablet 06/28/2017 ondansetron 4 MG disintegrating tablet Take 1 tablet (4 mg total) by mouth every 8 (eight) hours as needed. 20 tablet 04/16/2019 0 documented as of this encounter ED Notes * Joanne Malloy RN - 04/16/2019 8:56 AM CST States nausea is improved and has tolerated water TRIMMER * CHINO Harden - 04/16/2019 8:45 AM CST [facility] [place], [place] HISTORICAL INFORMATION Primary Care Doctor: CHEY LEE MD Patient information was obtained primarily from the patient, nursing notes. History/Exam limitations: None Provider at Bedside Date/Time Event User Comments 04/16/19 0840 Provider at Bedside Assessing Patient CANDIDA COLBERT CHIEF COMPLAINT Flu Like Symptoms Chief Complaint Patient presents with ??? Flu Like Symptoms HPI Ele Villalpando is a 34-year-old female who presents due to flu like symptoms for the past 3 days. Notes subjective fever and chills, cough, congestion, body aches, headaches, vomiting, and diarrhea. Notes decreased appetite, but able to tolerate PO fluids. Taking ibuprofen at home for symptoms. Had a flu shot this year. PAST MEDICAL HISTORY Past Medical History: Diagnosis Date ??? Bipolar 1 disorder, depressed (CMS/HCC) ??? Hypertension SURGICAL HISTORY Past Surgical History: Procedure Laterality Date ??? CHOLECYSTECTOMY ??? EXCISION CYST ovarian ??? HAND SURGERY ??? HERNIA REPAIR ??? TUBAL LIGATION CURRENT MEDICATIONS No current facility-administered medications for this encounter. Current Outpatient Medications: ??? divalproex ER 500 MG 24 hr tablet, , Disp: , Rfl: ??? ondansetron 4 MG disintegrating tablet, Take 1 tablet (4 mg total) by mouth every 8 (eight) hours as needed., Disp: 20 tablet, Rfl: 0 ??? amlodipine 5 MG tablet, , Disp: , Rfl: ??? divalproex ER 250 MG 24 hr tablet, , Disp: , Rfl: ??? gabapentin 300 MG capsule, , Disp: , Rfl: ??? ondansetron 4 MG disintegrating tablet, Take 1 tablet (4 mg total) by mouth every 8 (eight) hours as needed for Nausea., Disp: 20 tablet, Rfl: 0 ALLERGIES Allergies Allergen Reactions ??? Penicillins Unknown FAMILY HISTORY Family History Problem Relation Name Age of Onset ??? Cancer Mother ??? Diabetes Mother SOCIAL HISTORY Social History Socioeconomic History ??? Marital status: Spouse name: Not on file ??? Number of children: Not on file ??? Years of education: Not on file ??? Highest education level: Not on file Occupational History ??? Not on file Social Needs ??? Financial resource strain: Not on file ??? Food insecurity: Worry: Not on file Inability: Not on file ??? Transportation needs: Medical: Not on file Non-medical: Not on file Tobacco Use ??? Smoking status: Current Every Day Smoker Packs/day: 0.25 Types: Cigarettes ??? Smokeless tobacco: Never Used ??? Tobacco comment: e cigarettes Substance and Sexual Activity ??? Alcohol use: Yes Comment: social drinker ??? Drug use: No ??? Sexual activity: Not on file Lifestyle ??? Physical activity: Days per week: Not on file Minutes per session: Not on file ??? Stress: Not on file Relationships ??? Social connections: Talks on phone: Not on file Gets together: Not on file Attends roman catholic service: Not on file Active member of club or organization: Not on file Attends meetings of clubs or organizations: Not on file Relationship status: Not on file ??? Intimate partner violence: Fear of current or ex partner: Not on file Emotionally abused: Not on file Physically abused: Not on file Forced sexual activity: Not on file Other Topics Concern ??? Not on file Social History Narrative ??? Not on file REVIEW OF SYSTEMS Constitutional: +Fever/chills. Denies weight loss or weakness. Skin: Denies rash. HEENT: +Congestion, sore throat. Denies ear pain. Respiratory: +Cough. Denies shortness of breath. Cardiovascular: Denies chest pain, palpitations or swelling. GI: +N/V/D. Denies abdominal pain. : Denies dysuria, urinary frequency. Musculoskeletal: Denies back pain. Neurologic: Denies headache, focal weakness or sensory changes. Psychiatric: Denies depression, suicidal ideation or homicidal ideation. See HPI for further details. All systems negative except as marked. Physical Exam VITAL SIGNS: Filed Vitals: 04/16/19 0821 04/16/19 0824 BP: 126/74 Pulse: 90 Resp: 20 Temp: 97.8 ??F (36.6 ??C) TempSrc: Temporal SpO2: 97% 97% Weight: 117.9 kg (260 lb) Height: 5' 8 (1.727 m) Constitutional: Well developed, No acute distress, Non-toxic appearance. Integument: Warm, Dry, No erythema, No rash. HEENT: Normocephalic, Atraumatic, Conjunctiva normal, Posterior pharynx with no significant edema or erythema. Neck- Normal range of motion, Supple Back- Normal range of motion, No gross abnormality Respiratory: Normal breath sounds, No respiratory distress. Cardiovascular: Normal heart rate, Normal rhythm Musculoskeletal: Good ROM, no deformities noted Neurologic: Alert & oriented x 3, No focal deficits noted. Psychiatric: Affect normal, Judgment normal, Mood normal. EKG (interpreted by ED provider) No results found for this visit on 04/16/19. LABORATORY Labs Reviewed RAPID STREP A INFLUENZA A & B STREP A, DNA RADIOLOGY No orders to display PROCEDURES Procedures MDM Flu and strep are negative. Advised patient on these findings. Clinically suspect viral etiology ofsymptoms. No evidence of strep pharyngitis by exam and lungs are clear. Vital stable upon arrival. Patient given Zofran and tolerating p.o. intake. Advised on continued symptomatic treatment including Tylenol or ibuprofen, adequate rest, adequate fluid hydration, [id number] therapies for symptomatic relief. Also DC home with Zofran to help with nausea and vomiting. I have discussed today's findings with the patient and provided information regarding the likely diagnosis. The patient has been given information regarding their treatment, follow up and concerning symptoms for which they should seek urgent or emergent attention. I have expressed the the importance of seeking attention should there be any new, or worsening symptoms or persistence of their condition. The patient is stable at discharge and has verbalized understanding of these instructions. Impression/Disposition SNOMED CT(R) 1. Nausea & vomiting NAUSEA AND VOMITING 2. URI with cough and congestion UPPER RESPIRATORY INFECTION Disposition: Discharge Medications ondansetron (ZOFRAN-ODT) disintegrating tablet 4 mg (4 mg Oral Given 04/16/19837) acetaminophen (TYLENOL) tablet 1,000 mg (1,000 mg Oral Given 04/16/19837) Current Discharge Medication List START taking these medications Details !! ondansetron 4 MG disintegrating tablet Take 1 tablet (4 mg total) by mouth every 8 (eight) hoursas needed. Qty: 20 tablet, Refills: 0 Class: Eprescribe Pharmacy: [address] ( #: [phone]) !! - Potential duplicate medications found. Please discuss with provider. CHINO HARDEN PA 04/16/19900 Cosigned by Reno Parnell MD at 04/16/2019 10:29 AM BOOK TRIMMER TRIMMER TRIMMER * Joanne Malloy RN - 04/16/2019 8:20 AM CST C/o's flu s/s - Cough, runny nose, body aches, chills, sweats and headache, nausea, diarrhea and vomiting S/s x's 3 days Flu shot this season TRIMMER documented in this encounter Plan of Treatment Not on file documented as of this encounter Procedures Procedure Name Priority Date/Time Associated Diagnosis Comments STREP A, DNA STAT 04/16/2019 8:31 AM BOOK TRIMMER RAPID STREP A STAT 04/16/2019 8:31 AM BOOK TRIMMER INFLUENZA A & B STAT 04/16/2019 8:31 AM BOOK TRIMMER documented in this encounter Results * STREP A, DNA (04/16/2019 8:31 AM BOOK TRIMMER) STREP A MOLECULAR NEGATIVE NEGATIVE 020 4:[address] [facility] Comment:SPECIMEN NEGATIVE FO R GROUP A STREPTOCOCCUS BY DNA AMPLIFICATION 04/16/2019 8:31 AM BOOK TRIMMER Candida MAGANA MICROBIOLOGY - GENERAL [place]DE [place] Final Result Performing Organization Address City/[facility] Co de Phone Number [facility] [address] [place] [address], * INFLUENZA A & B (04/16/2019 8:31 AM BOOK TRIMMER) SPECIMEN TYPE NASOPHARYNGEAL SWAB 04/16/2019 8:[address] [facility] INFLUENZA A NEGATIVE NEGATIVE 04/16/2019 8:[address] [facility] INFLUENZA B NEGATIVE NEGATIVE 04/16/2019 8:[address] [facility] Comment: Interpretation: Negative for Influenza A and B. A negative result does not exclude influenza virus infection. If influenza is circulating in your community, a diagnosis of influenza should be considered based on a patient's clinical presentation and empiric antiviral treatment should be considered, if indicated. If more conclusive testing is needed for hospitalized inpatients, follow-up confirmatory testing with RT-PCR requires a separate order. NASOPHARYNGEAL SWAB / Unknown 04/16/2019 8:31 AM BOOK TRIMMER Candida MAGANA MICROBIOLOGY - GENERAL ORDE RABKRISTIAN Final Result [facility] [address] [place] [address], * RAPID STREP A (04/16/2019 8:31 AM BOOK TRIMMER) SPECIMEN TYPE THROAT 04/16/2019 8:[address] [facility] RAPID STREP TEST NEGATIVE NEGATIVE 04/16/2019 8:[address] [facility] STRUCTURE OF ANTERIOR PORTION OF NECK / Unknown 04/16/2019 8:31 AM BOOK TRIMMER us Candida MAGANA MICROBIOLOGY - GENERAL [place] Final Result [facility] [address] [place] [address], documented in this encounter Visit Diagnoses Diagnosis Nausea & vomiting- Primary Nausea with vomiting URI with cough and congestion documented in this encounter Administered Medications Inactive Administered Medications - up to 3 most recent administrations Medication Order MAR Action Action Date Dose Rate Site acetaminophen (TYLENOL) tablet 1,000 mg 1,000 mg, Oral, Once, 1 dose, On 04/16/19 at 0900, Maximum dose of acetaminophen is 4000 mg from all sources in 24 hours. Given 04/16/2019 8:38 AM BOOK TRIMMER 1,000 mg ondansetron (ZOFRAN-ODT) disintegrating tablet 4 mg 4 mg, Oral, Once, 1 dose, On 04/16/19 at 0900 Given 04/16/2019 8:38 AM BOOK TRIMMER 4 mg documented in this encounter Active and Recently Administered Medications Times are shown in BOOK TRIMMER. Scheduled Medication Order 04/14/2019 04/15/2019 04/16/2019 acetaminophen (TYLENOL) tablet 1,000 mg (COMPLETED) 1,000 mg, Oral, Once, 1 dose, On 04/16/19 at 0900, Maximum dose of acetaminophen is 4000 mg from all sources in 24 hours. 0838 (Given - Provid er: Joanne Malloy RN) ondansetron (ZOFRAN-ODT) disintegrating tablet 4 mg (COMPLETED) 4 mg, Oral, Once, 1 dose, On 04/16/19 at 0900 0838 (Given - Provid er: Joanne Malloy RN) documented in this encounter Care Teams Chlorine Operator Relationship Specialty Start Date End Date Chey Lee MD [address] [place] [address] PCP - General 03/20/16 documented as of this encounter
--- OUTSIDE RECORDS SUMMARY | 2024-02-18 17:01 | XMS_ITS | Encounter Summary ---
Author Organization [facility] Address [address] [place] [address]. [place] [address] [place] [address] Care Team Providers Care Mill Oiler Name Role Phone Mesfin Lee MD Primary Care Provider + [phone] Gemma Gomez MD Primary Care Provider Unavailable Encounter Details Date Type Department Care Team (Late st Contact Info) Description 10/06/2015 Emergency [facility] Emergency Room [place], [place] [id number] Charly Costello, DO [address] [facility] [id number] [place], [place] [id number] Social History Tobacco Use Types Packs/Day Years [...] Comments URINALYSIS WI REFLEX TO CULTURE STAT 10/07/2015 12:38 AM CDT COMPREHENSIVE METABOLIC PANEL STAT 10/06/2015 11:16 PM CDT CHORIONIC GONADOTROPIN HCG QL STAT 10/06/2015 11:16 PM CDT CBC W/DIFF AUTOMATED STAT 10/06/2015 11:16 PM CDT AMYLASE STAT 10/06/2015 11:16 PM CDT LIPASE STAT 10/06/2015 11:16 PM CDT documented in this encounter Results * URINALYSIS WI REFLEX TO CULTURE (10/07/2015 12:38 AM CDT) SOURCE (FLUID) URINE CLEAN CATCH 10/06/2015 11:59 PM CDT [facility] COLOR (U) YELLOW 10/07/2015 1:00 AM CDT [facility] TRANSPARENCY CLEAR 10/07/2015 1:00 AM CDT [facility] SPECIFIC GRAVITY (U) 1.021 1.001 - 1.030 10/07/2015 1:00 AM CDT [facility] U PH 5.0 5.0 - 9.0 10/07/2015 1:00 AM T [facility] LEUKOCYTES (U) NEGATIVE NEGATIVE 10/07/2015 1:00 AM CDT [facility] NITRITES NEGATIVE NEGATIVE 10/07/2015 1:00 AM T [facility] PROTEIN (U) NEGATIVE <30 MG/DL 10/07/2015 1:00 AM T [facility] URINE GLUCOSE NEGATIVE NEGATIVE MG/DL 10/07/2015 1:00 AM T [facility] KETONES MG/DL (U) NEGATIVE NEGATIVE MG/DL 10/07/2015 1:00 AM CDT [facility] UROBILINOGEN NEGATIVE NEGATIVE MG/DL 10/07/2015 1:00 AM T [facility] BILIRUBIN (U) NEGATIVE NEGATIVE MG/DL 10/07/2015 1:00 AM T [facility] BLOOD (U) NEGATIVE NEGATIVE 10/07/2015 1:00 AM T [facility] CULTURE & SENSITIVITY INDICATED? CULTURE IS NOT INDICATED 10/07/2015 1:00 AM CDT [facility] SQUAMOUS EPITHELIALS MANY /LPF 10/07/2015 1:00 AM CDT [facility] MUCUS RARE /LPF 10/07/2015 1:00 AM CDT [facility] WBC/HPF 1 <6 /HPF 10/07/2015 1:00 AM CDT [facility] RBC/HPF 2 <6 /HPF 10/07/2015 1:00 AM CDT [facility] 10/07/2015 12:3 8 AM CDT 10/07/2015 12:49 AM CDT us Generic Conversion Md GOMEZ URINE ORDERABLES Final Result Performing Organization Address [facility]/ZIP Co de Phone Number [facility] [address] [place] [address], * CHORIONIC GONADOTROPINHCG QL (10/06/2015 11:16 PM CDT) PREG SCREEN-SERUM NEGATIVE 10/06/2015 11:43 PM CDT [facility] 10/06/2015 11:1 6 PM CDT 10/06/2015 11:30 PM CDT us Generic Conversion Md GOMEZ LABORATORY Final R esult Performing Organization Address City/[facility]/ZIP Co de Phone Number [facility] [address] [place] [address], [place] [phone] * LIPASE (10/06/2015 11:16 PM CDT) LIPASE 36 13 - 60 U/L 10/07/2015 12:15 AM CDT [facility] SERUM OR PLASMA SPECIMEN / Unknown 10/06/2015 11:16 PM CDT 10/06/2015 11:29 PM CDT us Generic Conversion Md GOMEZ LABORATORY Final R esult [facility] [address] [place] [address], [place] [phone] * (ABNORMAL) COMPREHENSIVE METABOLIC PANEL (10/06/2015 11:16 PM CDT) [facility] Signature GLUCOSE 92 70 - 99 mg/dL 10/07/2015 12:15 AM CDT [facility] BUN 11 8 - 23 mg/dL 10/07/2015 12:15 AM CDT [facility] CREATININE S/P/B 0.57(L) 0.60 - 1.10 mg/dL 10/07/2015 12:15 AM CDT [facility] SODIUM S/P/B 137 136 - 145 mmol/L 10/07/2015 12:15 AM CDT [facility] POTASSIUM S/P/B 3.9 3.5 - 5.1 mmol/L 10/07/2015 12:15 AM CDT [facility] CHLORIDE S/P/B 101 98 - 107 mmol/L 10/07/2015 12:15 AM CDT [facility] CO2 24 22 - 29 mmol/L 10/07/2015 12:15 AM CDT [facility] BILIRUBIN TOTAL S/P/B 0.1(L) 0.2 - 1.2 mg/dL 10/07/2015 12:15 AM CDT [facility] CALCIUM S/P/B 9.0 8.6 - 10.2 mg/dL 10/07/2015 12:15 AM CDT [facility] ALKALINE PHOSPHATASE S/P/B 107(H) 35 - 104 U/L 10/07/2015 12:15 AM CDT [facility] AST 16 0 - 32 U/L 10/07/2015 12:15 AM CDT [facility] TOTAL PROTEIN S/P/B 7.2 6.4 - 8.3 g/dL 10/07/2015 12:15 AM CDT [facility] ALBUMIN S/P/B 4.0 3.5 - 5.2 g/dL 10/07/2015 12:15 AM CDT [facility] ALT 17 0 - 33 U/L 10/07/2015 12:15 AM CDT [facility] GLOBULIN 3.2 2.3 - 3.6 g/dL 10/07/2015 12:15 AM CDT [facility] A/G RATIO 1.3 1.0 - 2.0 10/07/2015 12:15 AM CDT [facility] ANION GAP 16 8 - 20 10/07/2015 12:15 AM CDT [facility] EGFR NON-AFR. AMER. >60 >60 mL/min/1.7 3m'2 10/07/2015 12:15 AM CDT [facility] EGFR AFR. AMER. >60 >60 mL/min/1.7 3m'2 10/07/2015 12:15 AM CDT [facility] Comment: NOTE: eGFR is not calculated for patients <18 years of age. This is an estimated GFR (CKD EPI) and should not be used for calculating drug doses. 10/06/2015 11:1 6 PM CDT 10/06/2015 11:29 PM CDT us Generic Conversion Md GOMEZ LABORATORY Final R esult [facility] [address] [place] [address], * (ABNORMAL) CBC W/DIFF AUTOMATED (10/06/2015 11:16 PM CDT) WBC 17.0(H) 4.8 - 10.8 X10'3/uL 10/06/2015 11:33 PM CDT [facility] RBC 5.23 4.20 - 5.40 X10'6/uL 10/06/2015 11:33 PM CDT [facility] HGB 12.9 12.0 - 16.0 g/dL 10/06/2015 11:33 PM CDT [facility] HCT 40.6 38.0 - 48.0 % 10/06/2015 11:33 PM CDT [facility] MCV 77.6(L) 81.0 - 99.0 fL 10/06/2015 11:33 PM CDT [facility] MCH 24.7(L) 27.0 - 31.0 pg 10/06/2015 11:33 PM CDT [facility] MCHC 31.8(L) 32.0 - 36.0 g/dL 10/06/2015 11:33 PM CDT [facility] RDW 16.6(H) 11.5 - 14.5 % 10/06/2015 11:33 PM CDT [facility] PLT 399 130 - 400 X10'3/uL 10/06/2015 11:33 PM T [facility] MPV 10.5 9.3 - 12.2 fL 10/06/2015 11:33 PM T [facility] DIFFERENTIAL TYPE AUTOMATED 10/06/2015 11:33 PM T [facility] NEUTROPHILS % 54.4 43.0 - 65.0 % 10/06/2015 11:33 PM CDT [facility] LYMPHOCYTES % 27.7 20.0 - 46.0 % 10/06/2015 11:33 PM T [facility] MONOCYTES % 5.7 5.0 - 12.0 % 10/06/2015 11:33 PM T [facility] EOSINOPHILS 11.3(H) 1.0 - 3.0 % 10/06/2015 11:33 PM CDT [facility] BASOPHILS 0.7 0.0 - 1.0 % 10/06/2015 11:33 PM CDT [facility] IMMATURE GRANS % 0.2 0.0 - 1.0 % 10/06/2015 11:33 PM CDT [facility] 10/06/2015 11:1 6 PM CDT 10/06/2015 11:29 PM CDT us Generic Conversion Md GOMEZ LABORATORY Final R esult Performing Organization Address City/[facility]/ZIP Co de Phone Number [facility] [address] [place] [address], [place] [phone] * AMYLASE (10/06/2015 11:16 PM CDT) AMYLASE S/P/B 51 28 - 100 U/L 10/07/2015 12:15 AM CDT [facility] SERUM OR PLASMA SPECIMEN / Unknown 10/06/2015 11:16 PM CDT 10/06/2015 11:29 PM CDT us Generic Linus Gomez MD LABORATORY Final R esrosanne Performing Organization Address City/[facility]/ZIP Co de Phone Number [facility] [address] [place] [address], [place] [phone] documented in this encounter Visit Diagnoses Diagnosis Duodenitis without bleeding Duodenitis without mention of hemorrhage documented in this encounter Care Teams Mill Oiler Relationship Specialty Start Date End Date Mesfin Lee MD [address] [place] [address] PCP - General 03/20/16 Gemma Gomez MD PCP - General 10/06/15 7 documented as of this encounter
== END 2024-02-11 17:54 | disposition home or self-care (01) ==
PROVIDERS: Emergency Provider Physician Assistant; PCP Family Medicine
DX: S39.92XA Unspecified injury of lower back, initial encounter (principal); S59.912A Unspecified injury of left forearm, initial encounter; W19.XXXA Unspecified fall, initial encounter; I10 Essential (primary) hypertension
CPT/HCPCS: 72131; 73090; 81025; 96372; 99284; J1885

== ENCOUNTER 2024-10-26 15:03 | Emergency (ER) | payer OTHER, SELFPAY ==
--- NOTE | ~2024-10-26 | XR_ITS ---
EXAMINATION: XR knee LT min 4V, 10/26/2024 15:20 CDT HISTORY: pain COMPARISON: No comparisons available. Findings: No acute fracture or malalignment. Moderate tricompartmental degenerative changes Soft tissues unremarkable. Impression: No acute fracture or malalignment. Reviewed, dictated and finalized at location A. Impression: No acute fracture or malalignment.
[2024-10-26 15:03] VITALS: BP 152/95; PULSE 108; RESP 18; TEMP 36.2; O2SAT 97
--- NOTE | 2024-10-26 16:02 | ED.LOWEXIN ---
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 She denies any trauma, fever, chills, nausea, vomiting, pain got worse over the last few days. Related Data Home Medications ?Medication ?Instructions ?Recorded ?Confirmed ?Last Taken ?Type gabapentin 600 mg tablet 300 mg PO DIRECTED 01/26/22 01/26/22 Unknown History Allergies Allergy/AdvReac Type Severity Reaction Status Date / Time Penicillins Allergy Unknown HIVES Verified 10/26/24 15:05 cheese Allergy Rash Verified 10/26/24 15:05 Review of Systems Review of Systems: All systems reviewed & are unremarkable except as noted in HPI and below PMFSH Past Medical History Medical History History of depression History of hypertension Surgical History Surgical History History of hernia repair History of cholecystectomy Social History Social History Smoking status: Never smoker Exam Narrative: General appearance: Well-developed, well-nourished Skin: Normal color Head: Normocephalic, nontraumatic Eyes: Clear conjunctiva ENT: Oropharynx normal, ears normal, nose normal Neck: Supple, nontender Chest and respiratory: Airway patent, no respiratory distress, no accessory muscle use Heart: Regular rate/rhythm Vascular: Normal peripheral pulses, normal capillary refill. 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, no gross motor deficit Course Vital Signs Vital signs: Vital Signs Temperature 36.2 C L 10/26/24 15:03 Pulse Rate 108 H 10/26/24 15:03 Respiratory Rate 18 10/26/24 15:03 Blood Pressure 152/95 H 10/26/24 15:03 Pulse Oximetry 97 10/26/24 15:03 Temperature 36.2 C L 10/26/24 15:03 Pulse Rate 108 H 10/26/24 15:03 Respiratory Rate 18 10/26/24 15:03 Blood Pressure 152/95 H 10/26/24 15:03 Pulse Oximetry 97 10/26/24 15:03 MDM - Extremity Injury (Lower) MDM Narrative Medical decision making narrative: Chronic left knee deformity, pointing inwards for years high likely the underlying cause of patient chronic pain. X-ray of the left knee showed no acute abnormality, patient need to be followed by Orthopedics for further evaluation and management Differential Diagnosis Differential diagnosis: Likely other (As above) Imaging Data Radiologist's impression: Impressions Knee X-Ray 10/26/24 15:34 Impression: No acute fracture or malalignment. Critical Care Time Critical Care Time Critical Care Time: No Discharge Plan Discharge Clinical Impression: Knee pain, left, Genu valgum Patient Disposition: Home Condition: Stable Instructions: Knee Pain (ED) Additional Instructions: Return if symptoms are worsening , call orthopedic for appointment, take Tylenol as as needed for aches and pain, continue home medications. Physical therapy Custom made brace at can support the knee and reduced in word angulation Surgery in severe cases Patient Language: Namibian Prescriptions: New diclofenac sodium 75 mg tablet,delayed release (DR/EC) 75 mg PO BID PRN (Reason: pain) Qty: 20 0RF No Action gabapentin 600 mg tablet 300 mg PO DIRECTED pseudoephedrine HCl [12 Hour Decongestant] 120 mg tablet extended release 120 mg PO Q12H PRN (Reason: nasal congestion) Qty: 12 0RF fluticasone propionate [Flonase Allergy Relief] 50 mcg/actuation spray,suspension 2 spray NASAL DAILY 14 Days Qty: 15.8 0RF Rx Instructions: administer into each nostril sulfamethoxazole-trimethoprim 800-160 mg tablet 1 tablet PO Q12H Qty: 14 0RF naproxen 375 mg tablet 375 mg PO BID Qty: 14 0RF hydrocodone-acetaminophen 5-325 mg tablet 1 tablet PO Q6H PRN (Reason: pain) Qty: 12 0RF cyclobenzaprine 5 mg tablet 5 mg PO TID PRN (Reason: muscle spasm) Qty: 30 0RF acetaminophen 500 mg tablet 500 mg PO Q6H PRN (Reason: pain) Qty: 30 0RF ibuprofen 400 mg tablet 400 mg PO Q6H PRN (Reason: pain) Qty: 30 0RF prednisone 10 mg tablet 10 mg PO DAILY Qty: 30 0RF Rx Instructions: 60mg po daily on day 1, 40mg po daily on days 2-4, 30mg po daily on days 5-6, 20mg po daily on days 7-8, 10mg po daily on days 9-10 famotidine [Pepcid] 40 mg tablet 40 mg PO DAILY 10 Days Qty: 10 0RF Follow-up/Referrals: Jesus,Mesfin Shanks MD [Non-Staff, Unknown]
--- OUTSIDE RECORDS SUMMARY | 2024-10-26 16:19 | XMS_ITS | Clinical Summary ---
Author Organization [facility] Address [address] [place] [id number] Care Team Providers Care Behavioral Instructor Name Role Phone Mesfin Lee MD Primary Care Provid er Allergies Active Allergy Reactions Criticality Noted Date Comments Penicillin G Potassium Unknown 06/28/2018 Since she was little Penicillins Rash High 06/28/2017 Medications ibuprofen 200 mg tab/cap Take by mouth every 6 (six) hours as needed for pain Active acetaminophen (TYLENOL) 325 mg tablet Take 2 tablets (650 mg total) by mouth every 6 (six) hours as needed for pain Active lisinopril-hydroCH LOROthiazide (ZESTORETIC) 20-25 mg per tabletIndications: hypertension Take 0.5 tablets by mouth daily 30 tablet 5 4 Active gabapentin (NEURONTIN) 300 mg capsuleIndications :Lumbar disc disease with radiculopathy Take 2 capsules (600 mg total) by mouth 3 (three) times a day 180 capsule 3 4 Active ARIPiprazole (ABILIFY) 10 mg tabletIndications: Moderately severe major depression (HCC),Generalized anxiety disorder Take 1 tablet (10 mg total) by mouth daily 30 tablet 5 4 Active divalproex ER (DEPAKOTE ER) 500 mg 24 hr tabletIndications: Moderately severe major depression (HCC),Generalized anxiety disorder Take 1 tablet (500 mg total) by mouth daily 30 tablet 5 4 Active traZODone (DESYREL) 100 mg tabletIndications: Insomnia, unspecified type TAKE 1 TABLET(100 MG) BY MOUTH EVERY NIGHT AT BEDTIME 30 tablet 5 4 Active tiZANidine (ZANAFLEX) 4 mg tabletIndications: Lumbar spondylosis TAKE 1 TABLET(4 MG) BY MOUTH TWICE DAILY NEEDED FOR MUSCLE SPASMS 60 tablet 2 4 Active indomethacin (INDOCIN) 50 mg capsuleIndications :Acute left-sided low back pain without sciatica,Acute left-sided thoracic back pain Take 1 capsule (50 mg total) by mouth 3 (three) times a day with meals 90 capsule 1 4 Active Active Problems Problem Noted Date Diagnosed Date Lumbar spondylosis 06/30/2022 Assessment & Plan (06/30/2022 11:48 AM CDT): PT ordered. Trial zanaflex. Consider MRI. Consider MBB. Cigarette nicotine dependenc e with nicotine-induced disorder 05/16/2022 Assessment & Plan (05/16/2022 9:28 AM CDT): Chronic. Congratulated patient on quitting cigarettes several days ago. She is currently vaping. Discussed option for using patches which she can get [id number] or I can prescribe for her. She would like to revisit this at the next visit as she work is working on several other lifestyle changes at this time. Morbid (severe) obesity due to excess calories 0 04/12/2022 Body mass index 40.0-44.9, adult (CMS/HCC) 04/12 Lumbar degenerative disc disease 08/09/2019 Chronic lumbar radiculopathy 08/09/2019 Overview (06/30/2022): IOV - PT 2014 did not help. No recent PT. Currently on gabapentin 300mg TID. No recent MRI. LESI in the past with benefit. - LESI L4-5 09/23/14, 10/14/14, 10/28/14 (Dr. Santizo) - helped for a few mos - XR 04/2022 FINDINGS: SEGMENTATION: Normal. No transitional anatomy. ALIGNMENT: Normal VERTEBRAE: Minimal L1 on L2, L2 on L3 and L3 on L4 retrolisthesis facet joints unremarkable. DISCS: Multilevel degenerative disc disease, most pronounced and moderate at L4-L5 and [id number] at L5-S1. accounting for differences in modality, no significant progression from 2019 OTHER: Cholecystectomy clips are noted IMPRESSION: No acute osseous findings in the lumbar spine Multilevel lumbar degenerative disc disease, most pronounced and [id number] at L4-L5. Inferior lumbar facet osteoarthritis. Assessment & Plan (06/30/2022 11:48 AM CDT): Increased gabapentin to 600mg TID (escalation schedule provided). PT ordered. Consider MRI. Consider LESI vs SNRI. Discussed she should only use one NSAID and maximum dosing. Assessment & Plan (05/16/2022 9:29 AM CDT): Chronic. Uncontrolled. - continue gabapentin 300 mg 3 times a day. - start Tylenol 3 as directed. Instructed not to use any other Tylenol products with this medication. She can alternate ibuprofen - recommend heat, topical pain relief, lidocaine patches - try to wear supportive shoe - follow-up with pain management when they have an opening Pain in right knee 08/09/2019 Osteoarthritis of left patellofemoral joint 02/13 Assessment & Plan (03/02/2019 7:31 PM AUTOMATIC BOW MAKER MACHINE TENDER): We discussed the risks, benefits and alternatives of treatment options for osteoarthritis of the knee. From least invasive to most invasive: The only thing to slow the progression of osteoarthritis is weight loss. For every pound lost 4 to 6 pounds of stress is relieved from the knee. Formal physical therapy to help with flexion, extension, mobility and strength. Unloading braces to unload the affected side. The possibility of TENs unit to control pain and swelling. Nonsteroidal anti-inflammatories with the potential of cardiac and GI upset. Steroid and Visco supplement injection. And eventual total knee arthroplasty. Patient will work on weight loss and anti-inflammatories as needed Strain of gastrocnemius muscle, left, initial en counter 01/18/2019 Assessment & Plan (03/02/2019 7:31 PM AUTOMATIC BOW MAKER MACHINE TENDER): Grade 1 medial collateral ligament strain. No surgical intervention Assessment & Plan (02/04/2019 11:14 AM AUTOMATIC BOW MAKER MACHINE TENDER): Three episodes of wanting to give way since she has been back to work. Still has pain and swelling. Fail conservative treatment consisting of nonsteroidal anti-inflammatories and activity modification. Recommend MRI. Follow-up after MRI Assessment & Plan (01/18/2019 6:31 AM AUTOMATIC BOW MAKER MACHINE TENDER): We discussed the risks, benefits and alternatives. Continue with ice, elevation, ibuprofen or Aleve and Tylenol. Gradually increase activities as tolerated. Follow-up if no significant improvement. Class 3 severe obesity due t o excess calories with body mass index (BMI) of 40.0 to 44.9 in adult 01/18/2019 Assessment & Plan (05/16/2022 9:30 AM CDT): Chronic. Uncontrolled. Referral for bariatric surgery provided today. Discussed with her options for surgery and the pre counseling process and post surgery lifestyle changes that are necessary. She would like to continue to pursue surgery. Continue to work on current lifestyle changes including cutting down carbohydrates and soda. Assessment & Plan (03/02/2019 7:32 PM AUTOMATIC BOW MAKER MACHINE TENDER): We discussed the adverse effects of weight on osteoarthritis. For every 1 lb lost, 4-6 lb of stress is relieved from the knee. Continue weight loss through diet and exercise. Consider low carbohydrate diet Assessment & Plan (02/04/2019 11:15 AM AUTOMATIC BOW MAKER MACHINE TENDER): Continue weight loss through diet and exercise Assessment & Plan (01/18/2019 6:32 AM AUTOMATIC BOW MAKER MACHINE TENDER): We discussed the adverse effects of weight on the knee. Every 1 lb lost, leads to a decrease of 4-6 lb of stress across the knee Benign essential hypertension 03/27/2018 Leukocytosis 03/27/2018 Lumbar stenosis 03/27/2018 Moderately severe major depression 03/27/2018 Immunizations Immunization Administration Dates Next Due Influenza, Quadrivalent, Spl it, Preservative Free, Intramuscular 12/06/2018,11/26/2017,11/21/2017 Influenza, Unspecified 02/12/2024(Deferr ed: Patient Refused),01/24/2023(Deferred: Patient Refused),12/28/2021,11/13/2020 Pfizer SARS-CoV-2 Monovalent Vaccination (12+ Yrs) PURPLE 03/07/2020,02/15/2020 Tdap 01/18/2012 Surgical History Surgery Date Site/Laterality Comments TUBAL LIGATION OVARIAN CYSTECTOMY CHOLECYSTECTOMY HERNIA REPAIR HAND SURGERY Right CERVIX SURGERY Medical History Medical History Date Comments Depression Hypertension Diverticulitis Family History Medical History Relation Name Comments No Known Problems Father COPD Mother Diabetes Mother Hyperthyroidism Mother Neuropathy Mother Non-Hodgkin's Lymphoma Mother Hyperlipidemia Other Parkinsonism Other Relation Name Status Comments Father Alive Mother Alive Other Social History Tobacco Use Types Packs/Day Years Used Date Smoking Tobacco: Every Day Cigarettes 1 20 Smokeless Tobacco: Never Tobacco Cessation:Ready to Q uit: Not Asked; Counseling Given: Not Answered Alcohol Use Standard Drinks/Week Comments Yes 0 (1 standard drink = 0.6 oz pur e alcohol) socially AUDIT-C Answer Date Recorded Q1: How often do you have a drink containing alcohol? Never 06/30/2022 Q2: How many drinks containi ng alcohol do you have on a typical day when you are drinking? Patient does not drink Frequency of Binge Drinking Not on file 06/13 PHQ-2 Answer Date Recorded PHQ-2 Total Score 4 05/23/2023 PHQ-9 Answer Date Recorded PHQ-9 Total Score 15 05/23/2023 Personal Safety Answer Date Recorded Have you ever been in or are you currently in a harmful physical or emotional relationship or is someone making you feel afraid or unsafe? 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 Not on file Not on file Not on file Obstetrics History Para Term AB IAB SAB Ectopic Multiple Livin g Live Births 3 Date Outcome GA Total Labor Labor/2nd/3rd Weight Sex Type Anes PTL Judi A1 A5 Name Clin Last Filed Vital Signs Vital Sign Reading Time Taken Comments Blood Pressure 116/82 02/12/2024 9:47 AM AUTOMATIC BOW MAKER MACHINE TENDER Pulse 97 02/12/2024 9:47 AM AUTOMATIC BOW MAKER MACHINE TENDER Temperature 36.7 C (98.1 F) 02/12/2024 9:47 AM AUTOMATIC BOW MAKER MACHINE TENDER Respiratory Rate 18 02/12/2024 9:47 AM AUTOMATIC BOW MAKER MACHINE TENDER Oxygen Saturation 99% 02/12/2024 9:47 AM AUTOMATIC BOW MAKER MACHINE TENDER Inhaled Oxygen Concentration - - Weight 114.1 kg (251 lb 8 oz) 02/12/2024 9:47 AM AUTOMATIC BOW MAKER MACHINE TENDER Height 172.7 cm (5' 8) 02/12/2024 9:47 AM AUTOMATIC BOW MAKER MACHINE TENDER Body Mass Index 38.24 02/12/2024 9:47 AM AUTOMATIC BOW MAKER MACHINE TENDER Plan of Treatment Health Maintenance Due Date Last Done Comments Cervical Cancer Screening 1983 Hepatitis C Screening 1983 Hepatitis B Screening 2001 Pneumococcal vaccine <65 (1 of 2 - PCV) 2002 HPV Vaccines (1 - 3-dose SCD M series) 2010 DTaP/Tdap/Td Vaccine (2 - Td or Tdap) 01/17/2022 01/18/2012 Regular Well Visit/Exam 18-64 04/12/2023 04/12/2022, 04/12/2022 Depression Screening 05/22/2024 05/23/2023, 05/23/2023, 05/16/2022, Additional history exists Breast Cancer Screening-Mammogram 08/07/2024 024 Covid-19 Vaccine (2024-2 6 season) 2024 03/07/2020, 02/15/2020 Influenza Vaccine (#1) 2024 2, 11/13/2020, 12/06/2018, Additional history exists Varicella Vaccines Discontinued Goals Goal Patient Goal Type Associated Problems Recent Progress Patient-Stated? Author CCM Chronic Pain Care Plan Chronic Care Management No Sima Roy, CHRISTIAN Note: Problem: Chronic Pain Goals: 1. Minimize further functional decline 2. Maximize quality of life 3. Control pain Strategies: - Activity/exercise program recommendation - Conservative stepwise pain medicine strategy with multi-disciplinary approach - Recommend healthy lifestyle strategies and compensatory methods as needed Procedures Procedure Name Priority Date/Time Associated Diagnosis Comments SCREENING MAMMOGRAM BILATERAL W [place]AY Schedule Routine, Read Routine (OP Routine) 08/08/2023 7:26 AM CDT Screening mammogram for breast cancer from Last 3 Months or Most Recently Relevant to Health Maintenance Results * (ABNORMAL) Screening Mammogram Bilateral W [place] (08/08/2023 7:26 AM CDT) Anatomical Region Laterality Modality Breast Bilateral Mammography Impressions 08/08/2023 8:08 AM CDT BI-RADS ATLAS category (overall): 0 - Incomplete: Needs Additional Imaging Evaluation 1. Further evaluation with diagnostic right mammography and possible diagnostic right breast ultrasound is recommended. 2. No mammographic evidence of malignancy in the left breast. Routine screening mammography of the left breast is recommended in 1 year. The patient has been or will be contacted. Narrative 08/08/2023 8:08 AM CDT Screening Mammogram Bilateral W Jay: 08/08/23 The study was acquired using full field digital technology and interpreted from soft copy. 2D digital mammographic views, as well as 3D digital tomosynthesis were performed in the CC and MLO projections. CLINICAL: Screening mammogram for breast cancer. No relevant medical history has been documented for this patient. No known family history of breast cancer. COMPARISON: Baseline Screening Mammography. No prior mammography is available for comparison. BREAST TISSUE: The breasts are almost entirely fatty. FINDINGS: There is a focal asymmetry in the central right breast. No other suspicious masses, suspicious calcifications, or other suspicious findings are seen within either breast. Mesfin Lee MD IM MAMMO PROCEDURES Final Result from Last 3 Months or Most Recently Relevant to Health Maintenance Insurance [facility] [address] [place] [id number] [facility] [employer] COMPENSATION GENERIC Care Teams Behavioral Instructor Relationship Specialty Start Date End Date Mesfin Lee MD [address] [place] [address] PCP - General 04/09/18
[2024-10-26] MEDS: KETOROLAC (*BKC) 60 MG/2 ML VIAL IM (16:44)
== END 2024-10-26 16:53 | disposition home or self-care (01) ==
LOC: ANHED 16:16
PROVIDERS: Emergency Provider Emergency Medicine
DX: M25.562 Pain in left knee (principal); M21.062 Valgus deformity, not elsewhere classified, left knee; F32.A Depression, unspecified; I10 Essential (primary) hypertension
CPT/HCPCS: 73564; 96372; 99283; J1885

== ENCOUNTER 2024-11-21 11:05 | Emergency (ER) | payer OTHER, SELFPAY ==
[2024-11-21] VITALS (7 sets, daily range): BP systolic 129–153; BP diastolic 69–99; PULSE 54–84; RESP 14–20; TEMP 36.4–37; O2SAT 96–100
--- NOTE | ~2024-11-21 | XR_ITS ---
Examination: XR chest 2V Clinical History: cp Comparison: 12/18/2023 Technique: PA and Lateral Findings: Cardiomediastinal silhouette normal size and configuration. Lungs clear. No acute bony abnormality. IMPRESSION: 1. No acute cardiopulmonary findings. Reviewed, dictated and finalized at location R.
--- NOTE | 2024-11-21 11:52 | ECG_ITS ---
Test Date: 2024-11-21 12:03:03 Measurements Intervals [place] Rate: 71 P: 41 WY: 155 QRS: 35 QRSD: 90 T: 40 QT: 359 QTc: 392 Interpretive Statements SINUS RHYTHM POSSIBLE LEFT ATRIAL ENLARGEMENT BORDERLINE ECG Compared to ECG 12/18/2023 21:51:15 HEART RATE HAS DECREASED Electronically Signed On 11-21-2024 12:25:04 CDT by Waylon Morales D.O.
[2024-11-21 12:10] LABS: Hematocrit 40.4 % (37.0-47.0); Hemoglobin 12.6 g/dL (12.0-15.0); Immature Granulocyte Percent A 0.5 % (0-0.5); Lymphocytes Absolute Auto 3.52 K/mm3 (0.9-3.2); Mean Corpuscular HGB Conc 31.2 g/dl (32-36); Mean Corpuscular Hemoglobin 24.1 pg (26-34); Mean Corpuscular Volume 77.2 fl (80-100); Nucleated Red Blood Cells Absolute Auto 0.000 K/mm3 (0.0-0.012); Nucleated Red Blood Cells Perc 0.0 % (0.0-0.2); Platelet Count Result 391 k/mm3 (150-375); Red Blood Count 5.23 M/mm3 (4.2-5.4); White Blood Count 15.2 K/mm3 (4.5-10.0)
[2024-11-21 12:26] LABS: Alanine Aminotransferase 21 U/L (6-35); Albumin Level 4.1 g/dL (3.5-5.1); Alkaline Phosphatase 103 U/L (38-126); Anion Gap 9 mmol/L (4-12); Aspartate Amino Transferase 22 U/L (14-36); Bilirubin,Total 0.1 mg/dL (0.2-1.3); Blood Urea Nitrogen 11 mg/dL (7-17); Calcium 9.2 mg/dL (8.4-10.2); Carbon Dioxide 23 mmol/L (22-30); Chloride 104 mmol/L (98-107); Estimated CRCL calculation 152 ml/min; Estimated Glomerular Filt Rate > 60; Glucose 95 mg/dL (65-110); Lipase 84 U/L (23-300); Potassium 4.2 mmol/L (3.4-5.0); Sodium 136 mmol/L (137-145); Total Protein 7.5 g/dL (6.3-8.2)
[2024-11-21 12:33] LABS: Troponin I < 0.012 ng/mL (0.000-0.034)
[2024-11-21 12:41] LABS: INR 1.0; Prothrombin Time 13.4 Seconds (11.1-14.7)
[2024-11-21 12:42] LABS: Partial Thromboplastin Time 29.1 Seconds (22.3-36.8)
[2024-11-21] MEDS: ASPIRIN 81 MG CHEWABLE TABLET 324 MG PO (14:16)
--- NOTE | 2024-11-21 14:38 | ED.CHESTPAIN ---
HPI - Chest Pain General Chief Complaint: Chest Pain Stated Complaint: cp Time Seen by Provider: 11/21/24 14:06 History of Present Illness HPI narrative: This is a 39-year-old female history of hypertension, restless leg syndrome who presents the ED for headache and chest pain. Patient states that she was at work this morning when she had onset headache with nausea. The pain worsened for about hour before she can chest pain as well. She was checked by the nurse practitioner at her work her blood pressure to be in the 160s/110s prompting her to be sent here for further evaluation. Patient states the chest pain has improved. She continues to have a bifrontal headache with nausea. She occasionally gets headaches but not like this. Denies fevers, chills, shortness of breath, cough, congestion, abdominal pain, diarrhea, constipation. Related Data Home Medications ?Medication ?Instructions ?Recorded ?Confirmed ?Last Taken ?Type gabapentin 600 mg tablet 300 mg PO DIRECTED 01/26/22 01/26/22 Unknown History Allergies Allergy/AdvReac Type Severity Reaction Status Date / Time Penicillins Allergy Unknown HIVES Verified 11/21/24 11:54 cheese Allergy Rash Verified 11/21/24 11:54 Review of Systems Review of Systems: Gen.: Denies fevers or chills Eyes: Denies eye pain or visual change ENT: Denies congestion Respiratory: Denies shortness of breath or cough CV: As per HPI GI: As per HPI denies burning, urgency, frequency or hematuria Musculoskeletal: Denies back pain or muscle pain Neuro: Denies numbness, tingling, weakness or focal weakness Skin: Denies rash Except as documented, all other systems reviewed and negative [facility] Past Medical History Medical History History of depression History of hypertension Surgical History Surgical History History of hernia repair History of cholecystectomy Social History Social History Smoking status: Never smoker Course Vital Signs Vital signs: Vital Signs Temperature 97.6 F 11/21/24 11:52 Pulse Rate 84 11/21/24 11:52 Respiratory Rate 20 11/21/24 11:52 Blood Pressure 153/99 H 11/21/24 11:52 Pulse Oximetry 100 11/21/24 11:52 Oxygen Delivery Room Air 11/21/24 11:52 Temperature 98.6 F 11/21/24 14:09 Pulse Rate 59 L 11/21/24 16: Respiratory Rate 14 11/21/24 16:26 Blood Pressure 130/81 11/21/24 16:26 Pulse Oximetry 100 11/21/24 16:26 Oxygen Delivery Room Air 11/21/24 14:13 MDM - Chest Pain MDM Narrative Medical decision making narrative: 39-year-old female presenting for headache chest pain and hypertension. On initial evaluation patient was in mild distress, afebrile, hemodynamically stable. Heart and lungs clear. Nonfocal neuro exam. Chest pain had resolved by the time I evaluated the patient. She had a leukocytosis at 15.2 but no neutrophil predominance. CMP without significant abnormalities. UA was consistent with a UTI. COVID/flu/RSV negative. Chest x-ray showed no acute process. Patient was given Toradol, Compazine, Benadryl, 1 L NS bolus with [id number] improvement of her headache. Patient was deemed prescriptions time. She was given a prescription for Keflex. She was advised follow-up with her PCP in the next week for re-evaluation. Patient was agreeable to this plan. Given strict return precautions. Differential Diagnosis Differential diagnosis: Likely unstable angina pectoris, atypical chest pain and other (migraine, tension headache, hypertensive urgency/emergency) Medical Records Data Attestation: I reviewed the patient's medical records. Lab Data Attestation: I reviewed the patient's lab results. 11/21/24 12:00 11/21/24 12:00 Labs: Lab Results 11/21/24 11/21/24 11/21/24 Range/Units 12:00 14:48 14:49 WBC 15.2 H (4.5-10.0) K/mm3 RBC 5.23 (4.2-5.4) M/mm3 Hgb 12.6 (12.0-15.0) g/dL Hct 40.4 (37.0-47.0) % MCV 77.2 L (80-100) fl MCH 24.1 L (26-34) pg MCHC 31.2 L (32-36) g/dl RDW 17.2 H (11.5-14.5) % Plt Count 391 H (150-375) k/mm3 MPV 10.3 (7.4-10.4) fl Immature Gran % (Auto) 0.5 (0-0.5) % Neut % (Auto) 64.2 (45.5-73.1) % Lymph % (Auto) 23.2 (18.3-44.2) % [place] % (Auto) 8.4 (2.6-8.5) % Eos % (Auto) 3.2 (0-4.4) % Baso % (Auto) 0.5 (0.2-1.2) % Lymph # (Auto) 3.52 H (0.9-3.2) K/mm3 [place] # (Auto) 1.3 H (0.1-0.6) K/mm3 Eos # (Auto) 0.5 H (0-0.3) K/mm3 Baso # (Auto) 0.1 (0.0-0.1) K/mm3 Abs Immat Gran (auto) 0.07 H (0.00-0.031) K/mm3 Absolute Neuts (auto) 9.8 H (1.3-6.7) K/mm3 Absolute Nucleated RBC 0.000 (0.0-0.012) K/mm3 Nucleated RBC % 0.0 (0.0-0.2) % PT 13.4 (11.1-14.7) Seconds INR 1.0 APTT 29.1 (22.3-36.8) Seconds Sodium 136 L (137-145) mmol/L Potassium 4.2 (3.4-5.0) mmol/L Chloride 104 (98-107) mmol/L Carbon Dioxide 23 (22-30) mmol/L Anion Gap 9 (4-12) mmol/L BUN 11 (7-17) mg/dL Creatinine 0.56 L (0.7-1.0) mg/dL Estim Creat Clear Calc 152 ml/min Estimated GFR > 60 (59 - ) Glucose 95 (65-110) mg/dL Calcium 9.2 (8.4-10.2) mg/dL Total Bilirubin 0.1 L (0.2-1.3) mg/dL AST 22 (14-36) U/L ALT 21 (6-35) U/L Alkaline Phosphatase 103 (38-126) U/L Troponin I < 0.012 < 0.012 (0.000-0.034) ng/mL Total Protein 7.5 (6.3-8.2) g/dL Albumin 4.1 (3.5-5.1) g/dL Lipase 84 (23-300) U/L Urine Color (Yellow) Urine Appearance (Clear) Urine pH (5.0-9.0) Ur Specific [place] (1.001-1.035) Urine Protein (Negative) mg/dL Urine Glucose (UA) (Negative) mg/dL Urine Ketones (Negative) mg/dL Ur Blood (Man) (Negative) Urine Nitrate (Negative) Urine Bilirubin (Negative) Urine Urobilinogen (<2.0) mg/dL Add Ur Microanalysis Leukocyte Esterase Rfl (Negative) ALEJANDRO/UL Urine RBC (0-2) /hpf Urine WBC (0-3) /hpf Ur Squamous Epith Cells (Few) /hpf Urine Bacteria /hpf Urine Casts Urine Test Influenza A (RT-PCR) Negative (Negative) Influenza B (RT-PCR) Negative (Negative) RSV (RT-PCR) Negative (Negative) SARS-CoV-2 RNA (RT-PCR) Negative (Negative) 11/21/24 Range/Units 15:28 WBC (4.5-10.0) K/mm3 RBC (4.2-5.4) M/mm3 Hgb (12.0-15.0) g/dL Hct (37.0-47.0) % MCV (80-100) fl MCH (26-34) pg MCHC (32-36) g/dl RDW (11.5-14.5) % Plt Count (150-375) k/mm3 MPV (7.4-10.4) fl Immature Gran % (Auto) (0-0.5) % Neut % (Auto) (45.5-73.1) % Lymph % (Auto) (18.3-44.2) % [place] % (Auto) (2.6-8.5) % Eos % (Auto) (0-4.4) % Baso % (Auto) (0.2-1.2) % Lymph # (Auto) (0.9-3.2) K/mm3 [place] # (Auto) (0.1-0.6) K/mm3 Eos # (Auto) (0-0.3) K/mm3 Baso # (Auto) (0.0-0.1) K/mm3 Abs Immat Gran (auto) (0.00-0.031) K/mm3 Absolute Neuts (auto) (1.3-6.7) K/mm3 Absolute Nucleated RBC (0.0-0.012) K/mm3 Nucleated RBC % (0.0-0.2) % PT (11.1-14.7) Seconds INR APTT (22.3-36.8) Seconds Sodium (137-145) mmol/L Potassium (3.4-5.0) mmol/L Chloride (98-107) mmol/L Carbon Dioxide (22-30) mmol/L Anion Gap (4-12) mmol/L BUN (7-17) mg/dL Creatinine (0.7-1.0) mg/dL Estim Creat Clear Calc ml/min Estimated GFR (59 - ) Glucose (65-110) mg/dL Calcium (8.4-10.2) mg/dL Total Bilirubin (0.2-1.3) mg/dL AST (14-36) U/L ALT (6-35) U/L Alkaline Phosphatase (38-126) U/L Troponin I (0.000-0.034) ng/mL Total Protein (6.3-8.2) g/dL Albumin (3.5-5.1) g/dL Lipase (23-300) U/L Urine Color Yellow (Yellow) Urine Appearance Clear (Clear) Urine pH 5.5 (5.0-9.0) Ur Specific [place] 1.020 (1.001-1.035) Urine Protein Negative (Negative) mg/dL Urine Glucose (UA) Negative (Negative) mg/dL Urine Ketones Negative (Negative) mg/dL Ur Blood (Man) Negative (Negative) Urine Nitrate Negative (Negative) Urine Bilirubin Negative (Negative) Urine Urobilinogen 0.2 (<2.0) mg/dL Add Ur Microanalysis Reviewed Leukocyte Esterase Rfl Trace H (Negative) ALEJANDRO/UL Urine RBC 0-2 (0-2) /hpf Urine WBC 6-10 H (0-3) /hpf Ur Squamous Epith Cells Few (Few) /hpf Urine Bacteria 1+ H /hpf Urine Casts 0-2 Urine Test Negative Influenza A (RT-PCR) (Negative) Influenza B (RT-PCR) (Negative) RSV (RT-PCR) (Negative) SARS-CoV-2 RNA (RT-PCR) (Negative) Imaging Data Attestation: I personally reviewed and interpreted this imaging study as follows: Radiologist's impression: Impressions Chest X-Ray 11/21/24 12:40 IMPRESSION: 1. No acute cardiopulmonary findings. ECG Data EKG #1: Attestation: I personally reviewed and interpreted this ECG as follows: ECG completion date: 11/21/24 ECG completion time: 12:03 Interpretation: Normal sinus rhythm rate of 71, normal axis, normal intervals, no acute ST or T-wave changes Discharge Plan Discharge Clinical Impression: Tobacco dependence Headache Qualifiers: Headache type: tension-type Headache chronicity pattern: acute headache Intractability: not intractable Qualified Code(s): G44.209 - Tension-type headache, unspecified, not intractable UTI (urinary tract infection) Qualifiers: Urinary tract infection type: acute cystitis Hematuria presence: without hematuria Qualified Code(s): N30.00 - Acute cystitis without hematuria Patient Disposition: Home Condition: Stable Instructions: Antibiotic Form, How to Stop Smoking (ED), Urinary Tract Infection in Women (ED), Acute Headache (DC) Additional Instructions: You were found to have a UTI. Your labs EKG, chest x-ray were reassuring and not indicative of her damage at this time. Take Bactrim and Compazine as prescribed. He may take Tylenol and ibuprofen for pain. Follow up with her PCP in the next week for re-evaluation. Return to the ED for any new or worsening symptoms. For pain, discomfort or temperature greater than or equal to 100.8 ?F please alternate the following 2 medications as needed. First medication- acetaminophen/Tylenol- 1000mg every 6-8 hours as needed for above indications. Second medication- ibuprofen/Motrin-600mg every 6-8 hours as needed for above indication. Patient Language: Lithuanian Prescriptions: New cephalexin 500 mg capsule 500 mg PO Q12H 7 Days Qty: 14 0RF prochlorperazine maleate [Compazine] 10 mg tablet 10 mg PO Q8H PRN (Reason: nausea and vomiting) Qty: 20 0RF No Action gabapentin 600 mg tablet 300 mg PO DIRECTED pseudoephedrine HCl [12 Hour Decongestant] 120 mg tablet extended release 120 mg PO Q12H PRN (Reason: nasal congestion) Qty: 12 0RF fluticasone propionate [Flonase Allergy Relief] 50 mcg/actuation spray,suspension 2 spray NASAL DAILY 14 Days Qty: 15.8 0RF Rx Instructions: administer into each nostril sulfamethoxazole-trimethoprim 800-160 mg tablet 1 tablet PO Q12H Qty: 14 0RF naproxen 375 mg tablet 375 mg PO BID Qty: 14 0RF hydrocodone-acetaminophen 5-325 mg tablet 1 tablet PO Q6H PRN (Reason: pain) Qty: 12 0RF cyclobenzaprine 5 mg tablet 5 mg PO TID PRN (Reason: muscle spasm) Qty: 30 0RF acetaminophen 500 mg tablet 500 mg PO Q6H PRN (Reason: pain) Qty: 30 0RF ibuprofen 400 mg tablet 400 mg PO Q6H PRN (Reason: pain) Qty: 30 0RF prednisone 10 mg tablet 10 mg PO DAILY Qty: 30 0RF Rx Instructions: 60mg po daily on day 1, 40mg po daily on days 2-4, 30mg po daily on days 5-6, 20mg po daily on days 7-8, 10mg po daily on days 9-10 famotidine [Pepcid] 40 mg tablet 40 mg PO DAILY 10 Days Qty: 10 0RF diclofenac sodium 75 mg tablet,delayed release (DR/EC) 75 mg PO BID PRN (Reason: pain) Qty: 20 0RF Follow-up/Referrals: PHYSICIAN NOT ON STAFF,NONSTAFF [Primary Care Provider]
[2024-11-21] MEDS: SODIUM CHLORIDE 0.9% IV 1,000 ML 999 ML IV CONT (15:03)
[2024-11-21] MEDS: PROCHLORPERAZINE EDISYLATE 10 MG/2 ML VIAL IV PUSH (15:03)
[2024-11-21] MEDS: KETOROLAC 15 MG/ML VIAL (*BKC) IV PUSH (15:03)
[2024-11-21] MEDS: BELLADONNA ALK/PHENOB ELIX 10 ML, MAG HYDROX/ALUMINUM HYD/SIMETH 30 ML, LIDOCAINE 2% VI... PO (15:04)
[2024-11-21 15:21] LABS: Troponin I < 0.012 ng/mL (0.000-0.034)
[2024-11-21 15:29] LABS: Influenza A QL RT-PCR Negative (Negative); Influenza B QL RT-PCR Negative (Negative); RSV RNA, RT-PCR Negative (Negative); SARS-CoV-2 RNA PCR Negative (Negative)
[2024-11-21 15:38] LABS: Pregnancy On Board Control Positive
[2024-11-21 15:52] LABS: Add Urine Microscopic? YES; Appearance Urine Clear (Clear); Glucose Urine UA Negative (Negative); Leukocyte Esterase Ur Trace LEU/UL (Negative); Need Manual Microscopic Reviewed; Nitrate Urine Negative (Negative); Non Pathogenic Casts 0-2; Specific Grav Ur 1.020 (1.001-1.035)
== END 2024-11-21 16:28 | disposition home or self-care (01) ==
PROVIDERS: Emergency Medicine; Emergency Provider Student in an Organized Health Care Education/Training Program
DX: N39.0 Urinary tract infection, site not specified (principal); G44.209 Tension-type headache, unspecified, not intractable; F17.200 Nicotine dependence, unspecified, uncomplicated; Z20.822 Contact with and (suspected) exposure to COVID-19; I10 Essential (primary) hypertension; G25.81 Restless legs syndrome; F32.A Depression, unspecified; Z90.49 Acquired absence of other specified parts of digestive tract; R94.31 Abnormal electrocardiogram [ECG] [EKG]
CPT/HCPCS: 36415; 71046; 80053; 81001; 81025; 83690; 84484; 85025; 85610; 85730; 87086; 87637; 93005; 96361; 96374; 96375; 99284; A9270; J0780; J1200; J1885; J7030